=== PATIENT | female | born 1930 | race Caucasian/White ===

== ENCOUNTER → 2016-11-12 | Outpatient (CLI) | payer OTHER, BC ==
[~2016-11-12] MED LIST: ACET-1175 PO; ATOR10TA82 PO; CLOP1TAB15 PO; CYCL5TAB PO; DOCU-94 PO; ERGO1CAP35 PO; ESCI10TA17 PO; FURO-85 PO; INSDGI SC; LEVO100T PO; SKINCRE34 TOP; TRIA0.1C55 TOP
[2016-11-12 12:49] LABS: BASO % 0.7 %; BASO ABS # 0.07 K/uL (0-0.2); COMPLETE YES; EOS % 2.1 %; IG% 0.4 %; LYMPH ABS # 2.45 K/uL (1.2-3.4); MEAN CELL VOLUME 89.2 fL (80-100); MEAN CORPUSCULAR HEMOGLOBIN 28.4 pg (25-34); MEAN CORPUSCULAR HGB CONC 31.8 g/dl (32-36); MEAN PLATELET VOLUME 10.5 fL (7.4-10.4); MONO % 5.7 %; NEUT % 68.1 %; PLATELET COUNT 336 K/uL (130-400); RED BLOOD COUNT 4.37 M/uL (4.2-5.4); WHITE BLOOD COUNT 10.63 K/uL (4.8-10.8)
[2016-11-12 13:36] LABS: BLOOD UREA NITROGEN 23 mg/dl (7-18); BUN/CREATININE RATIO 19.1 (10-20); CARBON DIOXIDE 26 mmol/L (21-32); CHLORIDE 108 mmol/L (98-107); GLUCOSE 117 mg/dl (70-99); POTASSIUM 4.4 mmol/L (3.5-5.1); SODIUM 141 mmol/L (136-145)
== END | disposition home or self-care (01) ==
LOC: C.LABOAKS 14:10
PROVIDERS: ATTEND Internal Medicine Critical Care Medicine
DX: D64.9 Anemia, unspecified (principal); N28.9 Disorder of kidney and ureter, unspecified

== ENCOUNTER → 2017-06-17 | Outpatient (CLI) | payer OTHER, BC ==
[2017-06-17 13:06] LABS: ESTIMATED AVERAGE GLUCOSE 146 mg/dl; HA1C FLAG Normal (Normal)
== END | disposition home or self-care (01) ==
LOC: C.LABOAKS 09:33
PROVIDERS: ATTEND Nurse Practitioner
DX: E11.9 Type 2 diabetes mellitus without complications (principal)

== ENCOUNTER → 2017-06-24 | Outpatient (CLI) | payer OTHER, BC ==
[2017-06-24 12:48] LABS: HEMATOCRIT 36.9 % (37-47); MEAN CELL VOLUME 86.4 fL (80-100); MEAN CORPUSCULAR HEMOGLOBIN 28.1 pg (25-34); MEAN CORPUSCULAR HGB CONC 32.5 g/dl (32-36); MEAN PLATELET VOLUME 10.5 fL (7.4-10.4); PLATELET COUNT 317 K/uL (130-400); RED CELL DISTRIBUTION WIDTH SD 44.2 fL (36.4-46.3); WHITE BLOOD COUNT 9.36 K/uL (4.8-10.8)
[2017-06-24 13:07] LABS: ALBUMIN 3.3 gm/dl (3.4-5.0); BLOOD UREA NITROGEN 26 mg/dl (7-18); CALCIUM 9.3 mg/dl (8.5-10.1); CARBON DIOXIDE 26 mmol/L (21-32); GLUCOSE 114 mg/dl (70-99); POTASSIUM 4.2 mmol/L (3.5-5.1); SODIUM 138 mmol/L (136-145)
[2017-06-24 13:08] LABS: PHOSPHORUS 3.9 mg/dl (2.5-4.9)
== END | disposition home or self-care (01) ==
LOC: C.LABOAKS 09:23
PROVIDERS: ATTEND Internal Medicine Nephrology
DX: N18.3 Chronic kidney disease, stage 3 (moderate) (principal); I10 Essential (primary) hypertension; N25.81 Secondary hyperparathyroidism of renal origin; Z86.73 Personal history of transient ischemic attack (TIA), and cerebral infarction without residual deficits; E55.9 Vitamin D deficiency, unspecified

== ENCOUNTER → 2017-09-09 | Outpatient (CLI) | payer OTHER, BC ==
[2017-09-09 13:23] LABS: HEMOGLOBIN A1C 6.4 % (4.5-5.6)
== END | disposition home or self-care (01) ==
LOC: C.LABOAKS 09:27
PROVIDERS: ATTEND Nurse Practitioner
DX: E11.9 Type 2 diabetes mellitus without complications (principal)

== ENCOUNTER 2017-11-04 11:36 | Emergency (ER) | payer OTHER, BC ==
[~2017-11-04] VITALS: Ht 157.5 cm; Wt 101.9 kg
[2017-11-04 11:45] VITALS: TEMP 36.4; Ht 157.5 cm; Wt 101.9 kg
--- NOTE | 2017-11-04 12:22 | EMERGENCY ROOM VISIT NOTE ---
History First contact with patient: 11:41 Chief Complaint: FALL Stated Complaint: FALL History of Present Illness The patient is a 87 year old female who presents to the Emergency Room via EMS after a fall. The patient lives at an assisted living facility. She stood up from her recliner today to go to the bathroom and tangled her feet in a blanket. She fell and hit her right arm on the bedside table, then fell to the ground. Patient has baseline dementia and history is limited secondary to this. She reports pain in her right arm and right ribs. She rates her discomfort a 5/10. There was a skin tear to the right forearm which has already been dressed. Review of Systems Review of systems limited secondary to patient's baseline dementia. Past Medical/Surgical History Medical Problems: (1) CAD (coronary artery disease) (2) Diabetes (3) Diabetic peripheral neuropathy associated with type 2 diabetes mellitus (4) Foot deformity (5) Hypothyroidism (6) Loss of sensation (7) Obesity (8) Pacemaker (9) Skin cancer Family History No pertinent family history Social History Smoking Status: Never Smoker Drug Use: none Marital Status: Housing Status: lives alone Occupation Status: retired Current/Historical Medications Scheduled Atorvastatin (Lipitor), 10 MG PO DAILY Cholecalciferol (Vitamin D3), 50,000 UNITS PO MONTHLY Clopidogrel (Plavix), 75 MG PO DAILY Escitalopram (Lexapro), 10 MG PO DAILY Furosemide (Lasix), 20 MG PO every other day Hydrocortisone (Topical) (Hydrocortisone), 1 APPLN TOP BID Insulin Glargine (Basaglar Kwikpen), 40 UNITS SQ DAILY Levothyroxine Sodium (Synthroid), 100 MCG PO DAILY Nystatin (Topical) (Nystatin), 1 APPLN TOP TID Scheduled PRN Acetaminophen (Tylenol), 650 MG PO Q4 PRN for Pain Docusate Sodium (Colace), 100 MG PO BID PRN for Constipation Miscellaneous Medications Triamcinolone Acetonide (Topic (Triderm) Physical Exam Vital Signs Date Time Temp Pulse Resp B/P (MAP) Pulse Ox O2 Delivery O2 Flow Rate FiO2 11/04/17 14:16 70 18 137/65 96 Room Air 11/04/17 12:51 68 18 149/72 95 Room Air 11/04/17 11:45 36.4 74 18 181/61 94 Room Air Physical Exam VITALS: Vitals are noted on the nurse's note and reviewed by myself. GENERAL: This is an 87-year-old female, in no acute distress, nondiaphoretic, well-developed well-nourished. SKIN: There is a superficial skin tear to the lateral aspect of the right forearm. No lacerations. No active bleeding. HEAD: Normocephalic atraumatic. EARS: External auditory canals clear, tympanic membranes pearly gutierrez without erythema or effusion bilaterally. No hemotympanum. EYES: Pupils equal round and reactive to light and accommodation. Extraocular movements intact. NECK: Supple without nuchal rigidity. Cervical spine is nontender. HEART: Regular rate and rhythm without murmurs gallops or rubs. LUNGS: Clear to auscultation bilaterally without wheezes, rales or rhonchi. CHEST: There is mild tenderness to palpation to the right anterior lower ribs. ABDOMEN: Positive bowel sounds x 4. Soft, nontender to palpation. MUSCULOSKELETAL: There is a large area of ecchymosis and edema to the right upper arm. This area is tender to palpation. The remainder of the extremities are without deformity or tenderness to palpation. Full range of motion throughout. NEURO: Patient was alert and oriented to person and place only. Medical Decision & Procedures ER Provider Diagnostic Interpretation: HEAD WITHOUT CONTRAST (CT) IMPRESSION: 1. No significant change compared to the prior study. No acute intracranial abnormality. CT SCAN OF THE CERVICAL SPINE IMPRESSION: 1. There is no evidence of fracture or subluxation involving the cervical spine. 2. Osteopenia and spondylotic change as above. CT SCAN OF THE CHEST WITHOUT IV CONTRAST IMPRESSION: 1. There is no acute posttraumatic intrathoracic abnormality. 2. Cardiomegaly and emphysema. 3. No airspace consolidation, pleural effusion, or pneumothorax is identified. 4. Cirrhotic liver morphology. 5. Cholelithiasis. 6. Additional findings as above. RIGHT HUMERUS 2 VIEWS IMPRESSION: Soft tissue edema with no radiographic evidence of right humeral fracture. R FOREARM 2 VIEWS ROUTINE IMPRESSION: No acute osseous injury. Medical Decision Differential diagnosis includes fracture, contusion, intracranial bleeding, subdural hematoma, epidural hematoma, among others. The patient was evaluated as above. Multiple imaging studies were performed and read by radiology as noted above. These were negative for any acute fractures. Patient does have a large hematoma to the right upper arm. She has a skin tear to the right forearm which was dressed. She was discharged back to the assisted living facility and will follow up with her PCP. Medication Reconcilliation Current Medication List: was personally reviewed by me Blood Pressure Screening Patient's blood pressure: Elevated blood pressure Blood pressure disposition: Elevated BP felt to be situational Impression Primary Impression: Fall Additional Impressions: Contusion of multiple sites Hematoma of arm Skin tear of forearm without complication Departure Information Dispostion Home / Self-Care Condition GOOD Referrals Tin Kulkarni (PCP) Patient Instructions [facility] Additional Instructions For pain control, you can use the following [id number] medicines (if >12 yo): - Regular strength (325mg/tab) Tylenol (acetaminophen) 2 tabs every 4-6 hours as needed. Do not exceed 12 tablets in a 24 hour period. Avoid taking more than 4 grams (4000 mg) of Tylenol per day. This includes any other sources of acetaminophen you may take on a regular basis. - Regular strength (200 mg/tab) Advil (ibuprofen) 1-2 tabs every 4-6 hours as needed. Do not exceed a dose of 3200 mg per day. Follow-up with primary care this week for a recheck. Problem Qualifiers Primary Impression: Fall Encounter type: initial encounter Qualified Codes: W19.XXXA - Unspecified fall, initial encounter Additional Impressions: Hematoma of arm Encounter type: initial encounter Laterality: right Qualified Codes: S40.021A - Contusion of right upper arm, initial encounter Skin tear of forearm without complication Encounter type: initial encounter Laterality: right Qualified Codes: S51.811A - Laceration without foreign body of right forearm, initial encounter
--- NOTE | 2017-11-04 12:23 | DIAGNOSTIC IMAGING REPORT ---
HEAD WITHOUT CONTRAST (CT) CLINICAL HISTORY: 87 years-old Female presenting with fall, head injury. TECHNIQUE: Multidetector CT imaging of the head was performed without the use of intravenous contrast. IV contrast: None. A dose lowering technique was used consistent with the principles of ALARA (as low as reasonably achievable). COMPARISON: 06/09/2016. CT DOSE (mGy.cm): The estimated cumulative dose is 1647.72. FINDINGS: Treating Plant Operator topogram: Unremarkable. Proportional ventricular and sulcal prominence, likely age-related parenchymal volume loss. Periventricular and subcortical white matter hypoattenuation, nonspecific but likely indicative of chronic small vessel ischemic change. Cystic encephalomalacia and gliosis in the left frontoparietal region consistent with old infarct. No mass effect or midline shift. No hemorrhage or acute territorial infarct. No extra-axial fluid collection. Paranasal sinuses and mastoid air cells clear. Calvarium intact. Superficial subcutaneous nodules along the right frontal region possibly sebaceous cysts. These are unchanged from prior. IMPRESSION: 1. No significant change compared to the prior study. No acute intracranial abnormality. Electronically signed by: Rajendra Aguilar M.D. 11/04/2017 12:21 PM Dictated Date/Time: 11/04/2017 12:18 PM
--- NOTE | 2017-11-04 12:24 | DIAGNOSTIC IMAGING REPORT ---
CT SCAN OF THE CERVICAL SPINE CLINICAL HISTORY: Trauma. Fall. COMPARISON STUDY: CT angiogram of the neck dated 10/28/2014. TECHNIQUE: CT scan of the cervical spine is performed from the skull base to the upper thoracic spine. Images are reviewed in the axial, sagittal, and coronal planes. IV contrast was not administered for this examination. A dose lowering technique was utilized adhering to the principles of ALARA. FINDINGS: Skeletal structures: The skeletal structures are osteopenic. There is no evidence of fracture or subluxation involving the cervical spine. Vertebral body height and alignment are maintained. Anterior osteophytes are noted in the mid to lower cervical region. There is mild straightening of the cervical lordosis. The odontoid process and lateral masses are intact. The atlantoaxial articulation is preserved noting productive degenerative change. The spinous processes appear intact. There is mild to moderate multilevel cervical spondylosis. Uncovertebral and facet arthropathy contribute to neural from stenosis in the lower cervical region. Intervertebral discs: Ndxt-vz-[id number] disc space narrowing is seen at C4-C5, C5-C6, and C6-C7. Mild disc space narrowing is seen at the remaining cervical levels. Central canal: Posterior disc osteophyte complexes at C4-C5, C5-C6, and C6-C7 likely contribute to mild acquired compromise of the central canal. Soft tissues: The prevertebral and paraspinous soft tissues are within normal limits. Pacemaker leads are noted in the left axillary region. The thyroid gland is atrophic. Calvarium: The visualized calvarium at the skull base appears intact. Brain parenchyma: Partially visualized brain parenchyma the skull base is within normal limits noting age-related involutional change. Sinuses and mastoids: The visualized paranasal sinuses are clear. The mastoid air cells are well pneumatized. Lung apices: Clear as visualized. IMPRESSION: 1. There is no evidence of fracture or subluxation involving the cervical spine. 2. Osteopenia and spondylotic change as above. Electronically signed by: Papo Wing M.D. 11/04/2017 12:23 PM Dictated Date/Time: 11/04/2017 12:20 PM
[2017-11-04] MEDS ORDERED: NYST80OI TOP (12:28)
[2017-11-04] MEDS ORDERED: HYDR2.5L TOP (12:28)
[2017-11-04] MEDS ORDERED: INSU100I23 SQ (12:28)
[2017-11-04] MEDS ORDERED: TRIA0.1C2 (12:28)
[2017-11-04] MEDS ORDERED: CHOL1CAP95 PO (12:28)
--- NOTE | 2017-11-04 12:31 | DIAGNOSTIC IMAGING REPORT ---
CT SCAN OF THE CHEST WITHOUT IV CONTRAST CLINICAL HISTORY: Fall. Right rib injury. COMPARISON STUDY: Chest x-ray dated 06/09/2016. TECHNIQUE: CT scan of the thorax was performed from the thoracic inlet to the upper abdomen. Images are reviewed in the axial, sagittal, and coronal planes. IV contrast was not administered for this examination as per the referring clinician. A dose lowering technique was utilized adhering to the principles of ALARA. CT DOSE: 1647.72 mGy.cm FINDINGS: Thyroid: Atrophic. Thoracic aorta: There is atherosclerotic calcification of the thoracic aorta, which is normal in caliber and demonstrates standard 3-vessel arch anatomy. Heart: A 2-lead cardiac pacemaker is present in the left chest wall. The heart is enlarged and without pericardial effusion. There are coronary artery calcifications. Lungs and pleural spaces: There is mild emphysematous change. No airspace consolidation, pleural effusion, or pneumothorax is identified. There is elevation of right hemidiaphragm and bibasilar atelectasis. The trachea and central airways are clear. A punctate calcified granuloma is seen at the left apex. Mediastinum: There is no mediastinal lymphadenopathy. Elen: Not well assessed without IV contrast. Axillae: There is no axillary lymphadenopathy. Upper abdomen: There is a small hiatal hernia. Numerous calcified gallstones are identified. The liver is cirrhotic in morphology and slightly heterogeneous in attenuation. There is nodularity of the surface contour. A 1.9 cm left adrenal nodule meets CT criteria for a fat-containing adenoma. Skeletal structures: The skeletal structures are osteopenic. The bony thorax appears intact. No lytic or blastic bony lesions are seen. IMPRESSION: 1. There is no acute posttraumatic intrathoracic abnormality. 2. Cardiomegaly and emphysema. 3. No airspace consolidation, pleural effusion, or pneumothorax is identified. 4. Cirrhotic liver morphology. 5. Cholelithiasis. 6. Additional findings as above. Electronically signed by: Papo Wing M.D. 11/04/2017 12:30 PM Dictated Date/Time: 11/04/2017 12:19 PM
--- NOTE | 2017-11-04 12:43 | DIAGNOSTIC IMAGING REPORT ---
RIGHT HUMERUS 2 VIEWS CLINICAL HISTORY: Fall with right arm injury. FINDINGS: AP and lateral views of the right humerus are obtained. No prior studies are available for comparison at the time of dictation. The skeletal structures are osteopenic. No right humeral fracture is identified. The shoulder and elbow joints are grossly maintained. Soft tissue edema is present in the upper extremity. IMPRESSION: Soft tissue edema with no radiographic evidence of right humeral fracture. Electronically signed by: Papo Wing M.D. 11/04/2017 12:42 PM Dictated Date/Time: 11/04/2017 12:41 PM
--- NOTE | 2017-11-04 12:59 | DIAGNOSTIC IMAGING REPORT ---
R FOREARM 2 VIEWS ROUTINE CLINICAL HISTORY: 87 years-old Female presenting with fall, right arm injury. TECHNIQUE: Frontal and lateral views of the right forearm are obtained. COMPARISON: None. FINDINGS: Osteopenia may be present. No acute fracture or malalignment. No advanced degenerative change. No radiographic soft tissue abnormality. IMPRESSION: No acute osseous injury. Electronically signed by: Rajendra Aguilar M.D. 11/04/2017 12:57 PM Dictated Date/Time: 11/04/2017 12:56 PM
[2017-11-04 14:16] VITALS: BP 137/65; PULSE 70; O2SAT 96
== END 2017-11-04 14:38 | disposition home or self-care (01) ==
LOC: EDBD 11:36 → C.EDB 11:37
DX: S51.811A Laceration without foreign body of right forearm, initial encounter (principal); S40.021A Contusion of right upper arm, initial encounter; W01.190A Fall on same level from slipping, tripping and stumbling with subsequent striking against furniture, initial encounter; Y92.098 Other place in other non-institutional residence as the place of occurrence of the external cause; I25.10 Atherosclerotic heart disease of native coronary artery without angina pectoris; E03.9 Hypothyroidism, unspecified; Z95.0 Presence of cardiac pacemaker; Z79.899 Other long term (current) drug therapy; J43.9 Emphysema, unspecified

== ENCOUNTER → 2018-02-10 | Outpatient (CLI) | payer OTHER, BC ==
[~2018-02-10] MED LIST changes: +CHOL1CAP95 PO; -CYCL5TAB PO; -ERGO1CAP35 PO; +HYDR2.5L TOP; -INSDGI SC; +INSU100I23 SQ; +NYST80OI TOP; -SKINCRE34 TOP; +TRIA0.1C2; -TRIA0.1C55 TOP
== END | disposition home or self-care (01) ==
LOC: C.LABOAKS 16:25
PROVIDERS: ATTEND Internal Medicine Cardiovascular Disease
DX: Z00.00 Encounter for general adult medical examination without abnormal findings (principal); I10 Essential (primary) hypertension

== ENCOUNTER 2018-02-24 22:53 | Emergency (ER) | payer OTHER, BC ==
[~2018-02-24] VITALS: Ht 152.4 cm; Wt 101.4 kg
[2018-02-24 23:01] VITALS: TEMP 36.6; Ht 152.4 cm; Wt 101.4 kg
--- NOTE | 2018-02-24 23:21 | EMERGENCY ROOM VISIT NOTE ---
History Report prepared by Lexii: Justin Haas Under the Supervision of: Dr. Delon Irizarry M.D. First contact with patient: 23:11 Chief Complaint: FALL Stated Complaint: FALL/ R ARM & HEAD PAIN History of Present Illness The patient is an 87 year old female who presents to the Emergency Room with complaints of constant right shoulder pain beginning 6 hours ago. The nursing staff states the patient fell at 1700 this evening. They report she is mildly confused at baseline. The nursing staff notes the patient was sent here for evaluation because the staff at the [place] thought she may have hit her head, and she is currently taking Plavix. The patient states she fell trying to go to the bathroom. She reports she falls easily. The patient notes she does not know if she hit her head. She states she fell onto her right arm and moving her arm hurts. The patient notes he has a mild headache, but she denies LOC. She also denies chest pain and shortness of breath. The patient notes a history of a stroke. She denies focal weakness and similar symptoms to when she had a stroke. The patient denies taking Coumadin. Source of History: patient, prison notes, nursing staff Onset: 6 hours ago Position: shoulder (right) Timing: constant Modifying Factors (Worsening): movement Associated Symptoms: + headache, No LOC, No chest pain, No SOB, No weakness Review of Systems See HPI for pertinent positives & negatives. A total of 10 systems reviewed and were otherwise negative. Past Medical & Surgical Medical Problems: (1) CAD (coronary artery disease) (2) Diabetes (3) Diabetic peripheral neuropathy associated with type 2 diabetes mellitus (4) Foot deformity (5) Hypothyroidism (6) Loss of sensation (7) Obesity (8) Pacemaker (9) Skin cancer Old medical records were reviewed. Nurse's notes were reviewed and I agree with. Family History No pertinent family history Social History Smoking Status: Former Smoker Drug Use: none Marital Status: Housing Status: lives alone Occupation Status: retired Current/Historical Medications Scheduled Atorvastatin (Lipitor), 10 MG PO DAILY Cholecalciferol (Vitamin D3), 50,000 UNITS PO MONTHLY Clopidogrel (Plavix), 75 MG PO DAILY Escitalopram (Lexapro), 10 MG PO DAILY Furosemide (Lasix), 20 MG PO every other day Hydrocortisone (Topical) (Hydrocortisone), 1 APPLN TOP BID Insulin Glargine (Basaglar Kwikpen), 40 UNITS SQ DAILY Levothyroxine Sodium (Synthroid), 100 MCG PO DAILY Nystatin (Topical) (Nystatin), 1 APPLN TOP TID Scheduled PRN Acetaminophen (Tylenol), 650 MG PO Q4 PRN for Pain Docusate Sodium (Colace), 100 MG PO BID PRN for Constipation Miscellaneous Medications Triamcinolone Acetonide (Topic (Triderm) Allergies Coded Allergies: Sulfa Drugs (Verified Allergy, Intermediate, BLISTERS, HIVES (TAKES LASIX AT HOME, 11/17/06), 11/04/17) Morphine (Unverified Allergy, Unknown, pt unsure, 11/04/17) Physical Exam Vital Signs Date Time Temp Pulse Resp B/P (MAP) Pulse Ox O2 Delivery O2 Flow Rate FiO2 02/25/18 00:59 71 18 167/60 95 02/25/18 00:18 70 18 178/58 94 Room Air 02/24/18 23:01 36.6 77 20 225/75 94 Room Air Physical Exam General: Non-ill appearing older female in no acute distress. HEENT: Normal cephalic atraumatic. Pupils are equal round and reactive to light. Extraocular movements are intact. Oropharynx is pink with moist mucous membranes. No swelling of the mouth lips or tongue. Neck: Supple with a midline trachea. No meningeal signs or stiffness, no JVD or bruits. No Stridor. Chest: Clear to auscultation bilaterally. No wheezes or rhonchi. No increased work of breathing. Heart: regular rate and rhythm. Abdomen: Soft nontender, nondistended without rebound guarding or rigidity. Extremities: No cyanosis clubbing or edema. No calf tenderness or assymetry. Few small skin tears on the right arm. Tender to the right axilla. Lower extremity vascular disease. Spine/Back. Non tender to palpation. No CVA tenderness Skin: Good turgor without rashes. Neurologic exam: Cranial nerves two through 12 are intact. Motor and sensation are intact and symmetrical throughout. Awake, alert, and oriented x3. Answers questions appropriately. Medical Decision & Procedures ER Provider Diagnostic Interpretation: X-ray results as stated below per interpretation by me: Shoulder X-ray: Two view: No fracture or dislocation. Chest X-ray: Two view: No rib fracture or pneumothorax seen. Poor inspiratory effort. Pacemaker in place. Radiology results as stated below per my review and [employer] radiologist interpretation: CT HEAD: No intracranial hemorrhage or skull fracture. Atrophy with small vessel disease. Encephalomalacia in the left parietal lobe. Scalp nodules. Cataract surgery. Radiologist: Ebony Jules MD Study ready at 2339 and initial results transmitted at 2341. ED Course 2312: Past medical records reviewed. The patient was evaluated in room B04B, and a complete history and physical examination were performed. 0011: Upon reevaluation, the patient is resting comfortably. I discussed the results and treatment plan with her. She verbalized agreement of the treatment plan. The patient was discharged home. Medical Decision Differentials include, but are not limited to; orthopedic injury, syncope, fracture, intracranial hemorrhage, electrolyte or metabolic abnormality. This patient comes in as described above. She was placed in room before. She suffered a mechanical fall. She does not think she hit her head but staff was not sure she has a mild headache and is on Plavix a center here she also has pain along her right axilla/shoulder and skin tears on her right elbow and forearm. The the elbow form do not seem to be tender themselves. She is not exactly sure when her last tetanus shot was but believes is up-to-date. She recalls entire accident and did not have any chest pain or syncope or numbness or weakness. CAT scan of her head was unremarkable and there is no evidence of acute intracranial hemorrhage. Shoulder x-ray as well as chest x-ray were unremarkable for any fracture dislocation or pneumothorax. she looks well and [facility]. I think this is reasonable I will discharge her. She should not be up with assistance only return if increasing pain, worsening symptoms, any new problems or concerns. She is happy the plan and discharged to home. Head Trauma GCS Score: 15 Medication Reconcilliation Current Medication List: was personally reviewed by me Blood Pressure Screening Patient's blood pressure: Elevated blood pressure Blood pressure disposition: Referred to PCP Impression Primary Impression: Closed head injury Additional Impression: Contusion of right shoulder Scribe Attestation The scribe's documentation has been prepared under my direction and personally reviewed by me in its entirety. I confirm that the note above accurately reflects all work, treatment, procedures, and medical decision making performed by me. Departure Information Dispostion Home / Self-Care Referrals [facility] (PCP) Forms HOME CARE DOCUMENTATION FORM, IMPORTANT VISIT INFORMATION Patient Instructions My [facility] Additional Instructions Be careful when getting up and down. Ask for assistance Return if: Worsening of symptoms, fever or chills, not acting like self, increasing pain or problems, any new problems or concerns Follow-up with your doctor within the next couple days for recheck or return to the ER at any point if symptoms worsen Problem Qualifiers Primary Impression: Closed head injury Encounter type: initial encounter Qualified Codes: S09.90XA - Unspecified injury of head, initial encounter Additional Impression: Contusion of right shoulder Encounter type: initial encounter Qualified Codes: S40.011A - Contusion of right shoulder, initial encounter
[2018-02-25 00:59] VITALS: BP 167/60; PULSE 71; O2SAT 95
--- NOTE | 2018-02-25 06:36 | DIAGNOSTIC IMAGING REPORT ---
R SHOULDER MIN 2 VIEWS ROUTINE HISTORY: 87 years-old Female eval for trauma acute right shoulder pain status post fall COMPARISON: Right humerus radiographs 11/04/2017 TECHNIQUE: 3 views of the right shoulder FINDINGS: Bones appear mildly demineralized. Mild glenohumeral and mild to moderate AC joint osteoarthritis. No acute fracture or dislocation. No opaque foreign body. IMPRESSION: No acute fracture or dislocation. The above report was generated using voice recognition software. It may contain grammatical, syntax or spelling errors. Electronically signed by: Franc Valencia M.D. 02/25/2018 6:34 AM Dictated Date/Time: 02/25/2018 6:33 AM
--- NOTE | 2018-02-25 06:38 | DIAGNOSTIC IMAGING REPORT ---
CT HEAD WITHOUT CONTRAST (CT) CLINICAL HISTORY: Increasing confusion status post head trauma COMPARISON STUDY: 11/04/2017 TECHNIQUE: Axial CT of the brain is performed from the vertex to the skull base. IV contrast was not administered for this examination. A dose lowering technique was utilized adhering to the principles of ALARA. CT DOSE: 537.48 mGy.cm FINDINGS: No intra or extra-axial mass lesions are visualized. There is no CT evidence of acute cortical infarction. There is no evidence of midline shift. There is no acute hemorrhage. No calvarial fractures are visualized. There are patchy white matter hypodensities likely on a small vessel basis. 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 There is no evidence of pathologic ventricular dilatation. There is no evidence of acute sinusitis. Frontal scalp nodules likely represent sebaceous cysts. IMPRESSION: No acute intracranial findings Electronically signed by: Holland Navarrete M.D. 02/25/2018 6:37 AM Dictated Date/Time: 02/25/2018 6:35 AM
--- NOTE | 2018-02-25 06:40 | DIAGNOSTIC IMAGING REPORT ---
CHEST 2 VIEWS ROUTINE HISTORY: 87 years-old Female eval for trauma acute chest trauma status post fall COMPARISON: Chest radiograph 06/09/2016, chest CT 11/04/2017, CT abdomen and pelvis 10/14/2014 TECHNIQUE: AP and lateral views of the chest FINDINGS: Left subclavian pacer is noted with leads overlying the right heart. Cardiac silhouette is again enlarged. Calcification of the aorta. Mild right hemidiaphragmatic elevation. Moderate vascular congestion without pneumothorax, large pleural effusion or overt pulmonary edema. Hazy opacities about the left lung base suggest atelectasis. Degenerative changes of the shoulders and spine. Mild anterior endplate compression deformity of what appears to be the L2 vertebral body appears new from comparison. IMPRESSION: 1. No acute process. 2. Cardiomegaly with pulmonary vascular congestion. 3. 25% anterior endplate compression deformity of a lumbar vertebral segment, likely L2 is new from comparison CT 10/14/2014. Correlate clinically to exclude acute injury. The above report was generated using voice recognition software. It may contain grammatical, syntax or spelling errors. Electronically signed by: Franc Valencia M.D. 02/25/2018 6:38 AM Dictated Date/Time: 02/25/2018 6:35 AM
== END 2018-02-25 01:00 | disposition home or self-care (01) ==
LOC: EDBD 22:53 → C.EDB 22:54
DX: S40.011A Contusion of right shoulder, initial encounter (principal); W19.XXXA Unspecified fall, initial encounter; Y92.199 Unspecified place in other specified residential institution as the place of occurrence of the external cause; I25.10 Atherosclerotic heart disease of native coronary artery without angina pectoris; E11.40 Type 2 diabetes mellitus with diabetic neuropathy, unspecified; E03.9 Hypothyroidism, unspecified; E66.9 Obesity, unspecified; Z95.0 Presence of cardiac pacemaker; Z85.828 Personal history of other malignant neoplasm of skin; Z87.891 Personal history of nicotine dependence; Z79.01 Long term (current) use of anticoagulants; Z79.899 Other long term (current) drug therapy; Z88.2 Allergy status to sulfonamides; Z88.5 Allergy status to narcotic agent

== ENCOUNTER 2018-08-01 16:24 | Inpatient (IN) ==
[2018-08-01] MEDS ORDERED: METOCLOPRAMIDE HCL INJ 5 MG/ML 2 ML VIAL IV STA (16:40)
[2018-08-01] MEDS ORDERED: PIPERACILL/TAZOBAC CONSULT ACTIVE PRN ×2 (16:40→21:30)
[2018-08-01] MEDS ORDERED: PIPERACILLIN/TAZOBACTAM 4.5 GM/120 ML BAG IV ONE (16:40)
[2018-08-01 17:03] LABS: Basophils # (auto) 0.02 K/uL (0-0.2); Basophils % (auto) 0.1 %; Eosinophils # (auto) 0.04 K/uL (0-0.5); Eosinophils % (auto) 0.2 %; Hematocrit (blood only) 35.4 % (37-47); Hemoglobin 11.6 g/dL (12.0-16.0); Immature Granulocytes # (auto) 0.06 K/uL (0.00-0.02); Immature Granulocytes % (auto) 0.3 %; Lymphocytes # (auto) 2.39 K/uL (1.2-3.4); Lymphocytes % (auto) 12.9 %; Mean Corpuscular Hgb Conc 32.8 g/dL (32-36); Mean Corpuscular Volume 89.2 fL (80-100); Mean Platelet Volume 9.9 fL (7.4-10.4); Monocytes # (auto) 0.51 K/uL (0.11-0.59); Monocytes % (auto) 2.8 %; Neutrophils # (auto) 15.52 K/uL (1.4-6.5); Neutrophils % (auto) 83.7 %; Platelet Count 247 K/uL (130-400); RDW Coefficient of Variation 14.2 % (11.5-14.5); RDW Standard Deviation 46.4 fL (36.4-46.3); Red Blood Count 3.97 M/uL (4.2-5.4); White Blood Count 18.54 K/uL (4.8-10.8)
[2018-08-01 17:05] LABS: Oxygen Saturation VBG 62.7 %; pH VBG 7.41 (7.36-7.41)
--- NOTE | 2018-08-01 17:13 | XRay Report ---
XR chest 1V portable HISTORY: 88 years-old Female Chest Pain acute atypical chest pain COMPARISON: Chest radiograph 07/04/2018 TECHNIQUE: Portable AP view of the chest FINDINGS: Cardiac silhouette is enlarged, unchanged. Mild pulmonary vascular congestion persists. No pneumothor ax, large pleural effusion or overt pulmonary edema. Unchanged right hemidiaphragmatic elevation. Mil d chronic interstitial coarsening. Degenerative changes of the shoulders and spine. Stable positioning of left subclavian pacer. Calcifi cation the thoracic aortic arch. IMPRESSION: 1. Cardiomegaly with pulmonary vascular congestion. 2. Chronic right hemidiaphragmatic elevation. The above report was generated using voice recognition software. It may contain grammatical, syntax o r spelling errors. Electronically signed by: Franc Valencia M.D. 08/01/2018 5:12 PM
[2018-08-01 17:19] LABS: Alanine Aminotransferase 16 U/L (12-78); Albumin Level 3.1 gm/dl (3.4-5.0); Aspartate Aminotransferase 15 U/L (15-37); BUN Creatinine Ratio 18.1 (10-20); Blood Urea Nitrogen 29 mg/dl (7-18); Carbon Dioxide 26 mmol/L (21-32); Chloride 104 mmol/L (98-107); Creatinine Clr Calc Pharmacy 29.3 ml/min; Est GFR (African American) 33.2; Est GFR (Non-African American) 28.7; Glucose 151 mg/dl (70-99); Magnesium 2.2 mg/dl (1.8-2.4); Potassium 4.3 mmol/L (3.5-5.1); Sodium 138 mmol/L (136-145)
[2018-08-01 17:24] LABS: Albumin Globulin Ratio 0.7 (0.9-2); Alkaline Phosphatase 69 U/L (45-117); Bilirubin,Total 0.6 mg/dl (0.2-1); Globulin 4.5 gm/dl (2.5-4.0); NT Pro B Type Natriuretic Pept 2574 pg/ml (0-1800); Total Protein 7.6 gm/dl (6.4-8.2); Troponin I < 0.015 ng/ml (0-0.045)
[2018-08-01] MEDS ORDERED: FUROSEMIDE 40 MG/4 ML VIAL IV STA (17:35)
--- NOTE | 2018-08-01 17:52 | Emergency Department Note ---
Entered by Chau Thao acting as a scribe for Heriberto Orozco MD History of Present Illness General Chief complaint: Shortness of Breath/Dyspnea Stated complaint: SOB Time Seen by Provider: 08/01/18 16:31 Source: patient and other (nurse) History of Present Illness Onset (ago): hour(s) (found today by staff) Location: chest (lungs) Pain Consistency: + other (persistent) Quality: + other (shortness of breath) Associated symptoms: + other (found with vomit on shirt; denies current nausea) ; no chest pain The patient is an 88 year old white female with a history of CHF who presents to the Emergency Room from [facility] with complaints of persistent shortness of breath. Nursing staff reports that the patient was found by [facility] staff today to be very short of breath with vomit on her shirt. Her temperature was 99 and she was given Duoneb prior to arrival. She states that the patients oxygen saturation is typically around 88% on room air. The patient reports that she does not normally wear supplemental oxygen. She denies current nausea, abdominal pain, or chest pain. She notes that she has never used C-PAP. She reports that she has been short of breath for a long time and is unsure if it has worsened in the past few days. Home Medications Home Medications Medication Instructions Recorded Confirmed Type acetaminophen [Acetaminophen Extra 500 mg PO Q4 PRN MDD 3g/24hr 07/04/18 History Strength] atorvastatin 10 mg PO DAILY 07/04/18 08/01/18 History clopidogrel 75 mg PO DAILY 07/04/18 08/01/18 History ergocalciferol (vitamin D2) 50,000 unit PO WK 07/04/18 08/01/18 History [Vitamin D2] escitalopram oxalate 10 mg PO DAILY 07/04/18 08/01/18 History furosemide 20 mg PO Q OTHER DAY 07/04/18 08/01/18 History levothyroxine 88 mcg PO DAILY 07/04/18 08/01/18 History insulin glargine [Lantus Solostar 35 unit SUBCUT QPM 08/01/18 08/01/18 History U-100 Insulin] loperamide [Imodium A-D] 2 mg PO Q3H PRN MDD 8 TABS 08/01/18 08/01/18 History magnesium hydroxide [Milk of 30 ml PO DAILY PRN 08/01/18 08/01/18 History Magnesia] nystatin 1 applic TOPICAL TID PRN 08/01/18 08/01/18 History Allergies Allergy/AdvReac Type Severity Reaction Status Date / Time Sulfa (Sulfonamide Allergy Intermediate BLISTERS, Verified 08/01/18 17:51 Antibiotics) HIVES morphine Allergy Unknown pt unsure Unverified 08/01/18 17:51 Past Med/Surg History Social History Current Living Situation Comment: [facility] Feels Safe at Home: Yes Smoking Status: Never smoker Review of Systems See HPI for pertinent positives & negatives. and A total of 10 systems reviewed and were otherwise negative Physical Exam Vital Signs Vital Signs - 24 hr 08/01/18 16:35 08/01/18 16:36 08/01/18 16:38 Temperature 37.5 C Temperature Source Oral Sepsis Recent Fever Within 48 Hours Yes Sepsis New/Unexplained Change in Mental Status No Sepsis Action Taken by Nursing Physician Notified Pulse Rate 74 74 73 Pulse Rhythm Regular Pulse Strength Normal Respiratory Rate 39 H 30 H 44 H Respiratory Effort / Characteristics Spontaneous Short of Breath Respiratory Depth Normal Respiratory Pattern Tachypnea Blood Pressure 162/71 H 162/71 H Blood Pressure Mean 101 101 Blood Pressure Position Sitting Pulse Oximetry 94 92 95 Oxygen Delivery Method Nasal Cannula Oxygen Flow Rate 2 Fraction of Inspired Oxygen 08/01/18 16:40 08/01/18 16:41 08/01/18 16:50 Temperature Temperature Source Sepsis Recent Fever Within 48 Hours Sepsis New/Unexplained Change in Mental Status Sepsis Action Taken by Nursing Pulse Rate 73 74 73 Pulse Rhythm Pulse Strength Respiratory Rate 21 40 H 27 H Respiratory Effort / Characteristics Respiratory Depth Respiratory Pattern Blood Pressure Blood Pressure Mean Blood Pressure Position Pulse Oximetry 97 88 L 95 Oxygen Delivery Method Nasal Cannula Oxygen Flow Rate 94 Fraction of Inspired Oxygen 08/01/18 17:00 08/01/18 17:01 08/01/18 17:10 Temperature Temperature Source Sepsis Recent Fever Within 48 Hours Sepsis New/Unexplained Change in Mental Status Sepsis Action Taken by Nursing Pulse Rate 71 71 72 Pulse Rhythm Pulse Strength Respiratory Rate 22 38 H 44 H Respiratory Effort / Characteristics Labored Respiratory Depth Respiratory Pattern Tachypnea Blood Pressure 158/47 H Blood Pressure Mean 84 Blood Pressure Position Pulse Oximetry 96 96 97 Oxygen Delivery Method Oxygen Flow Rate Fraction of Inspired Oxygen 30 08/01/18 17:20 08/01/18 17:30 08/01/18 17:32 Temperature Temperature Source Sepsis Recent Fever Within 48 Hours Sepsis New/Unexplained Change in Mental Status Sepsis Action Taken by Nursing Pulse Rate 71 69 72 Pulse Rhythm Pulse Strength Respiratory Rate 42 H 40 H 46 H Respiratory Effort / Characteristics Respiratory Depth Respiratory Pattern Blood Pressure 158/47 H Blood Pressure Mean 84 Blood Pressure Position Pulse Oximetry 97 97 97 Oxygen Delivery Method Oxygen Flow Rate Fraction of Inspired Oxygen 08/01/18 18:00 08/01/18 19:00 Temperature Temperature Source Sepsis Recent Fever Within 48 Hours Sepsis New/Unexplained Change in Mental Status Sepsis Action Taken by Nursing Pulse Rate 68 68 Pulse Rhythm Pulse Strength Respiratory Rate 35 H 38 H Respiratory Effort / Characteristics Respiratory Depth Respiratory Pattern Blood Pressure 160/50 H 157/46 H Blood Pressure Mean 86 83 Blood Pressure Position Pulse Oximetry 97 97 Oxygen Delivery Method Oxygen Flow Rate Fraction of Inspired Oxygen GENERAL: Mild respiratory distress, NC in place, tachypneic EYE EXAM: Normal conjunctiva. PERRL, no anisocoria and EOM's grossly intact w/o pain. OROPHARYNX: Moist mucous membranes. NECK: Supple, no nuchal rigidity, no adenopathy, non-tender. No signs of meningismus. CHEST: Device in chest noted. LUNGS: Mild respiratory distress, NC in place, tachypneic, mildly decreased breath sounds throughout, crackles on the right side. HEART: NSR, no MRG. ABDOMEN: Abdomen soft, non-tender, normo-active bowel sounds, no masses, no rebound or guarding. BACK: No CVA TTP. SKIN: No rashes and no bruising. UPPER EXTREMITIES: Upper extremities are grossly normal. LOWER EXTREMITIES: 1+ b/l edema with associated redness, no asymmetry. No calf pain. NEURO EXAM: Follows commands, able to answer some questions appropriately, moves all 4 extremities. Course 1638: Past medical records reviewed. The patient was evaluated in room C7, and a complete history and physical examination were performed. 1649: I attempted to contact the patients son but was unable to reach him. 1743: I consulted Dr. Francesco Franz Hospitalist. She will reevaluate the patient for hospitalization. Consultations Consultation #1: I consulted Dr. Francesco Franz Hospitaladan. She will reevaluate the patient for hospitalization. Time: 17:44 Administered Medications Discontinued Medications Furosemide (Lasix) 40 mg IV NOW STA Stop: 08/01/18 17:36 Last Admin: 08/01/18 17:51 Dose: 40 mg Piperacillin Sod/Tazobactam Sod (Zosyn) 4.5 gm in 120 mls @ 240 mls/hr IV NOW ONE Stop: 08/01/18 17:09 Last Infusion: 08/01/18 19:28 Dose: 0 mls/hr Admin: 08/01/18 17:31 Dose: 240 mls/hr Metoclopramide HCl (Reglan) 10 mg IV NOW STA Stop: 08/01/18 16:41 Last Admin: 08/01/18 17:31 Dose: 10 mg Medical Decision Making Medical Records Attestation: I reviewed the patient's medical records. Home Medications Current Medication List: was personally reviewed by me Laboratory Data Attestation: I reviewed the patient's lab results. Result diagrams: 08/01/18 16:46 08/01/18 16:46 Lab Results 08/01/18 08/01/18 08/01/18 Range/Units 16:40 16:46 16:46 WBC (4.8-10.8) K/uL RBC (4.2-5.4) M/uL Hgb (12.0-16.0) g/dL Hct (37-47) % MCV (80-100) fL MCH (25-34) pg MCHC (32-36) g/dL RDW Std Deviation (36.4-46.3) fL RDW Coeff of Ayden (11.5-14.5) % Plt Count (130-400) K/uL MPV (7.4-10.4) fL Immature Gran % (Auto) % Neut % (Auto) % Lymph % (Auto) % Hamlin % (Auto) % Eos % (Auto) % Baso % (Auto) % Immature Gran # (Auto) (0.00-0.02) K/uL Neut # (Auto) (1.4-6.5) K/uL Lymph # (Auto) (1.2-3.4) K/uL Hamlin # (Auto) (0.11-0.59) K/uL Eos # (Auto) (0-0.5) K/uL Baso # (Auto) (0-0.2) K/uL VBG pH 7.41 (7.36-7.41) VBG pCO2 45 (38-50) mmHg VBG pO2 32 mmHg VBG HCO3 28 mmol/L VBG O2 Saturation 62.7 % VBG Base Excess 3.0 mEq/L Barometric Pressure 734.3 mm/Hg Sodium (136-145) mmol/L Potassium (3.5-5.1) mmol/L Chloride (98-107) mmol/L Carbon Dioxide (21-32) mmol/L Anion Gap (3-11) BUN (7-18) mg/dl Creatinine (0.6-1.2) mg/dl Est Cr Clr Drug Dosing ml/min Est GFR ( Amer) Est GFR (Non-Af Amer) BUN/Creatinine Ratio (10-20) Glucose (70-99) mg/dl Lactate 1.3 (0.4-2.0) mmol/L Calcium (8.5-10.1) mg/dl Magnesium Cancelled Total Bilirubin (0.2-1) mg/dl AST (15-37) U/L ALT (12-78) U/L Alkaline Phosphatase (45-117) U/L Troponin I (0-0.045) ng/ml NT-Pro-B Natriuret Pep (0-1800) pg/ml Total Protein (6.4-8.2) gm/dl Albumin (3.4-5.0) gm/dl Globulin (2.5-4.0) gm/dl Albumin/Globulin Ratio (0.9-2) Lipase (73-393) U/L Influenza Type A Ag (Neg) Influenza Type B Ag (Neg) 08/01/18 08/01/18 08/01/18 Range/Units 16:46 16:46 16:46 WBC 18.54 H (4.8-10.8) K/uL RBC 3.97 L (4.2-5.4) M/uL Hgb 11.6 L (12.0-16.0) g/dL Hct 35.4 L (37-47) % MCV 89.2 (80-100) fL MCH 29.2 (25-34) pg MCHC 32.8 (32-36) g/dL RDW Std Deviation 46.4 H (36.4-46.3) fL RDW Coeff of Ayden 14.2 (11.5-14.5) % Plt Count 247 (130-400) K/uL MPV 9.9 (7.4-10.4) fL Immature Gran % (Auto) 0.3 % Neut % (Auto) 83.7 % Lymph % (Auto) 12.9 % Hamlin % (Auto) 2.8 % Eos % (Auto) 0.2 % Baso % (Auto) 0.1 % Immature Gran # (Auto) 0.06 H (0.00-0.02) K/uL Neut # (Auto) 15.52 H (1.4-6.5) K/uL Lymph # (Auto) 2.39 (1.2-3.4) K/uL Hamlin # (Auto) 0.51 (0.11-0.59) K/uL Eos # (Auto) 0.04 (0-0.5) K/uL Baso # (Auto) 0.02 (0-0.2) K/uL VBG pH (7.36-7.41) VBG pCO2 (38-50) mmHg VBG pO2 mmHg VBG HCO3 mmol/L VBG O2 Saturation % VBG Base Excess mEq/L Barometric Pressure mm/Hg Sodium 138 (136-145) mmol/L Potassium 4.3 (3.5-5.1) mmol/L Chloride 104 (98-107) mmol/L Carbon Dioxide 26 (21-32) mmol/L Anion Gap 8.0 (3-11) BUN 29 H (7-18) mg/dl Creatinine 1.60 H (0.6-1.2) mg/dl Est Cr Clr Drug Dosing 29.3 ml/min Est GFR ( Amer) 33.2 Est GFR (Non-Af Amer) 28.7 BUN/Creatinine Ratio 18.1 (10-20) Glucose 151 H (70-99) mg/dl Lactate (0.4-2.0) mmol/L Calcium 9.0 (8.5-10.1) mg/dl Magnesium 2.2 Total Bilirubin 0.6 (0.2-1) mg/dl AST 15 (15-37) U/L ALT 16 (12-78) U/L Alkaline Phosphatase 69 (45-117) U/L Troponin I < 0.015 (0-0.045) ng/ml NT-Pro-B Natriuret Pep 2574 H Cancelled (0-1800) pg/ml Total Protein 7.6 (6.4-8.2) gm/dl Albumin 3.1 L (3.4-5.0) gm/dl Globulin 4.5 H (2.5-4.0) gm/dl Albumin/Globulin Ratio 0.7 L (0.9-2) Lipase 95 (73-393) U/L Influenza Type A Ag (Neg) Influenza Type B Ag (Neg) 08/01/18 Range/Units 16:51 WBC (4.8-10.8) K/uL RBC (4.2-5.4) M/uL Hgb (12.0-16.0) g/dL Hct (37-47) % MCV (80-100) fL MCH (25-34) pg MCHC (32-36) g/dL RDW Std Deviation (36.4-46.3) fL RDW Coeff of Ayden (11.5-14.5) % Plt Count (130-400) K/uL MPV (7.4-10.4) fL Immature Gran % (Auto) % Neut % (Auto) % Lymph % (Auto) % Hamlin % (Auto) % Eos % (Auto) % Baso % (Auto) % Immature Gran # (Auto) (0.00-0.02) K/uL Neut # (Auto) (1.4-6.5) K/uL Lymph # (Auto) (1.2-3.4) K/uL Hamlin # (Auto) (0.11-0.59) K/uL Eos # (Auto) (0-0.5) K/uL Baso # (Auto) (0-0.2) K/uL VBG pH (7.36-7.41) VBG pCO2 (38-50) mmHg VBG pO2 mmHg VBG HCO3 mmol/L VBG O2 Saturation % VBG Base Excess mEq/L Barometric Pressure mm/Hg Sodium (136-145) mmol/L Potassium (3.5-5.1) mmol/L Chloride (98-107) mmol/L Carbon Dioxide (21-32) mmol/L Anion Gap (3-11) BUN (7-18) mg/dl Creatinine (0.6-1.2) mg/dl Est Cr Clr Drug Dosing ml/min Est GFR ( Amer) Est GFR (Non-Af Amer) BUN/Creatinine Ratio (10-20) Glucose (70-99) mg/dl Lactate (0.4-2.0) mmol/L Calcium (8.5-10.1) mg/dl Magnesium Total Bilirubin (0.2-1) mg/dl AST (15-37) U/L ALT (12-78) U/L Alkaline Phosphatase (45-117) U/L Troponin I (0-0.045) ng/ml NT-Pro-B Natriuret Pep (0-1800) pg/ml Total Protein (6.4-8.2) gm/dl Albumin (3.4-5.0) gm/dl Globulin (2.5-4.0) gm/dl Albumin/Globulin Ratio (0.9-2) Lipase (73-393) U/L Influenza Type A Ag Neg for Influ A (Neg) Influenza Type B Ag Neg for Influ B (Neg) Imaging Data Radiologist's Impression: Radiology results as stated below per my review and the radiologist's interpretation: XR chest 1V portable HISTORY: 88 years-old Female Chest Pain acute atypical chest pain COMPARISON: Chest radiograph 07/04/2018 TECHNIQUE: Portable AP view of the chest FINDINGS: Cardiac silhouette is enlarged, unchanged. Mild pulmonary vascular congestion persists. No pneumothorax, large pleural effusion or overt pulmonary edema. Unchanged right hemidiaphragmatic elevation. Mild chronic interstitial coarsening. Degenerative changes of the shoulders and spine. Stable positioning of left subclavian pacer. Calcification the thoracic aortic arch. IMPRESSION: 1. Cardiomegaly with pulmonary vascular congestion. 2. Chronic right hemidiaphragmatic elevation. The above report was generated using voice recognition software. It may contain grammatical, syntax or spelling errors. Electronically signed by: Franc Valencia M.D. 08/01/2018 5:12 PM ECG Data Attestation: I personally reviewed and interpreted this ECG as follows: Indication: SOB/dyspnea Rate (beats per minute): 75 Rhythm: other (atrial-sensed, ventricular-paced) Findings: + other (wide QRS), + LBBB, + Q waves (throughout) and + T-wave inversion (high lateral leads) Comparison ECG Date: from (07/04/18) Change: no significant change (rhythm and morphology unchanged) Blood Pressure Blood Pressure Findings: Elevated blood pressure Blood Pressure Disposition: further management by hospitalist YOLANDA Narrative Prior records/ancillary studies reviewed. Triage nursing notes reviewed. The patient is an 88 year old white female with a history of CHF who presents to the Emergency Room from [facility] with complaints of persistent shortness of breath. Differential diagnosis: Etiologies such as infections, reactive airway disease, pneumonia, pneumothorax , COPD, CHF, cardiac ischemia, pulmonary embolism, musculoskeletal, gastrointestinal, as well as others were entertained. Patient was seen and evaluated the bedside per report the patient was reportedly found being tachypneic and the patient had some vomitus over her chest. On exam the patient is tachypneic in mild respiratory distress. The patient does have a little bit of lower extremity edema. Patient was placed on BiPAP along with blood work EKG troponin chest x-ray and VBG were obtained. The patient does not use any oxygen at baseline. The patient initially required supplemental O2 as room air O2 sat was 88%. Patient was also covered with Zosyn for empiric coverage given the concern for aspiration pneumonia or pneumonitis. The patient does have a white count of 18. Patient is tracely anemic with a hemoglobin of 11.6. Patient's VBG shows a normal PCO2 as well as pH. The patient is not suffering from hypercarbic respiratory failure. The patient has a normal bicarb so I do not believe the patient is acidotic especially given her normal pH on her VBG. Patient does have some very mild AK I with a creatinine 1.6. BNP is slightly elevated. Patient was given a dose of Lasix. Flu was negative. Chest x-ray shows some mild vascular congestion was given. I did speak with the on-call hospitalist who agreed to further evaluate treat the patient. Patient was admitted to the medicine service. Impression & Plan Aspiration pneumonia, Respiratory failure with hypoxia Critical Care Time I have personally spent greater than 80 minutes of critical care time in direct management of this patient. This includes bedside care, interpretation of diagnostic studies, and testing, discussion with consultants, patient, and family members, and other require inpatient management activities. This 50 minutes is in excess of all separately billable procedures. Critical Care Time: Yes Total Critical Care Time: 80 Discharge Plan Visit Data Chief Complaint: Shortness of Breath/Dyspnea Stated Complaint: SOB ED Provider: Heriberto Orozco Discharge Problem: Aspiration pneumonia, Respiratory failure with hypoxia Patient Disposition: Being Evaluated by Hospitalist The scribe's documentation has been prepared under my direction and personally reviewed by me in its entirety. I confirm that the note above accurately reflects all work, treatment, procedures, and medical decision making performed by me.
--- NOTE | 2018-08-01 18:58 | History & Physical Report ---
Date of Service August 01, 2018 Assessment & Plan (1) Respiratory failure with hypoxia: Etiologies include acute decompensated heart failure and/or aspiration pneumonia. She is clearly volume overloaded on exam with vascular congestion on chest x-ray. Lung auscultation is limited as the patient was not following commands to take deep breaths on several occasions. However, coarse rhonchi were heard at bases. She is improved somewhat with 600 cc output in response to Lasix 40 mg's IV while in the ER. An additional 20 mg of Lasix was ordered for this evening. She is now off the BiPAP and breathing more easily. She has a Vega in place and will require daily weights and a low-sodium diet. She is currently n.p.o. pending improvement in respiratory status. She was noted to have prehospital vomit on her shirt and was thought to have aspirated, resulting in pneumonia. However, chest x-ray does not reveal any acute infiltrate. She will be covered empirically on Zosyn pending blood cultures and clinical improvement. (2) Acute decompensated heart failure: (3) Aspiration pneumonia: (4) Diabetes: Continue glargine and NovoLog for insulin sliding scale with carb coverage while inpatient. A1c ordered. (5) Hypothyroidism: Continue Synthroid per home dose. (6) CAD (coronary artery disease): EKG reveals a v-paced rhythm. Denies chest pain. Initial troponin is negative. Cont to trend troponin overnight. Suspect CHF has developed over the past week 2/2 sodium rich foods and no chest pain reported this week. Lasix ordered 20mg PO q2dys. May need to be increased upon discharge. Cont medical management with Lipitor 10mg and Plavix. (7) Depression: Cont home dose of Lexapro (8) Obesity: (9) Pacemaker: (10) DVT prophylaxis: Heparin Full Code as discussed above. Dispo-PCU/telemetry Seble Maya DO [facility] Hospitalist ADDENDUM 2300: Still tachypneic around 30 breaths/min. Adding nitro paste to chest wall as unable to run nitro drip on this floor per nursing. [employer] to follow result. Cont BIPAP. Cards consult placed. History of Present Illness Chief Complaint: tachypnea Primary Care Provider: [facility] 88-year-old female who lives at [facility] was found by staff to be tachypneic with vomit on her shirt. Along with her short of breath her temp was 99 F and she was given a DuoNeb prior to arrival. The patient reports she does not normally wear home oxygen. She states that she has been short of breath for the last week. She denies any coughing, fevers, chills. After appearing volume overloaded on exam, she was asked if she felt swollen or if she had gained weight, and she said yes. She reported possible intake of sodium rich foods. She does not appear to track her weight daily. She otherwise denied any coughing, chest pain, abdominal pain, or recent difficulties tolerating p.o. She states she did not vomit today. She states she did not aspirate. On arrival to the ER respiratory rate was 39 breaths/min and she was oxygenating 94% on room air. Despite tachypnea that persisted she maintained good oxygen saturation on minimal supplemental oxygen. She was placed on BiPAP to assist with work of breathing and was given Lasix 40 mg IV, which improved her symptoms by the time she arrived on the floor. At this point her respiratory rate was still in the mid 20s and coarse rhonchi could be heard on lung exam, so she was given an additional 20 mill grams of Lasix IV. Initial output in the Vega of the first dose of Lasix was approximately 600 cc. Allergies Allergy/AdvReac Type Severity Reaction Status Date / Time Sulfa (Sulfonamide Allergy Intermediate BLISTERS, Verified 08/01/18 17:51 Antibiotics) HIVES morphine Allergy Unknown pt unsure Unverified 08/01/18 17:51 Home Medications Home Medications Medication Instructions Recorded Confirmed Type acetaminophen [Acetaminophen Extra 500 mg PO Q4 PRN MDD 3g/24hr 07/04/18 History Strength] atorvastatin 10 mg PO DAILY 07/04/18 08/01/18 History clopidogrel 75 mg PO DAILY 07/04/18 08/01/18 History ergocalciferol (vitamin D2) 50,000 unit PO WK 07/04/18 08/01/18 History [Vitamin D2] escitalopram oxalate 10 mg PO DAILY 07/04/18 08/01/18 History furosemide 20 mg PO Q OTHER DAY 07/04/18 08/01/18 History levothyroxine 88 mcg PO DAILY 07/04/18 08/01/18 History insulin glargine [Lantus Solostar 35 unit SUBCUT QPM 08/01/18 08/01/18 History U-100 Insulin] loperamide [Imodium A-D] 2 mg PO Q3H PRN MDD 8 TABS 08/01/18 08/01/18 History magnesium hydroxide [Milk of 30 ml PO DAILY PRN 08/01/18 08/01/18 History Magnesia] nystatin 1 applic TOPICAL TID PRN 08/01/18 08/01/18 History Past Med/Surg History Medical History CAD (coronary artery disease) (Chronic) Diabetes (Chronic) Hypothyroidism (Chronic) Obesity (Chronic) Skin cancer (Resolved) Pacemaker (Chronic) Altered mental status (Acute) Bilateral knee pain (Acute) Contusion of multiple sites (Acute) Diabetic peripheral neuropathy associated with type 2 diabetes mellitus Facial contusion (Acute) Fall (Acute) Foot deformity Head trauma (Acute) Hematoma of arm (Acute) Loss of sensation Rhabdomyolysis (Acute) Right hip pain (Acute) Right sided weakness (Acute) Sinusitis (Acute) Skin tear of forearm without complication (Acute) Surgical History Hx of appendectomy (Acute) Family History Other Family history non-contributory Social History Current Living Situation: Senior Care Current Living Situation Comment: [facility] Other Information That Helps Us Care for You: No Feels Safe at Home: Yes Safety Concerns: Feels Safe At This Time Smoking Status: Never smoker Do You Dip or Chew Tobacco: No Second Hand Exposure: No Tobacco Cessation Education Requested by Patient: No Hx Alcohol Use: No Hx Substance Use: No Beliefs That Will Affect Care: None Preferred Language: Dominican Communication Ability: Effective Captain Airline Pilot Required: No Review of Systems At least ten systems were reviewed and negative except as indicated in HPI above. Physical Exam 2 Vital Signs (Past 24 Hours): Last Vital Signs Temp 37.5 C 08/01/18 16:36 Pulse 69 08/01/18 17:30 Resp 40 H 08/01/18 17:30 BP 158/47 H 08/01/18 17:00 Pulse Ox 97 08/01/18 17:30 CONSTITUTIONAL: obese, tachypneic on BIPAP, vitals as above, generally ill- appearing EYES: PERRL, external purulent eye drainage on left eye ENT: MMM NECK: trachea midline RESPIRATORY: clear to auscultation bilaterally, no crackles, rales or wheezes, tachypneic and very poor effort. CARDIOVASCULAR: regular rate and rhythm, S1 and 2 heard without murmurs, gallops or rubs, no JVD, 2+ pitting edema in bilateral lower extremities with evidence of erythroderma. GASTROINTESTINAL: normal bowel sounds, soft, nontender, nondistended, no guarding MUSCULOSKELETAL: head is normocephalic and atraumatic, generalized weakness. SKIN: warm and dry NEUROLOGIC: PERRL, no facial palsy, no dysarthria. Oriented to person and place, however, this is even hard to get from her. She is somnolent on the BIPAP. Results & Data Laboratory Results Short CBC 08/01/18 Range/Units 16:46 WBC 18.54 H (4.8-10.8) K/uL Hgb 11.6 L (12.0-16.0) g/dL Hct 35.4 L (37-47) % Plt Count 247 (130-400) K/uL BMP 08/01/18 16:46 Sodium 138 Potassium 4.3 Chloride 104 Carbon Dioxide 26 BUN 29 H Creatinine 1.60 H Glucose 151 H Calcium 9.0 Cardiac Enzymes 08/01/18 Range/Units 16:46 Troponin I < 0.015 (0-0.045) ng/ml Liver Function 08/01/18 Range/Units 16:46 Total Bilirubin 0.6 (0.2-1) mg/dl AST 15 (15-37) U/L ALT 16 (12-78) U/L Alkaline Phosphatase 69 (45-117) U/L Albumin 3.1 L (3.4-5.0) gm/dl Diagnostic Findings XR chest 1V portable HISTORY: 88 years-old Female Chest Pain acute atypical chest pain COMPARISON: Chest radiograph 07/04/2018 TECHNIQUE: Portable AP view of the chest FINDINGS: Cardiac silhouette is enlarged, unchanged. Mild pulmonary vascular congestion persists. No pneumothorax, large pleural effusion or overt pulmonary edema. Unchanged right hemidiaphragmatic elevation. Mild chronic interstitial coarsening. Degenerative changes of the shoulders and spine. Stable positioning of left subclavian pacer. Calcification the thoracic aortic arch. IMPRESSION: 1. Cardiomegaly with pulmonary vascular congestion. 2. Chronic right hemidiaphragmatic elevation. Code Status & VTE Plan Code Status Full code based on conversation with ER physician. Upon my interview, she was too somnolent to discuss. Paperwork from [employer] doesn't include code status. Called son but no answer. Full code until can be confirmed further with patient or documentation from facility. VTE Prophylaxis Plan VTE Prophylaxis will be ordered: Yes Critical Care Time Critical Care Time: No _ (1) Respiratory failure with hypoxia Chronicity: acute Qualified Code(s): J96.01 - Acute respiratory failure with hypoxia (2) Aspiration pneumonia Aspiration pneumonia type: unspecified Laterality: right Lung location: lower lobe of lung Qualified Code(s): J69.0 - Pneumonitis due to inhalation of food and vomit
[2018-08-01] MEDS ORDERED: GLUCAGON FOR INJ 1 MG VIAL SQ PRN (20:50)
[2018-08-01] MEDS ORDERED: DEXTROSE 50% 50 ML SYRINGE IV PRN (20:50)
[2018-08-01] MEDS ORDERED: POLYETHYLENE (MIRALAX) 17 GM PACK PO PRN (20:50)
[2018-08-01] MEDS ORDERED: GLUCOSE 40% GEL 15 GM TUBE PO PRN (20:50)
[2018-08-01] MEDS ORDERED: ACETAMINOPHEN 325 MG TAB PO PRN (20:50)
[2018-08-01] MEDS ORDERED: NITROGLYCERIN SL 0.4 MG/TAB TAB SL PRN (20:50)
[2018-08-01] MEDS ORDERED: CARBOHYDRATES FOR HYPOGLYCEMIA PO PRN (20:50)
[2018-08-01] MEDS ORDERED: GLUCOSE 10 TABS/TUBE PO PRN (20:50)
[2018-08-01] MEDS ORDERED: ONDANSETRON INJ 2 MG/ML 2 ML VIAL IV PRN (20:50)
[2018-08-01] MEDS ORDERED: FUROSEMIDE 20 MG in SYRINGE 0 ML IV ONE (21:30)
[2018-08-01 21:41] LABS: INR 1.1 (0.9-1.1); Partial Thromboplastin Ratio 1.2; Partial Thromboplastin Time 32.2 Seconds (21.0-31.0); Prothrombin Time 10.8 Seconds (9.0-12.0)
[2018-08-01] MEDS ORDERED: HEPARIN SOD 5,000 UNIT/0.5 ML VIAL SQ SCH ×2 (22:00→23:30)
[2018-08-01] MEDS: INSULIN GLARGINE SOLOSTAR 100 UNITS/ML 3 ML PEN SC SCH (22:16)
[2018-08-01] MEDS: INSULIN ASPART 100 UNITS/ML 3 ML PEN SC SCH (22:17)
[2018-08-01] MEDS ORDERED: NITROGLYCERIN 2% OINTMENT 30GM TUBE EXT ONE (23:19)
[2018-08-02] MEDS: PIPERACILLIN/TAZOBACTAM 4.5 GM in DEXTROSE 5% 100 ML IV SCH ×3 (00:11→16:06)
[2018-08-02] MEDS: HEPARIN SOD 5,000 UNIT/0.5 ML VIAL SQ SCH ×3 (05:13→20:50)
[2018-08-02] MEDS: LEVOTHYROXINE SODIUM 88 MCG TABLET PO SCH (05:14)
[2018-08-02 05:55] LABS: Basophils # (auto) 0.03 K/uL (0-0.2); Basophils % (auto) 0.2 %; Eosinophils # (auto) 0.06 K/uL (0-0.5); Eosinophils % (auto) 0.3 %; Hematocrit (blood only) 33.5 % (37-47); Hemoglobin 10.7 g/dL (12.0-16.0); Immature Granulocytes # (auto) 0.05 K/uL (0.00-0.02); Immature Granulocytes % (auto) 0.3 %; Lymphocytes # (auto) 1.36 K/uL (1.2-3.4); Lymphocytes % (auto) 7.8 %; Mean Corpuscular Hgb Conc 31.9 g/dL (32-36); Mean Corpuscular Volume 88.9 fL (80-100); Monocytes % (auto) 5.8 %; Neutrophils # (auto) 14.86 K/uL (1.4-6.5); Neutrophils % (auto) 85.6 %; Platelet Count 247 K/uL (130-400); RDW Coefficient of Variation 14.1 % (11.5-14.5); RDW Standard Deviation 45.7 fL (36.4-46.3); Red Blood Count 3.77 M/uL (4.2-5.4); White Blood Count 17.36 K/uL (4.8-10.8)
[2018-08-02 06:07] LABS: Appearance Urine Clear (Clear); Bacteria Urine Automated Negative (Negative); Bilirubin Urine Negative (Negative); Color Urine Yellow; Glucose Urine UA Negative (Negative); Ketones Urine Negative (Negative); Leukocyte Esterase Urine Trace (Negative); Nitrite Urine Negative (Negative); Protein Urine Trace (Negative); Specific Gravity Urine 1.011 (1.000-1.030); Urobilinogen Urine Negative (Negative)
[2018-08-02 06:28] LABS: BUN Creatinine Ratio 18.5 (10-20); Calcium 8.9 mg/dl (8.5-10.1); Creatinine Clr Calc Pharmacy 26.4 ml/min; Est GFR (African American) 30.7; Est GFR (Non-African American) 26.5; Magnesium 2.2 mg/dl (1.8-2.4); Potassium 3.9 mmol/L (3.5-5.1)
[2018-08-02] MEDS: INSULIN ASPART 100 UNITS/ML 3 ML PEN SC SCH ×4 (08:30→20:48)
[2018-08-02] MEDS ORDERED: ALBUT/IPRATROP 3MG/0.5MG NEB 3 ML VIAL NEB STA (09:01)
[2018-08-02] MEDS: ALBUT/IPRATROP 3MG/0.5MG NEB 3 ML VIAL NEB PRN ×2 (09:14→17:27)
[2018-08-02] MEDS: ESCITALOPRAM OXALATE 10 MG TAB PO SCH (10:01)
[2018-08-02] MEDS: CLOPIDOGREL BISULFATE 75 MG TAB PO SCH (10:01)
[2018-08-02] MEDS: ATORVASTATIN 10 MG TAB PO SCH (10:01)
[2018-08-02] MEDS: INSULIN GLARGINE SOLOSTAR 100 UNITS/ML 3 ML PEN SC SCH ×2 (10:02→20:51)
[2018-08-02] MEDS: ERYTHROMYCIN OP OINT 1 GM PKT OPL SCH ×4 (10:02→21:02)
--- NOTE | 2018-08-02 13:57 | XRay Report ---
XR chest 1V portable CLINICAL HISTORY: 88 years-old Female presenting with follow up lung infiltrates. TECHNIQUE: Portable upright AP view of the chest was obtained. COMPARISON: 08/01/2018. FINDINGS: Left subclavian pacer with leads to the right atrium and right ventricular apex. Atherosclerosis of a ortic arch. Cardiac silhouette mildly enlarged. Pulmonary vessel prominence with bronchial wall thick ening. Perihilar added density. Mildly low lung volumes. No focal opacity. No large effusion or pneum othorax. Osseous structures normal. External leads project over the epigastrium degrading evaluation of the upper abdomen. IMPRESSION: 1. Cardiac megaly with volume overload/congestive change. Vague perihilar density raises concern for developing pulmonary edema. Findings are worsened from prior exam. Electronically signed by: Rajendra Aguilar M.D. 08/02/2018 1:56 PM
--- NOTE | 2018-08-02 17:31 | Hospitalist Progress Note ---
Date of Service August 02, 2018 Assessment & Plan (1) Respiratory failure with hypoxia: Etiologies include acute decompensated heart failure and/or aspiration pneumonia. She is clearly volume overloaded on exam with vascular congestion on chest x-ray. Lung auscultation is limited as the patient was not following commands to take deep breaths on several occasions. However, coarse rhonchi were heard at bases. -received 40 mg Lasix IV in the the ER on 08/02/18 and additional 20 mg Iv lasix on medical chavarria on 08/02/18 -CXR on 06/12/19 in COMPARISON: 08/01/2018. FINDINGS: Left subclavian pacer with leads to the right atrium and right ventricular apex. Atherosclerosis of aortic arch. Cardiac silhouette mildly enlarged. Pulmonary vessel prominence with bronchial wall thickening. Perihilar added density. Mildly low lung volumes. No focal opacity. No large effusion or pneumothorax. Osseous structures normal. External leads project over the epigastrium degrading evaluation of the upper abdomen. IMPRESSION: 1. Cardiac megaly with volume overload/congestive change. Vague perihilar density raises concern for developing pulmonary edema. Findings are worsened from prior exam. - give additional 40 mg IV Lasix on 08/02/18, consider 40 mg IV BID Lasix starting on 08/03/18 -BIPAP as needed, nebulizer treatments -continue Zosyn pending blood cultures and clinical improvement for possible aspiration pneumonia (2) Acute decompensated heart failure: management as above (3) Aspiration pneumonia: management as above (4) Diabetes: Continue glargine and NovoLog for insulin sliding scale with carb coverage while inpatient. HbA1c pending (5) Hypothyroidism: Continue Synthroid per home dose. (6) CAD (coronary artery disease): EKG reveals a v-paced rhythm has pacemaker troponin negative x 2 Denies chest pain Cont medical management with Lipitor 10mg and Plavix. (7) Depression: Cont home dose of Lexapro (8) Obesity: Obesity with BMI 37 PT/OT as tolerated (9) Pacemaker: (10) DVT prophylaxis: Heparin Full Code as discussed above. Dispo-PCU/telemetry Subjective Patient on nasal cannula. dinner at bedside she has requested breathing nebuilizer treatment mild wheezing on lung exam patient denies chets pain or abdominal pain or palpitations. no vomiting Physical Exam 2 Vital Signs (Past 24 Hours): Last Vital Signs Temp 36.6 C 08/02/18 15:15 Pulse 75 08/02/18 15:15 Resp 20 08/02/18 15:15 BP 164/70 H 08/02/18 15:15 Pulse Ox 96 08/02/18 15:15 Constitutional: WD/WN, vitals as above + obese Eyes: PERRL, conjunctivae normal, anicteric sclerae EOM intact bilaterally ENMT: external ear and nose normal, oropharynx normal Neck: normal visual inspection Respiratory: Auscultation: + wheezes (patient does not take very deep breaths. respiratory rate normal) Cardiovascular: RRR, no murmur, no edema Gastrointestinal (Abdomen): normal bowel sounds, soft, nontender, no hepatosplenomegaly Neurologic: PERRL, EOMI, accommodation nl, no face palsy, no dysarthria Psychiatric: A+Ox3, euthymic affect _ (1) Respiratory failure with hypoxia Chronicity: acute Qualified Code(s): J96.01 - Acute respiratory failure with hypoxia (2) Aspiration pneumonia Aspiration pneumonia type: unspecified Laterality: right Lung location: lower lobe of lung Qualified Code(s): J69.0 - Pneumonitis due to inhalation of food and vomit
[2018-08-02] MEDS ORDERED: FUROSEMIDE 40 MG in SYRINGE 0 ML IV ONE (17:32)
[2018-08-03] MEDS: PIPERACILLIN/TAZOBACTAM 4.5 GM in DEXTROSE 5% 100 ML IV SCH ×2 (00:21→09:17)
[2018-08-03] MEDS: LEVOTHYROXINE SODIUM 88 MCG TABLET PO SCH (05:11)
[2018-08-03] MEDS: HEPARIN SOD 5,000 UNIT/0.5 ML VIAL SQ SCH ×3 (05:11→21:11)
[2018-08-03 05:41] LABS: Basophils # (auto) 0.03 K/uL (0-0.2); Basophils % (auto) 0.2 %; Eosinophils # (auto) 0.17 K/uL (0-0.5); Eosinophils % (auto) 1.2 %; Hematocrit (blood only) 34.2 % (37-47); Hemoglobin 11.1 g/dL (12.0-16.0); Immature Granulocytes # (auto) 0.03 K/uL (0.00-0.02); Immature Granulocytes % (auto) 0.2 %; Lymphocytes # (auto) 1.33 K/uL (1.2-3.4); Lymphocytes % (auto) 9.6 %; Mean Corpuscular Hgb Conc 32.5 g/dL (32-36); Monocytes # (auto) 0.71 K/uL (0.11-0.59); Monocytes % (auto) 5.1 %; Neutrophils # (auto) 11.63 K/uL (1.4-6.5); Neutrophils % (auto) 83.7 %; Platelet Count 259 K/uL (130-400); RDW Coefficient of Variation 13.8 % (11.5-14.5); RDW Standard Deviation 44.1 fL (36.4-46.3); Red Blood Count 3.93 M/uL (4.2-5.4)
[2018-08-03 06:00] LABS: Estimated Average Glucose 140 mg/dl
[2018-08-03 06:11] LABS: Albumin Level 2.7 gm/dl (3.4-5.0); BUN Creatinine Ratio 16.5 (10-20); Calcium 8.7 mg/dl (8.5-10.1); Creatinine Clr Calc Pharmacy 21.7 ml/min; Est GFR (African American) 24.3; Potassium 3.8 mmol/L (3.5-5.1)
[2018-08-03 06:15] LABS: Albumin Globulin Ratio 0.6 (0.9-2); Bilirubin,Total 0.8 mg/dl (0.2-1); Globulin 4.5 gm/dl (2.5-4.0); Total Protein 7.2 gm/dl (6.4-8.2)
[2018-08-03] MEDS ORDERED: FUROSEMIDE 40 MG in SYRINGE 0 ML IV SCH (09:00)
[2018-08-03] MEDS: INSULIN GLARGINE SOLOSTAR 100 UNITS/ML 3 ML PEN SC SCH ×2 (09:11→21:10)
[2018-08-03] MEDS: INSULIN ASPART 100 UNITS/ML 3 ML PEN SC SCH ×4 (09:14→21:07)
[2018-08-03] MEDS: FUROSEMIDE 40 MG TAB PO SCH (09:15)
[2018-08-03] MEDS: ERYTHROMYCIN OP OINT 1 GM PKT OPL SCH ×4 (09:15→21:09)
[2018-08-03] MEDS: CLOPIDOGREL BISULFATE 75 MG TAB PO SCH (09:16)
[2018-08-03] MEDS: ATORVASTATIN 10 MG TAB PO SCH (09:16)
[2018-08-03] MEDS: ESCITALOPRAM OXALATE 10 MG TAB PO SCH (09:16)
--- NOTE | 2018-08-03 11:09 | Hospitalist Progress Note ---
Date of Service August 03, 2018 Assessment & Plan (1) Respiratory failure with hypoxia: Etiologies include acute decompensated heart failure and/or aspiration pneumonia. She is clearly volume overloaded on exam with vascular congestion on chest x-ray. Lung auscultation is limited as the patient was not following commands to take deep breaths on several occasions. However, coarse rhonchi were heard at bases. -received 40 mg Lasix IV in the the ER on 08/02/18 and additional 20 mg Iv lasix on medical chavarria on 08/02/18 -CXR on 06/12/19 in COMPARISON: 08/01/2018. FINDINGS: Left subclavian pacer with leads to the right atrium and right ventricular apex. Atherosclerosis of aortic arch. Cardiac silhouette mildly enlarged. Pulmonary vessel prominence with bronchial wall thickening. Perihilar added density. Mildly low lung volumes. No focal opacity. No large effusion or pneumothorax. Osseous structures normal. External leads project over the epigastrium degrading evaluation of the upper abdomen. IMPRESSION: 1. Cardiac megaly with volume overload/congestive change. Vague perihilar density raises concern for developing pulmonary edema. Findings are worsened from prior exam. - give additional 40 mg IV Lasix on 08/02/18 -Review of AM labs show acute kidney injury secondary to diuresis, BNP downtrending. will switch to oral Lasix 40 mg daily in the AM and try to transition off the BIPAP -continue nebulizer treatments -since admission, patient has been on Zosyn but blood cultures returned preliminarily as no growth to date on 08/03/18 and will transition to Levaquin (2) Acute decompensated heart failure: management as above (3) Aspiration pneumonia: management as above (4) Diabetes: Continue glargine and NovoLog for insulin sliding scale with carb coverage while inpatient. HbA1c 6.5 (5) Hypothyroidism: Continue Synthroid per home dose. (6) CAD (coronary artery disease): EKG reveals a v-paced rhythm has pacemaker troponin negative x 2 Denies chest pain Cont medical management with Lipitor 10mg and Plavix. (7) Depression: Cont home dose of Lexapro (8) Obesity: Obesity with BMI 37 PT/OT as tolerated (9) Pacemaker: (10) DVT prophylaxis: Heparin sub Full Code son is Jadiel [phone] who is in [place] Subjective Patient seen and examined on BIPAP Patient denies acute pain. She has tears in her eyes but she does not recall crying. Hospitalist asked her if she is uncomfortable with the BIPAP but she denies. no wheezing on exam patient denies chest pain or abdominal pain or palpitations Physical Exam 2 Vital Signs (Past 24 Hours): Last Vital Signs Temp 36.8 C 08/03/18 07:35 Pulse 64 08/03/18 07:35 Resp 16 08/03/18 07:35 BP 167/80 H 08/03/18 07:35 Pulse Ox 94 08/03/18 07:35 Constitutional: WD/WN, vitals as above + obese Eyes: PERRL, conjunctivae normal, anicteric sclerae EOM intact bilaterally ENMT: external ear and nose normal, oropharynx normal Neck: normal visual inspection Respiratory: normal respiratory effort (on BIPAP) Cardiovascular: RRR, no murmur, no edema Gastrointestinal (Abdomen): normal bowel sounds, soft, nontender, no hepatosplenomegaly Neurologic: PERRL, EOMI, accommodation nl, no face palsy, no dysarthria Psychiatric: A+Ox3, euthymic affect _ (1) Respiratory failure with hypoxia Chronicity: acute Qualified Code(s): J96.01 - Acute respiratory failure with hypoxia (2) Aspiration pneumonia Aspiration pneumonia type: unspecified Laterality: right Lung location: lower lobe of lung Qualified Code(s): J69.0 - Pneumonitis due to inhalation of food and vomit
[2018-08-03] MEDS ORDERED: levoFLOXacin 750 MG TAB PO ONE (11:12)
[2018-08-03] MEDS: DOXYCYCLINE HYCLATE 100 MG CAP PO SCH ×2 (12:49→21:13)
--- NOTE | 2018-08-03 14:55 | Cardiology Consultation ---
Date of Consultation August 03, 2018 Assessment & Plan (1) Respiratory failure with hypoxia: The patient was admitted with acute respiratory failure likely secondary to aspiration pneumonia and decompensated CHF. She has responded well to the use of intravenous diuretics and antibiotics. She has been change to oral Lasix and continues to do well. Would suggest that this be part of her usual outpatient regimen. (2) Acute decompensated heart failure: No prior history of decompensated CHF in her medical record. She has diuresed well and has improved clinically. As above, would use Lasix 40 mg daily as part of her outpatient medical regimen. 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 She had a generator change performed in September 2014. History of Present Illness Attending Physician: Skip Ji MD History of Present Illness Mrs. Burgos is an 88 year old female admitted on the with respiratory failure felt secondary to aspiration pneumonia and decompensated CHF. This consultation was ordered to assist in her cardiac management. Of note, the patient is well known to me from the outpatient setting. The patient was in her usual state of health until the day of presentation. She was found by her caretakers minimally responsive with vomitus across her chest. She was tachypneic with a low-grade fever. She is brought to the emergency room and placed on BiPAP. She was given intravenous diuretics and antibiotics and has improved over the last 48 hours. The patient has never experienced congestive heart failure previously. She does have a history of intermittent complete heart block and received a dual- chamber pacemaker in November of 2006. She had a generator change in September of 2014. She does follow in our outpatient pacemaker clinic. Currently, patient is resting comfortably in bed without complaints. She is anxious for hospital discharge. Her medications reviewed in detail. Past medical and surgical history 1. Diastolic CHF 2. Hypertension 3. Hypercholesterolemia 4. Intermittent complete heart block 5. DDD pacemaker-November 2006, September 2014 6. CVA-September 2014 7. Chronic renal failure 8. Diabetes mellitus 9. Hypothyroidism 10. Obesity 11. Depression 12. Crohn's disease 13. Secondary hyperparathyroidism 14. Chronic venous stasis 15. Facial trauma-June 2018 Social history Resides at the [facility] since September 2014 No tobacco or alcohol. Family history Noncontributory Review of systems A 10 point review of systems was undertaken and negative except for that described above. Allergies Allergy/AdvReac Type Severity Reaction Status Date / Time Sulfa (Sulfonamide Allergy Intermediate BLISTERS, Verified 08/01/18 17:51 Antibiotics) HIVES morphine Allergy Unknown pt unsure Unverified 08/01/18 17:51 Home Medications Home Medications Medication Instructions Recorded Confirmed Type acetaminophen [Acetaminophen Extra 500 mg PO Q4 PRN MDD 3g/24hr 07/04/18 History Strength] atorvastatin 10 mg PO DAILY 07/04/18 08/01/18 History clopidogrel 75 mg PO DAILY 07/04/18 08/01/18 History ergocalciferol (vitamin D2) 50,000 unit PO WK 07/04/18 08/01/18 History [Vitamin D2] escitalopram oxalate 10 mg PO DAILY 07/04/18 08/01/18 History furosemide 20 mg PO Q OTHER DAY 07/04/18 08/01/18 History levothyroxine 88 mcg PO DAILY 07/04/18 08/01/18 History insulin glargine [Lantus Solostar 35 unit SUBCUT QPM 08/01/18 08/01/18 History U-100 Insulin] loperamide [Imodium A-D] 2 mg PO Q3H PRN MDD 8 TABS 08/01/18 08/01/18 History magnesium hydroxide [Milk of 30 ml PO DAILY PRN 08/01/18 08/01/18 History Magnesia] nystatin 1 applic TOPICAL TID PRN 08/01/18 08/01/18 History Patient History Medical History CAD (coronary artery disease) (Chronic) Diabetes (Chronic) Hypothyroidism (Chronic) Obesity (Chronic) Skin cancer (Resolved) Pacemaker (Chronic) Altered mental status (Acute) Bilateral knee pain (Acute) Contusion of multiple sites (Acute) Diabetic peripheral neuropathy associated with type 2 diabetes mellitus Facial contusion (Acute) Fall (Acute) Foot deformity Head trauma (Acute) Hematoma of arm (Acute) Loss of sensation Rhabdomyolysis (Acute) Right hip pain (Acute) Right sided weakness (Acute) Sinusitis (Acute) Skin tear of forearm without complication (Acute) Surgical History Hx of appendectomy (Acute) Family History Other Family history non-contributory Social History marital status: / Current Living Situation: Care Home Current Living Situation Comment: [facility] Other Information That Helps Us Care for You: No Feels Safe at Home: Yes Safety Concerns: Feels Safe At This Time Smoking Status: Never smoker Do You Dip or Chew Tobacco: No Second Hand Exposure: No Tobacco Cessation Education Requested by Patient: No Hx Alcohol Use: No Hx Substance Use: No Beliefs That Will Affect Care: None Communication Ability: Effective Physical Exam 2 Vital Signs (Past 24 Hours): Last Vital Signs Temp 36.6 C 08/03/18 12:37 Pulse 60 08/03/18 12:37 Resp 18 08/03/18 12:37 BP 150/68 H 08/03/18 12:37 Pulse Ox 94 08/03/18 12:37 Physical Exam: In general is obese white female lying supine in bed without complaints. HEENT exam is negative. Neck is supple with full carotid upstrokes. No carotid bruits. Jugular venous pressure is difficult to assess. Cardiovascular exam reveals a regular rhythm with a normal S1 and S2. A 1/6 basal systolic ejection regimen noted. Lungs notes scattered rhonchi but no rales. Abdomen is obese without bruits. Extremities reveal intact radial artery pulses bilaterally. There is no peripheral edema. Results & Data Laboratory Results CBC notes hemoglobin 11.1, crit 34.2, white count 13.9, platelet count 202177. Electrolytes note a sodium of 136, potassium 3.8, chloride 101, bicarb 20, BUN 34, creatinine 2.07, glucose 103. Two troponin I levels were undetectable less than 0.015. BNP on presentation was 2574 with a follow-up value of 1360. INR is 1.1. Diagnostic Findings EKG notes dual-chamber pacing. Chest x-ray notes cardiomegaly and mild congestive changes. _ (1) Respiratory failure with hypoxia Chronicity: acute Qualified Code(s): J96.01 - Acute respiratory failure with hypoxia
[2018-08-04 05:52] LABS: Hematocrit (blood only) 33.4 % (37-47); Hemoglobin 10.9 g/dL (12.0-16.0); Mean Corpuscular Hgb Conc 32.6 g/dL (32-36); Mean Corpuscular Volume 86.5 fL (80-100); Mean Platelet Volume 9.9 fL (7.4-10.4); Platelet Count 288 K/uL (130-400); RDW Coefficient of Variation 13.8 % (11.5-14.5); RDW Standard Deviation 43.7 fL (36.4-46.3); Red Blood Count 3.86 M/uL (4.2-5.4); White Blood Count 12.96 K/uL (4.8-10.8)
[2018-08-04] MEDS: LEVOTHYROXINE SODIUM 88 MCG TABLET PO SCH (06:05)
[2018-08-04] MEDS: HEPARIN SOD 5,000 UNIT/0.5 ML VIAL SQ SCH ×3 (06:05→21:50)
[2018-08-04 06:27] LABS: Creatinine Clr Calc Pharmacy 20.6 ml/min; Est GFR (African American) 23.1; Est GFR (Non-African American) 19.9
[2018-08-04] MEDS: CLOPIDOGREL BISULFATE 75 MG TAB PO SCH (08:29)
[2018-08-04] MEDS: ATORVASTATIN 10 MG TAB PO SCH (08:29)
[2018-08-04] MEDS: ERYTHROMYCIN OP OINT 1 GM PKT OPL SCH ×4 (08:29→21:48)
[2018-08-04] MEDS: ESCITALOPRAM OXALATE 10 MG TAB PO SCH (08:29)
[2018-08-04] MEDS: DOXYCYCLINE HYCLATE 100 MG CAP PO SCH ×2 (08:29→21:49)
[2018-08-04] MEDS: INSULIN GLARGINE SOLOSTAR 100 UNITS/ML 3 ML PEN SC SCH ×2 (08:29→21:48)
[2018-08-04] MEDS: FUROSEMIDE 40 MG TAB PO SCH (08:29)
[2018-08-04] MEDS: INSULIN ASPART 100 UNITS/ML 3 ML PEN SC SCH ×4 (08:30→21:47)
[2018-08-04] MEDS ORDERED: ALBUT/IPRATROP 3MG/0.5MG NEB 3 ML VIAL NEB STA (10:10)
[2018-08-04] MEDS ORDERED: levoFLOXacin 750 MG TAB PO SCH (11:00)
--- NOTE | 2018-08-04 13:02 | Cardiology Progress Note ---
Date of Service August 04, 2018 Assessment & Plan (1) Respiratory failure with hypoxia: Likely secondary to a combination of aspiration pneumonia and decompensated CHF. She has improved dramatically over her status at time of presentation. (2) Acute decompensated heart failure: She is diuresing well on oral for erosive might at this time. Hopefully, we can remove her supplemental oxygen prior to hospital discharge. 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 She had a generator change performed in September 2014. Her device continues to function properly. Subjective The patient is resting comfortably in bed without complaints of chest pain or dyspnea. Still notes a productive cough. Physical Exam 2 Vital Signs (Past 24 Hours): Last Vital Signs Temp 37.2 C 08/04/18 12:11 Pulse 77 08/04/18 12:11 Resp 16 08/04/18 12:11 BP 134/56 L 08/04/18 12:11 Pulse Ox 90 08/04/18 12:11 Physical Exam: In general is obese white female lying supine in bed without complaints. HEENT exam is negative. Neck is supple with full carotid upstrokes. No carotid bruits. Jugular venous pressure is difficult to assess. Cardiovascular exam reveals a regular rhythm with a normal S1 and S2. A 1/6 basal systolic ejection regimen noted. Lungs notes scattered rhonchi but no rales. Chest reveals a palpable pacemaker in the left subclavicular region. Abdomen is obese without bruits. Extremities reveal intact radial artery pulses bilaterally. There is no peripheral edema. Results & Data Laboratory Results Laboratory Results - last 24 hr 08/03/18 08/03/18 08/04/18 16:19 20:28 05:37 WBC 12.96 H RBC 3.86 L Hgb 10.9 L Hct 33.4 L MCV 86.5 MCH 28.2 MCHC 32.6 RDW Std Deviation 43.7 RDW Coeff of Ayden 13.8 Plt Count 288 MPV 9.9 Creatinine Est Cr Clr Drug Dosing Est GFR ( Amer) Est GFR (Non-Af Amer) POC Glucose 87 130 H 08/04/18 08/04/18 05:37 07:40 WBC RBC Hgb Hct MCV MCH MCHC RDW Std Deviation RDW Coeff of Ayden Plt Count MPV Creatinine 2.16 H Est Cr Clr Drug Dosing 20.6 Est GFR ( Amer) 23.1 Est GFR (Non-Af Amer) 19.9 POC Glucose 116 H Diagnostic Findings residential monitor notes appropriate pacing. _ (1) Respiratory failure with hypoxia Chronicity: acute Qualified Code(s): J96.01 - Acute respiratory failure with hypoxia
--- NOTE | 2018-08-04 19:22 | Hospitalist Progress Note ---
Date of Service August 04, 2018 Assessment & Plan (1) Respiratory failure with hypoxia: Etiologies include acute decompensated heart failure and/or aspiration pneumonia. She is clearly volume overloaded on exam with vascular congestion on chest x-ray. Lung auscultation is limited as the patient was not following commands to take deep breaths on several occasions. However, coarse rhonchi were heard at bases. -received 40 mg Lasix IV in the the ER on 08/02/18 and additional 20 mg Iv lasix on medical chavarria on 08/02/18 -CXR on 06/12/19 in COMPARISON: 08/01/2018. FINDINGS: Left subclavian pacer with leads to the right atrium and right ventricular apex. Atherosclerosis of aortic arch. Cardiac silhouette mildly enlarged. Pulmonary vessel prominence with bronchial wall thickening. Perihilar added density. Mildly low lung volumes. No focal opacity. No large effusion or pneumothorax. Osseous structures normal. External leads project over the epigastrium degrading evaluation of the upper abdomen. IMPRESSION: 1. Cardiac megaly with volume overload/congestive change. Vague perihilar density raises concern for developing pulmonary edema. Findings are worsened from prior exam. - give additional 40 mg IV Lasix on 08/02/18 -ESEQUIEL from diuresis with creatinine stabilizing -continue Lasix as home dose oral 40 mg daily -continue nebulizer treatments as needed -since admission from 08/01/18, patient had been on Zosyn but blood cultures returned preliminarily as no growth to date on 08/03/18 and transitioned to oral Levaquin, continue oral Levaquin (2) Acute decompensated heart failure: management as above (3) Aspiration pneumonia: management as above (4) Diabetes: Continue glargine and NovoLog for insulin sliding scale with carb coverage while inpatient. HbA1c 6.5 (5) Hypothyroidism: Continue Synthroid per home dose. (6) CAD (coronary artery disease): EKG reveals a v-paced rhythm has pacemaker troponin negative x 2 Denies chest pain Cont medical management with Lipitor 10mg and Plavix. (7) Depression: Cont home dose of Lexapro (8) Obesity: Obesity with BMI 37 PT/OT as tolerated renal case manager to make referral to [facility] for physical rehabilitation (9) Pacemaker: (10) DVT prophylaxis: Heparin sub Full Code son is Jadiel [phone] who is in [place] renal case manager to make referral to [facility] for physical rehabilitation Subjective Patient had expiratory wheeze this AM and given nebulizer treatment while on nasal cannula. as the day continued, were able to titrate down the nasal cannula to room air Patient denies chest pain. denies vomiting. denies abdominal pain renal case manager to make referral to [facility] for physical rehabilitation Physical Exam 2 Vital Signs (Past 24 Hours): Last Vital Signs Temp 37.2 C 08/04/18 15:00 Pulse 72 08/04/18 16:00 Resp 18 08/04/18 15:00 BP 148/73 H 08/04/18 15:00 Pulse Ox 90 08/04/18 15:00 Constitutional: WD/WN, vitals as above + obese Eyes: PERRL, conjunctivae normal, anicteric sclerae EOM intact bilaterally ENMT: external ear and nose normal, oropharynx normal Neck: normal visual inspection Respiratory: normal respiratory effort, lungs clear to auscultation Cardiovascular: RRR, no murmur, no edema Gastrointestinal (Abdomen): normal bowel sounds, soft, nontender, no hepatosplenomegaly Neurologic: PERRL, EOMI, accommodation nl, no face palsy, no dysarthria Psychiatric: A+Ox3, euthymic affect _ (1) Respiratory failure with hypoxia Chronicity: acute Qualified Code(s): J96.01 - Acute respiratory failure with hypoxia (2) Aspiration pneumonia Aspiration pneumonia type: unspecified Laterality: right Lung location: lower lobe of lung Qualified Code(s): J69.0 - Pneumonitis due to inhalation of food and vomit
[2018-08-05] MEDS: HEPARIN SOD 5,000 UNIT/0.5 ML VIAL SQ SCH ×2 (06:16→12:29)
[2018-08-05] MEDS: LEVOTHYROXINE SODIUM 88 MCG TABLET PO SCH (06:16)
[2018-08-05] MEDS: ESCITALOPRAM OXALATE 10 MG TAB PO SCH (09:14)
[2018-08-05] MEDS: ATORVASTATIN 10 MG TAB PO SCH (09:14)
[2018-08-05] MEDS: FUROSEMIDE 40 MG TAB PO SCH (09:14)
[2018-08-05] MEDS: DOXYCYCLINE HYCLATE 100 MG CAP PO SCH (09:14)
[2018-08-05] MEDS: CLOPIDOGREL BISULFATE 75 MG TAB PO SCH (09:14)
[2018-08-05] MEDS: INSULIN ASPART 100 UNITS/ML 3 ML PEN SC SCH ×2 (09:15→12:28)
[2018-08-05] MEDS: ERYTHROMYCIN OP OINT 1 GM PKT OPL SCH ×2 (09:15→13:58)
[2018-08-05] MEDS: INSULIN GLARGINE SOLOSTAR 100 UNITS/ML 3 ML PEN SC SCH (09:15)
--- NOTE | 2018-08-05 12:30 | Hospitalist Progress Note ---
Date of Service August 05, 2018 Assessment & Plan (1) Respiratory failure with hypoxia: Etiologies include acute decompensated heart failure and/or aspiration pneumonia. She is clearly volume overloaded on exam with vascular congestion on chest x-ray. Lung auscultation is limited as the patient was not following commands to take deep breaths on several occasions. However, coarse rhonchi were heard at bases. -received 40 mg Lasix IV in the the ER on 08/02/18 and additional 20 mg Iv lasix on medical chavarria on 08/02/18 -CXR on 06/12/19 in COMPARISON: 08/01/2018. FINDINGS: Left subclavian pacer with leads to the right atrium and right ventricular apex. Atherosclerosis of aortic arch. Cardiac silhouette mildly enlarged. Pulmonary vessel prominence with bronchial wall thickening. Perihilar added density. Mildly low lung volumes. No focal opacity. No large effusion or pneumothorax. Osseous structures normal. External leads project over the epigastrium degrading evaluation of the upper abdomen. IMPRESSION: 1. Cardiac megaly with volume overload/congestive change. Vague perihilar density raises concern for developing pulmonary edema. Findings are worsened from prior exam. - give additional 40 mg IV Lasix on 08/02/18 -ESEQUIEL from diuresis with creatinine stabilizing -continue Lasix as home dose oral 40 mg daily -continue nebulizer treatments as needed -since admission from 08/01/18, patient had been on Zosyn but blood cultures returned preliminarily as no growth to date on 08/03/18 and transitioned to oral doxycycline hypoxia has resolved Continue Lasix as 40 mg daily. Continue doxycycline 100 mg BID for 3 more days Patient should be seen by a primary care doctor in 1 week and have follow up metabolic panel labs and consider follow up Chest X ray in 1 to 2 weeks (2) Acute decompensated heart failure: Possible acute diastolic CHF Possible acute systolic CHF CHF discharge instructions Call 911 and go to the Emergency Room if: * You have tightness or pain in your chest that does not go away with rest or Nitroglycerin * You are very short of breath even with rest Call your doctor if any of the following symptoms or problems start or get worse: * Shortness of breath or difficulty breathing * Wake up at night short of breath * Chest pain * Cough * Swelling of your hands, fee, or legs * More fatigued or tired with your normal activity * Palpitations - sudden fast heart beats WEIGHT * Weigh yourself every morning after using the bathroom. * Use the same scale. * Wear the same amount of clothing. * Write your weight down on your chart. * Call your doctor if you gain more than 2-3 pounds in 1-2 days. MEDICATIONS * Use this discharge instruction sheet for instructions. * Take your medications at the time your doctor ordered. * Do not skip a dose of your medicines. * If you miss a dose of medicine, take as soon as possible, but DO NOT DOUBLE A DOSE. * Read your medicine information when you get home. * Know all of the side effects of your medicine. * Call your doctor's office if you have any side effects. * Be sure all of your doctors know what medicine and herbs you take (including cold, flu, and herbal medicine). * Pain Medicine: If you do not get relief from your pain, please call your doctor for help. Take the following with you to your follow-up doctor appointments: * Weight Chart * Medication List * List of questions Do not drink excessive alcohol, beer or wine. (3) Aspiration pneumonia: management as above (4) Diabetes: HbA1c 6.5 continue home dose Lantus (5) Hypothyroidism: Continue Synthroid per home dose. (6) CAD (coronary artery disease): EKG reveals a v-paced rhythm has pacemaker troponin negative x 2 Denies chest pain Cont medical management with Lipitor 10mg and Plavix. (7) Depression: Cont home dose of Lexapro (8) Obesity: Obesity with BMI 37 PT/OT as tolerated Discharge To [facility] rehabilitation at [facility]) (9) Pacemaker: (10) DVT prophylaxis: Heparin sub while inpatient Full Code son is Jadiel [phone] who is in [place] Discharge Diagnosis Acute respiratory failure with hypoxia, Acute decompensated heart failure( Possible acute diastolic CHF; Possible acute systolic CHF), Obesity (BMI 30 to 39.9), Pneumonia, Type 2 diabetes mellitus with complications, halfway current use of insulin Discharge Instructions To physical rehabilitation at [facility] ([facility]) Continue Lasix as 40 mg daily. Continue doxycycline 100 mg BID for 3 more days Patient should be seen by a primary care doctor in 1 week and have follow up metabolic panel labs and consider follow up Chest X ray in 1 to 2 weeks CHF discharge instructions as listed Subjective Patient seen and examined on room air denies shortness of breath Patient denies chest pain. denies vomiting. denies abdominal pain Patient understands the discharge plans to [facility] for physical rehabilitation Physical Exam 2 Vital Signs (Past 24 Hours): Last Vital Signs Temp 36.5 C 08/05/18 11:30 Pulse 63 08/05/18 11:30 Resp 20 08/05/18 11:30 BP 157/75 H 08/05/18 11:30 Pulse Ox 97 08/05/18 11:30 Constitutional: WD/WN, vitals as above + obese Eyes: PERRL, conjunctivae normal, anicteric sclerae EOM intact bilaterally ENMT: external ear and nose normal, oropharynx normal Neck: normal visual inspection Respiratory: normal respiratory effort, lungs clear to auscultation Cardiovascular: RRR, no murmur, no edema Gastrointestinal (Abdomen): normal bowel sounds, soft, nontender, no hepatosplenomegaly Neurologic: PERRL, EOMI, accommodation nl, no face palsy, no dysarthria Psychiatric: A+Ox3, euthymic affect _ (1) Respiratory failure with hypoxia Chronicity: acute Qualified Code(s): J96.01 - Acute respiratory failure with hypoxia (2) Aspiration pneumonia Aspiration pneumonia type: unspecified Laterality: right Lung location: lower lobe of lung Qualified Code(s): J69.0 - Pneumonitis due to inhalation of food and vomit
--- NOTE | 2018-08-05 12:37 | Discharge Summary ---
Date of Service August 05, 2018 Admission HPI Per Admitting Provider 88-year-old female who lives at [facility] was found by staff to be tachypneic with vomit on her shirt. Along with her short of breath her temp was 99 F and she was given a DuoNeb prior to arrival. The patient reports she does not normally wear home oxygen. She states that she has been short of breath for the last week. She denies any coughing, fevers, chills. After appearing volume overloaded on exam, she was asked if she felt swollen or if she had gained weight, and she said yes. She reported possible intake of sodium rich foods. She does not appear to track her weight daily. She otherwise denied any coughing, chest pain, abdominal pain, or recent difficulties tolerating p.o. She states she did not vomit today. She states she did not aspirate. On arrival to the ER respiratory rate was 39 breaths/min and she was oxygenating 94% on room air. Despite tachypnea that persisted she maintained good oxygen saturation on minimal supplemental oxygen. She was placed on BiPAP to assist with work of breathing and was given Lasix 40 mg IV, which improved her symptoms by the time she arrived on the floor. At this point her respiratory rate was still in the mid 20s and coarse rhonchi could be heard on lung exam, so she was given an additional 20 mill grams of Lasix IV. Initial output in the [place] of the first dose of Lasix was approximately 600 cc. Admission Exam Per Admitting Provider Temp 37.5 C 08/01/18 16:36 Pulse 69 08/01/18 17:30 Resp 40 H 08/01/18 17:30 BP 158/47 H 08/01/18 17:00 Pulse Ox 97 08/01/18 17:30 CONSTITUTIONAL: obese, tachypneic on BIPAP, vitals as above, generally ill- appearing EYES: PERRL, external purulent eye drainage on left eye ENT: MMM NECK: trachea midline RESPIRATORY: clear to auscultation bilaterally, no crackles, rales or wheezes, tachypneic and very poor effort. CARDIOVASCULAR: regular rate and rhythm, S1 and 2 heard without murmurs, gallops or rubs, no JVD, 2+ pitting edema in bilateral lower extremities with evidence of erythroderma. GASTROINTESTINAL: normal bowel sounds, soft, nontender, nondistended, no guarding MUSCULOSKELETAL: head is normocephalic and atraumatic, generalized weakness. SKIN: warm and dry NEUROLOGIC: PERRL, no facial palsy, no dysarthria. Oriented to person and place, however, this is even hard to get from her. She is somnolent on the BIPAP. Principal Diagnosis Acute respiratory failure with hypoxia, Acute decompensated heart failure( Possible acute diastolic CHF; Possible acute systolic CHF), Obesity (BMI 30 to 39.9), Pneumonia, Type 2 diabetes mellitus with complications, skilled nursing current use of insulin Discharge Exam Constitutional WD/WN, vitals as above + obese Eyes PERRL, conjunctivae normal, anicteric sclerae EOM intact bilaterally ENMT external ear and nose normal, oropharynx normal Neck normal visual inspection Respiratory normal respiratory effort, lungs clear to auscultation Cardiovascular RRR, no murmur, no edema Gastrointestinal (Abdomen) normal bowel sounds, soft, nontender, no hepatosplenomegaly Neurologic PERRL, EOMI, accommodation nl, no face palsy, no dysarthria Psychiatric A+Ox3, euthymic affect Discharge Data Allergies Allergy/AdvReac Type Severity Reaction Status Date / Time Sulfa (Sulfonamide Allergy Intermediate BLISTERS, Verified 08/01/18 17:51 Antibiotics) HIVES morphine Allergy Unknown pt unsure Unverified 08/01/18 17:51 Consultations 08/01/18 20:50 Consult Case Management - Discharge Planning Routine 08/01/18 23:17 Consult Cardiology Routine 08/05/18 06:12 Consult Nutrition Routine Hospital Course (1) Respiratory failure with hypoxia: Etiologies include acute decompensated heart failure and/or aspiration pneumonia. She is clearly volume overloaded on exam with vascular congestion on chest x-ray. Lung auscultation is limited as the patient was not following commands to take deep breaths on several occasions. However, coarse rhonchi were heard at bases. -received 40 mg Lasix IV in the the ER on 08/02/18 and additional 20 mg Iv lasix on medical chavarria on 08/02/18 -CXR on 06/12/19 in COMPARISON: 08/01/2018. FINDINGS: Left subclavian pacer with leads to the right atrium and right ventricular apex. Atherosclerosis of aortic arch. Cardiac silhouette mildly enlarged. Pulmonary vessel prominence with bronchial wall thickening. Perihilar added density. Mildly low lung volumes. No focal opacity. No large effusion or pneumothorax. Osseous structures normal. External leads project over the epigastrium degrading evaluation of the upper abdomen. IMPRESSION: 1. Cardiac megaly with volume overload/congestive change. Vague perihilar density raises concern for developing pulmonary edema. Findings are worsened from prior exam. - give additional 40 mg IV Lasix on 08/02/18 -ESEQUIEL from diuresis with creatinine stabilizing -continue Lasix as home dose oral 40 mg daily -continue nebulizer treatments as needed -since admission from 08/01/18, patient had been on Zosyn but blood cultures returned preliminarily as no growth to date on 08/03/18 and transitioned to oral doxycycline hypoxia has resolved Continue Lasix as 40 mg daily. Continue doxycycline 100 mg BID for 3 more days Patient should be seen by a primary care doctor in 1 week and have follow up metabolic panel labs and consider follow up Chest X ray in 1 to 2 weeks (2) Acute decompensated heart failure: Possible acute diastolic CHF Possible acute systolic CHF CHF discharge instructions Call 911 and go to the Emergency Room if: * You have tightness or pain in your chest that does not go away with rest or Nitroglycerin * You are very short of breath even with rest Call your doctor if any of the following symptoms or problems start or get worse: * Shortness of breath or difficulty breathing * Wake up at night short of breath * Chest pain * Cough * Swelling of your hands, fee, or legs * More fatigued or tired with your normal activity * Palpitations - sudden fast heart beats WEIGHT * Weigh yourself every morning after using the bathroom. * Use the same scale. * Wear the same amount of clothing. * Write your weight down on your chart. * Call your doctor if you gain more than 2-3 pounds in 1-2 days. MEDICATIONS * Use this discharge instruction sheet for instructions. * Take your medications at the time your doctor ordered. * Do not skip a dose of your medicines. * If you miss a dose of medicine, take as soon as possible, but DO NOT DOUBLE A DOSE. * Read your medicine information when you get home. * Know all of the side effects of your medicine. * Call your doctor's office if you have any side effects. * Be sure all of your doctors know what medicine and herbs you take (including cold, flu, and herbal medicine). * Pain Medicine: If you do not get relief from your pain, please call your doctor for help. Take the following with you to your follow-up doctor appointments: * Weight Chart * Medication List * List of questions Do not drink excessive alcohol, beer or wine. (3) Aspiration pneumonia: management as above (4) Diabetes: HbA1c 6.5 continue home dose Lantus (5) Hypothyroidism: Continue Synthroid per home dose. (6) CAD (coronary artery disease): EKG reveals a v-paced rhythm has pacemaker troponin negative x 2 Denies chest pain Cont medical management with Lipitor 10mg and Plavix. (7) Depression: Cont home dose of Lexapro (8) Obesity: Obesity with BMI 37 PT/OT as tolerated Discharge To physical rehabilitation at [facility] ([facility]) (9) Pacemaker: (10) DVT prophylaxis: Heparin sub while inpatient Full Code son is Jadiel [phone] who is in [place] Discharge Diagnosis Acute respiratory failure with hypoxia, Acute decompensated heart failure( Possible acute diastolic CHF; Possible acute systolic CHF), Obesity (BMI 30 to 39.9), Pneumonia, Type 2 diabetes mellitus with complications, moth exterminator current use of insulin Discharge Instructions To physical rehabilitation at [facility]) Continue Lasix as 40 mg daily. Continue doxycycline 100 mg BID for 3 more days Patient should be seen by a primary care doctor in 1 week and have follow up metabolic panel labs and consider follow up Chest X ray in 1 to 2 weeks CHF discharge instructions as listed Total Time Total Time Spent Total Time Spent (In Minutes): 40 minutes Total Time Includes: Examination of the Patient, Discharge Planning and Medication Reconciliation Discharge Plan Discharge Items Patient Disposition: Transfer Inpatient Rehab Fac Reason For Visit: ACUTE RESPIRATORY FAILURE Discharge Diagnosis: Acute respiratory failure with hypoxia, Acute decompensated heart failure(Possible acute diastolic CHF; Possible acute systolic CHF), Obesity (BMI 30 to 39.9), Pneumonia, Type 2 diabetes mellitus with complications, moth exterminator current use of insulin Condition: Good Discharge Goals: Improve disease control Activity: Resume your previous activity Non-emergency contact: Primary Care Provider Call non-emergency contact if: you have any medication questions Diet: Regular Addtl Provider Instructions: Discharge Instructions To physical rehabilitation at [facility] ([facility]) Continue Lasix as 40 mg daily. Continue doxycycline 100 mg BID for 3 more days Patient should be seen by a primary care doctor in 1 week and have follow up metabolic panel labs and consider follow up Chest X ray in 1 to 2 weeks CHF discharge instructions Call 911 and go to the Emergency Room if: * You have tightness or pain in your chest that does not go away with rest or Nitroglycerin * You are very short of breath even with rest Call your doctor if any of the following symptoms or problems start or get worse: * Shortness of breath or difficulty breathing * Wake up at night short of breath * Chest pain * Cough * Swelling of your hands, fee, or legs * More fatigued or tired with your normal activity * Palpitations - sudden fast heart beats WEIGHT * Weigh yourself every morning after using the bathroom. * Use the same scale. * Wear the same amount of clothing. * Write your weight down on your chart. * Call your doctor if you gain more than 2-3 pounds in 1-2 days. MEDICATIONS * Use this discharge instruction sheet for instructions. * Take your medications at the time your doctor ordered. * Do not skip a dose of your medicines. * If you miss a dose of medicine, take as soon as possible, but DO NOT DOUBLE A DOSE. * Read your medicine information when you get home. * Know all of the side effects of your medicine. * Call your doctor's office if you have any side effects. * Be sure all of your doctors know what medicine and herbs you take (including cold, flu, and herbal medicine). * Pain Medicine: If you do not get relief from your pain, please call your doctor for help. Take the following with you to your follow-up doctor appointments: * Weight Chart * Medication List * List of questions Do not drink excessive alcohol, beer or wine. Prescriptions: New furosemide 40 mg Tablet 40 mg PO QAM 30 Days Qty: 30 RF: 0 atorvastatin 10 mg Tablet 10 mg PO DAILY 30 Days Qty: 30 RF: 0 clopidogrel 75 mg Tablet 75 mg PO DAILY 30 Days Qty: 30 RF: 0 levothyroxine [Synthroid] 88 mcg Tablet 88 mcg PO DAILYBB 30 Days Qty: 30 RF: 0 escitalopram oxalate 10 mg Tablet 10 mg PO DAILY 30 Days Qty: 30 RF: 0 doxycycline hyclate 100 mg Capsule 100 mg PO BID 3 Days Qty: 6 RF: 0 Continue ergocalciferol (vitamin D2) [Vitamin D2] 50,000 unit Capsule 50,000 unit PO WK RF: 0 insulin glargine [Lantus Solostar U-100 Insulin] 100 unit/mL (3 mL) Insulin Pen 35 unit SUBCUT QPM RF: 0 loperamide [Imodium A-D] 2 mg Tablet 2 mg PO Q3H MDD 8 TABS PRN (Reason: Diarrhea) RF: 0 magnesium hydroxide [Milk of Magnesia] 400 mg/5 mL Suspension 30 ml PO DAILY PRN (Reason: Constipation) RF: 0 Discontinued atorvastatin 10 mg Tablet 10 mg PO DAILY RF: 0 clopidogrel 75 mg Tablet 75 mg PO DAILY RF: 0 furosemide 20 mg Tablet 20 mg PO Q OTHER DAY RF: 0 escitalopram oxalate 10 mg Tablet 10 mg PO DAILY RF: 0 levothyroxine 88 mcg Capsule 88 mcg PO DAILY RF: 0 acetaminophen [Acetaminophen Extra Strength] 500 mg Tablet 500 mg PO Q4 MDD 3g/24hr PRN (Reason: Fever Or Pain) RF: 0 nystatin 100,000 unit/gram Powder 1 applic TOPICAL TID PRN (Reason: Rash) RF: 0 Stand-Alone Forms: [facility] Skilled Items Patient informed of condition?: Yes DNR: No Discharge Level of Care: Acute rehab Communicable Disease: No Discharge Prognosis: Stable Admission Data Admit Date/Time: 08/01/18 19:28 Attending Provider: Skip Ji Admit Provider: Seble Maya Primary Care Provider: STATE NIKOLAI CULLEN Other Providers: Nagi Sanchez ; Skip Ji Service: Telemetry
--- NOTE | 2018-08-05 14:57 | Cardiology Progress Note ---
Date of Service August 05, 2018 Assessment & Plan (1) Respiratory failure with hypoxia: Likely had a component of aspiration pneumonia and decompensated CHF at time of presentation. Would discharge on a daily dose of furosemide. (2) Acute decompensated heart failure: She has diuresed well. As above, would discharge on a daily dose of furosemide. 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 She had a generator change performed in September 2014. Her device continues to function properly. Subjective The patient is resting comfortably in bed without complaints of chest pain or dyspnea. She is anxious for hospital discharge. Physical Exam 2 Vital Signs (Past 24 Hours): Last Vital Signs Temp 36.5 C 08/05/18 14:22 Pulse 65 08/05/18 14:22 Resp 20 08/05/18 14:22 BP 157/75 H 08/05/18 14:22 Pulse Ox 97 08/05/18 14:22 Physical Exam: In general is obese white female lying supine in bed without complaints. HEENT exam is negative. Neck is supple with full carotid upstrokes. No carotid bruits. Jugular venous pressure is difficult to assess. Cardiovascular exam reveals a regular rhythm with a normal S1 and S2. A 1/6 basal systolic ejection regimen noted. Lungs are clear without rales, rhonchi or wheezes. Chest reveals a palpable pacemaker in the left subclavicular region. Abdomen is obese without bruits. Extremities reveal intact radial artery pulses bilaterally. There is no peripheral edema. Results & Data Laboratory Results Laboratory Results - last 24 hr 08/04/18 08/04/18 08/05/18 16:20 20:41 07:28 POC Glucose 162 H 128 H 100 H 08/05/18 11:14 POC Glucose 140 H Diagnostic Findings phototypesetting equipment monitor notes appropriate pacing. _ (1) Respiratory failure with hypoxia Chronicity: acute Qualified Code(s): J96.01 - Acute respiratory failure with hypoxia
[2018-08-07] MEDS ORDERED: ERGOCALCIFEROL 50,000 UNITS CAP PO SCH (09:00)
== END 2018-08-05 16:17 | DRG 291 ==
LOC: ED 16:24 → SUATTDRO 19:28 → 2S 19:28

== ENCOUNTER 2019-11-10 11:22 | Inpatient (IN) ==
--- NOTE | 2019-11-10 12:03 | Emergency Department Note ---
History of Present Illness General Chief complaint: Shortness of Breath/Dyspnea Time Seen by Provider: 11/10/19 11:24 Source: patient, EMS and other ([place] records) Mode of arrival: EMS Limitations: altered mental status and clinical acuity History of Present Illness Provider complaint: Shortness of breath Onset (ago): day(s) 1 Associated symptoms: + cough, + fever/chills and + shortness of breath This is an 89-year-old female presenting from a local residential, [facility], with shortness of breath and hypoxia. Of note there have been several positive coronavirus cases at [facility] both of staff and of residents. Patient was initially 70% on room air on EMS arrival. Patient was placed on oxygen in route. On arrival here patient was tachypneic with increased work of breathing and was 80% on room air, placed on additional nasal cannula. Patient denies chest pain, abdominal pain. Admits to cough and shortness of breath. Denies vomiting or diarrhea. Patient minimally able to answer questions. HPI limited by patient's altered mental status and work of breathing. No additional history provided by the patient. Pt seen during a time of high acuity and national emergency pandemic while wearing PPE. [place] paperwork reviewed and does not include a POLST form. Of note, there are known positive cases of COVID 19 at [facility]. Home Medications Home Medications Medication Instructions Recorded Confirmed Type ergocalciferol (vitamin D2) 50,000 unit PO WK 07/04/18 11/10/19 History [Vitamin D2] Lantus Solostar U-100 Insulin 38 unit SUBCUT HS 08/01/18 11/10/19 History acetaminophen 650 mg PO Q4H PRN 11/10/19 11/10/19 History atorvastatin 10 mg PO QPM 11/10/19 11/10/19 History clopidogrel 75 mg PO QAM 11/10/19 11/10/19 History docusate sodium [Colace] 100 mg PO BID 11/10/19 11/10/19 History escitalopram oxalate [Lexapro] 10 mg PO QAM 11/10/19 11/10/19 History furosemide [Lasix] 20 mg PO 3XWK 11/10/19 11/10/19 History levothyroxine 88 mcg PO QAM 11/10/19 11/10/19 History naproxen sodium 220 mg PO Q6H PRN 11/10/19 11/10/19 History sennosides [senna] 8.6 mg PO UD PRN 11/10/19 11/10/19 History Allergies Allergy/AdvReac Type Severity Reaction Status Date / Time Sulfa (Sulfonamide Allergy Intermediate BLISTERS, Verified 11/10/19 12:14 Antibiotics) HIVES morphine Allergy Unknown pt unsure Unverified 11/10/19 12:14 Past Med/Surg History Medical History Altered mental status (Acute) Bilateral knee pain (Acute) CAD (coronary artery disease) (Chronic) Contusion of multiple sites (Acute) Diabetes (Chronic) Diabetic peripheral neuropathy associated with type 2 diabetes mellitus Facial contusion (Acute) Fall (Acute) Foot deformity Head trauma (Acute) Hematoma of arm (Acute) Hypothyroidism (Chronic) Loss of sensation Obesity (Chronic) Pacemaker (Chronic) Rhabdomyolysis (Acute) Right hip pain (Acute) Right sided weakness (Acute) Sinusitis (Acute) Skin cancer (Resolved) Skin tear of forearm without complication (Acute) Surgical History Hx of appendectomy (Acute) Family History Other Family history non-contributory Social History Preferred Language: Kazakh Communication Ability: Unable Pump Tester Required: No Beliefs That Will Affect Care: None marital status: / Current Living Situation[facility] Current Living Situation Comment: [facility] Feels Safe at Home: Yes Smoking Status: Former smoker Second Hand Exposure: No ; Hx Alcohol Use: No Hx Substance Use: No Review of Systems See HPI for pertinent positives & negatives. Unobtainable due to cognitive status Physical Exam Vital Signs Vital Signs - 24 hr 11/10/19 11:22 11/10/19 11:28 11/10/19 11:30 Temperature 36.6 C Temperature Source Oral Pulse Rate 76 80 78 Pulse Rate [Apical] 79 Pulse Rate from SpO2 Sensor 80 Respiratory Rate 30 H 40 H 40 H Respiratory Effort / Characteristics Short of Breath Respiratory Depth Respiratory Pattern Tachypnea Blood Pressure 155/63 H 155/63 H Blood Pressure [Right Arm] 155/63 H Blood Pressure Mean 93 109 Blood Pressure Mean [Right Arm] 93 Blood Pressure Position Sitting Blood Pressure Position [Right Arm] Sitting Pulse Oximetry 95 93 95 Oxygen Delivery Method Room Air Nasal Cannula Nasal Cannula Oxygen Flow Rate 6 4 4 Fraction of Inspired Oxygen Sepsis Recent Fever Within 48 Hours No Sepsis New/Unexplained Change in Mental Status Yes Sepsis Action Taken by Nursing No Action Required 11/10/19 11:31 11/10/19 11:45 11/10/19 12:00 Temperature Temperature Source Pulse Rate 78 76 75 Pulse Rate [Apical] Pulse Rate from SpO2 Sensor 76 75 Respiratory Rate 46 H 47 H 24 Respiratory Effort / Characteristics Respiratory Depth Respiratory Pattern Blood Pressure 158/52 H Blood Pressure [Right Arm] Blood Pressure Mean 110 Blood Pressure Mean [Right Arm] Blood Pressure Position Blood Pressure Position [Right Arm] Pulse Oximetry 95 96 96 Oxygen Delivery Method Nasal Cannula Nasal Cannula Nasal Cannula Oxygen Flow Rate 4 4 4 Fraction of Inspired Oxygen Sepsis Recent Fever Within 48 Hours Sepsis New/Unexplained Change in Mental Status Sepsis Action Taken by Nursing 11/10/19 12:15 11/10/19 12:30 11/10/19 12:45 Temperature Temperature Source Pulse Rate 73 72 69 Pulse Rate [Apical] Pulse Rate from SpO2 Sensor 73 72 69 Respiratory Rate 42 H 29 H 37 H Respiratory Effort / Characteristics Respiratory Depth Respiratory Pattern Blood Pressure 148/69 H Blood Pressure [Right Arm] Blood Pressure Mean 93 Blood Pressure Mean [Right Arm] Blood Pressure Position Blood Pressure Position [Right Arm] Pulse Oximetry 95 95 95 Oxygen Delivery Method Nasal Cannula Nasal Cannula Nasal Cannula Oxygen Flow Rate 4 4 4 Fraction of Inspired Oxygen Sepsis Recent Fever Within 48 Hours Sepsis New/Unexplained Change in Mental Status Sepsis Action Taken by Nursing 11/10/19 13:00 11/10/19 13:15 11/10/19 13:18 Temperature Temperature Source Pulse Rate 72 71 70 Pulse Rate [Apical] Pulse Rate from SpO2 Sensor 73 71 Respiratory Rate 32 H 45 H 36 H Respiratory Effort / Characteristics Spontaneous Labored Short of Breath Respiratory Depth Shallow Respiratory Pattern Tachypnea Blood Pressure 158/72 H Blood Pressure [Right Arm] Blood Pressure Mean 90 Blood Pressure Mean [Right Arm] Blood Pressure Position Blood Pressure Position [Right Arm] Pulse Oximetry 95 96 94 Oxygen Delivery Method Nasal Cannula BiPAP Oxygen Flow Rate 4 Fraction of Inspired Oxygen 40 Sepsis Recent Fever Within 48 Hours Sepsis New/Unexplained Change in Mental Status Sepsis Action Taken by Nursing 11/10/19 13:30 11/10/19 13:45 11/10/19 14:00 Temperature Temperature Source Pulse Rate 70 72 72 Pulse Rate [Apical] Pulse Rate from SpO2 Sensor 70 72 72 Respiratory Rate 39 H 30 H 41 H Respiratory Effort / Characteristics Respiratory Depth Respiratory Pattern Blood Pressure 152/70 H 159/61 H Blood Pressure [Right Arm] Blood Pressure Mean 91 91 Blood Pressure Mean [Right Arm] Blood Pressure Position Blood Pressure Position [Right Arm] Pulse Oximetry 92 96 93 Oxygen Delivery Method BiPAP BiPAP BiPAP Oxygen Flow Rate Fraction of Inspired Oxygen Sepsis Recent Fever Within 48 Hours Sepsis New/Unexplained Change in Mental Status Sepsis Action Taken by Nursing 11/10/19 14:01 11/10/19 14:15 11/10/19 14:30 Temperature Temperature Source Pulse Rate 71 70 69 Pulse Rate [Apical] Pulse Rate from SpO2 Sensor 71 70 69 Respiratory Rate 42 H 36 H 36 H Respiratory Effort / Characteristics Respiratory Depth Respiratory Pattern Blood Pressure 157/63 H Blood Pressure [Right Arm] Blood Pressure Mean 97 Blood Pressure Mean [Right Arm] Blood Pressure Position Blood Pressure Position [Right Arm] Pulse Oximetry 94 92 92 Oxygen Delivery Method BiPAP BiPAP BiPAP Oxygen Flow Rate Fraction of Inspired Oxygen Sepsis Recent Fever Within 48 Hours Sepsis New/Unexplained Change in Mental Status Sepsis Action Taken by Nursing 11/10/19 15:00 11/10/19 15:15 Temperature Temperature Source Pulse Rate 67 64 Pulse Rate [Apical] Pulse Rate from SpO2 Sensor 67 64 Respiratory Rate 35 H 36 H Respiratory Effort / Characteristics Respiratory Depth Respiratory Pattern Blood Pressure 146/69 H Blood Pressure [Right Arm] Blood Pressure Mean 91 Blood Pressure Mean [Right Arm] Blood Pressure Position Blood Pressure Position [Right Arm] Pulse Oximetry 93 93 Oxygen Delivery Method Oxygen Flow Rate Fraction of Inspired Oxygen Sepsis Recent Fever Within 48 Hours Sepsis New/Unexplained Change in Mental Status Sepsis Action Taken by Nursing GENERAL: alert, ill appearing, well nourished, moderate distress, non-toxic EYE EXAM: normal conjunctiva, PERRL and EOM's grossly intact OROPHARYNX: no exudate, no erythema, lips, buccal mucosa, and tongue normal and mucous membranes are moist NECK: supple, no nuchal rigidity, no adenopathy, non-tender LUNGS: Increased work of breathing, tachypnea, bilateral rales HEART: no murmurs, S1 normal and S2 normal, patient paced at 76 on telemetry ABDOMEN: abdomen soft, non-tender, normo-active bowel sounds, no masses, no rebound or guarding. BACK: Back is symmetrical on inspection and there is no deformity, no midline tenderness, no CVA tenderness. SKIN: no rashes and no bruising UPPER EXTREMITIES: upper extremities are grossly normal. FROM, nml pulses b/l. LOWER EXTREMITIES: Trace pitting edema. FROM, nml pulses b/l. Chronic appearing skin changes bilateral pretibial regions. NEURO EXAM: Normal sensorium, cranial nerves II-XII grossly intact, normal speech, global generalized weakness. Gross sensation intact. Course Course 1300: Patient still tachypneic, sats in the mid 90s, blood pressure and heart rate stable. 1320: Discussed with son, Jude Burgos, at number [phone]. Extensive discussion regarding her past medical history, current condition, concern for her overall poor prognosis and current critical state. He states at this time she is full code and he will discuss this with his brother. He states his brother is scheduled to show up to his house within the next 10 minutes and they are getting in the car and driving from [place] to [place] to see her. He states they do have some paperwork they believe regarding a living will, however up until this point she has made all of her decisions herself. 1345: Repeat evaluation patient's tachypnea and work of breathing are slightly improved, patient verbalizes that she feels improved with the BiPAP in place. I did update her that I spoke with her son and that he is in route. 1426: Patient still tachypneic, oxygen saturations in the mid 90s. Still awaiting callback from hospitalist team. 1530: Called son again, they state living will states pt is to be a DNI/DNR. Discussed with them measures for comfort, poor prognosis at this time. Extensive discussion regarding possible evolution of worsening condition and unlikely return to her prior state. They are in agreement with additional noninvasive measures being used such as NIPPV, IVF, antibiotics. Administered Medications Acetaminophen (Ofirmev) 1,000 mg in 100 mls @ 400 mls/hr IV Q8H PRN PRN Reason: Pain or Fever Stop: 11/13/19 18:02 Last Infusion: 11/10/19 20:44 Dose: 0 mls/hr Documented by: [id number] Admin: 11/10/19 20:29 Dose: 400 mls/hr Documented by: [id number] Miscellaneous (Check Scopolamine Patch Placement) 1 ea N/A QS NESSA Stop: 12/12/19 15:59 Last Admin: 11/12/19 15:40 Dose: 1 ea Documented by: [id number] Morphine Sulfate (Morphine Sulfate) 1 mg IV Q1H PRN PRN Reason: If RR>20 Stop: 11/25/19 09:34 Last Admin: 11/12/19 18:27 Dose: 1 mg Documented by: [id number] Admin: 11/12/19 15:40 Dose: 1 mg Documented by: [id number] Admin: 11/12/19 11:57 Dose: 1 mg Documented by: [id number] Admin: 11/12/19 08:52 Dose: 1 mg Documented by: [id number] Admin: 11/12/19 02:05 Dose: 1 mg Documented by: [id number] Admin: 11/11/19 21:00 Dose: 1 mg Documented by: [id number] Scopolamine (Transderm-Scop) 1.5 mg TD Q72H [facility] Stop: 12/12/19 10:59 Last Admin: 11/12/19 11:57 Dose: 1.5 mg Documented by: [id number] Discontinued Medications Furosemide (Lasix) 40 mg IV NOW STA Stop: 11/10/19 12:59 Last Admin: 11/10/19 13:51 Dose: 40 mg Documented by: [id number] Heparin Sodium (Porcine) (Heparin Sodium (Porcine)) 5,000 units SQ Q8 NESSA Stop: 12/10/19 21:59 Last Admin: 11/11/19 05:08 Dose: 5,000 units Documented by: [id number] Cosigned by: [id number] Admin: 11/10/19 22:11 Dose: 5,000 units Documented by: [id number] Cosigned by: [id number] Ceftriaxone Sodium (Rocephin) 2,000 mg in 70 mls @ 140 mls/hr IV NOW STA Stop: 11/10/19 15:10 Last Infusion: 11/10/19 16:48 Dose: 0 mls/hr Documented by: [id number] Admin: 11/10/19 15:45 Dose: 140 mls/hr Documented by: [id number] Vancomycin HCl 2,000 mg/ (Sodium Chloride) 540 mls @ 200 mls/hr IV TODAY@1800 ONE Stop: 11/10/19 20:41 Last Infusion: 11/10/19 21:58 Dose: 0 mls/hr Documented by: [id number] Admin: 11/10/19 18:49 Dose: 200 mls/hr Documented by: [id number] Cefepime HCl 2,000 mg/ Syringe 20 mls @ 5 mls/min IV NOW ONE Stop: 11/10/19 18:03 Last Admin: 11/10/19 18:49 Dose: 5 mls/min Documented by: [id number] Levothyroxine Sodium 44 mcg/ (Syringe) 2.2 mls @ 1.1 mls/min IV DAILY@0900 [facility] Stop: 12/11/19 08:59 Last Admin: 11/11/19 10:51 Dose: Not Given Documented by: [id number] Albumin Human (Albumin 25%) 50 mls @ 50 mls/hr IV ONE ONE Stop: 11/11/19 05:09 Last Infusion: 11/11/19 05:41 Dose: 0 mls/hr Documented by: [id number] Admin: 11/11/19 04:41 Dose: 50 mls/hr Documented by: [id number] Insulin Aspart (Novolog Flexpen) 0 units SC Q6 [facility] Stop: 12/10/19 17:59 Last Admin: 11/11/19 05:11 Dose: Not Given Documented by: [id number] Cosigned by: [id number] Admin: 11/10/19 23:53 Dose: Not Given Documented by: [id number] Cosigned by: [id number] Admin: 11/10/19 18:24 Dose: 1 units Documented by: [id number] Cosigned by: [id number] Insulin Glargine (Lantus Solostar Pen) 10 units SC 0800,2000 [facility] Stop: 12/10/19 19:59 Last Admin: 11/11/19 08:34 Dose: 10 units Documented by: [id number] Cosigned by: [id number] Admin: 11/10/19 20:19 Dose: 10 units Documented by: [id number] Cosigned by: [id number] Morphine Sulfate (Morphine Sulfate) 1 mg IV Q30M PRN PRN Reason: pain, tachypnea, sev dyspnea Stop: 11/25/19 09:34 Last Admin: 11/11/19 10:10 Dose: 1 mg Documented by: [id number] Morphine Sulfate (Morphine Sulfate) 2 mg IV NOW STA Stop: 11/11/19 18:17 Last Admin: 11/11/19 18:18 Dose: 2 mg Documented by: [id number] Morphine Sulfate (Morphine Sulfate) 2 mg IV NOW STA Stop: 11/12/19 10:31 Last Admin: 11/12/19 10:38 Dose: 2 mg Documented by: [id number] Nitroglycerin (Nitro-Bid 2%) 1 inch EXT ONE STA Stop: 11/10/19 18:04 Last Admin: 11/10/19 18:37 Dose: 1 inch Documented by: [id number] Polymyxin/Trimethoprim Sulfate (Polytrim) 1 drops OPB QID NESSA Stop: 11/17/19 20:59 Last Admin: 11/11/19 17:42 Dose: Not Given Documented by: [id number] Admin: 11/11/19 13:42 Dose: Not Given Documented by: [id number] Admin: 11/11/19 08:34 Dose: 1 drops Documented by: [id number] Admin: 11/10/19 20:20 Dose: 1 drops Documented by: [id number] Critical Care Time Critical Care Time: Yes Total Critical Care Time: 65 Critical care of [time] min performed to assess and manage high likelihood of life-threatening respiratory failure, involving labs and imaging performed with assessment to evaluate respiratory failure diagnosis with frequent reassessment. This time includes bedside time, treatment discussions with patient/family/consultants, documentation time and excludes procedure time. Medical Decision Making Differential Diagnosis Differential diagnoses includes but is not limited to pneumonia, bronchitis, COPD/Asthma exacerbation, pneumothorax, pulmonary embolism, congestive heart failure, acute coronary syndrome Medical Records Attestation: I reviewed the patient's medical records. Home Medications Current Medication List: was personally reviewed by me Laboratory Data Attestation: I reviewed the patient's lab results. Result diagrams: 11/11/19 05:13 11/11/19 05:13 Lab Results 11/10/19 11/10/19 11/10/19 Range/Units 11:30 11:30 11:30 WBC (4.8-10.8) K/uL RBC (4.2-5.4) M/uL Hgb (12.0-16.0) g/dL Hct (37-47) % MCV (80-100) fL MCH (25-34) pg MCHC (32-36) g/dL RDW Std Deviation (36.4-46.3) fL RDW Coeff of Ayden (11.5-14.5) % Plt Count (130-400) K/uL MPV (7.4-10.4) fL Immature Gran % (Auto) % Neut % (Auto) % Lymph % (Auto) % [place] % (Auto) % Eos % (Auto) % Baso % (Auto) % Immature Gran # (Auto) (0.00-0.02) K/uL Neut # (Auto) (1.4-6.5) K/uL Lymph # (Auto) (1.2-3.4) K/uL [place] # (Auto) (0.11-0.59) K/uL Eos # (Auto) (0-0.5) K/uL Baso # (Auto) (0-0.2) K/uL PT (9.0-12.0) Seconds INR (0.9-1.1) APTT (21.0-31.0) Seconds PTT Ratio Sodium (136-145) mmol/L Potassium (3.5-5.1) mmol/L Chloride (98-107) mmol/L Carbon Dioxide (21-32) mmol/L Anion Gap (3-11) BUN (7-18) mg/dl Creatinine (0.6-1.2) mg/dl Est Cr Clr Drug Dosing ml/min Est GFR ( Amer) Est GFR (Non-Af Amer) BUN/Creatinine Ratio (10-20) Glucose (70-99) mg/dl Lactate (0.4-2.0) mmol/L Calcium (8.5-10.1) mg/dl Magnesium (1.8-2.4) mg/dl Total Bilirubin (0.2-1) mg/dl AST (15-37) U/L ALT (12-78) U/L Alkaline Phosphatase (45-117) U/L Troponin I (0-0.045) ng/ml NT-Pro-B Natriuret Pep (0-1800) pg/ml Total Protein (6.4-8.2) gm/dl Albumin (3.4-5.0) gm/dl Globulin (2.5-4.0) gm/dl Albumin/Globulin Ratio (0.9-2) Procalcitonin (0-0.5) ng/ml Adenovirus (PCR) Not Detected (NotDetected) B. pertussis DNA (PCR) Not Detected (NotDetected) B.parapertussis DNA PCR Not Detected (NotDetected) C. pneumoniae DNA (PCR) Not Detected (NotDetected) Coronavirus OC43 (PCR) Not Detected (NotDetected) Coronavirus HKU1 (PCR) Not Detected (NotDetected) Coronavirus 229E (PCR) Not Detected (NotDetected) COVID-19 PCR (Negative) Coronavirus NL63 (PCR) Not Detected (NotDetected) Human Metapneumovir PCR Not Detected (NotDetected) Influenza Type A (PCR) Neg for Influ A Not Detected (Neg) Influenza Type B (PCR) Neg for Influ B Not Detected (Neg) M. pneumoniae (PCR) Not Detected (NotDetected) Parainfluenza 1 (PCR) Not Detected (NotDetected) Parainfluenza 2 (PCR) Not Detected (NotDetected) Parainfluenza 3 (PCR) Not Detected (NotDetected) Parainfluenza 4 (PCR) Not Detected (NotDetected) RSV (PCR) Not Detected (NotDetected) Entero/Rhino (PCR) Not Detected (NotDetected) SARS-CoV-2 RNA (RT-PCR) Cancelled 11/10/19 11/10/19 11/10/19 Range/Units 11:30 11:43 11:43 WBC 6.52 (4.8-10.8) K/uL RBC 4.49 (4.2-5.4) M/uL Hgb 12.8 (12.0-16.0) g/dL Hct 39.4 (37-47) % MCV 87.8 (80-100) fL MCH 28.5 (25-34) pg MCHC 32.5 (32-36) g/dL RDW Std Deviation 45.6 (36.4-46.3) fL RDW Coeff of Ayden 14.1 (11.5-14.5) % Plt Count 268 (130-400) K/uL MPV 10.0 (7.4-10.4) fL Immature Gran % (Auto) 0.3 % Neut % (Auto) 81.0 % Lymph % (Auto) 11.0 % [place] % (Auto) 7.4 % Eos % (Auto) 0.0 % Baso % (Auto) 0.3 % Immature Gran # (Auto) 0.02 (0.00-0.02) K/uL Neut # (Auto) 5.28 (1.4-6.5) K/uL Lymph # (Auto) 0.72 L (1.2-3.4) K/uL [place] # (Auto) 0.48 (0.11-0.59) K/uL Eos # (Auto) 0.00 (0-0.5) K/uL Baso # (Auto) 0.02 (0-0.2) K/uL PT 11.0 (9.0-12.0) Seconds INR 1.0 (0.9-1.1) APTT 27.9 (21.0-31.0) Seconds PTT Ratio 1.0 Sodium (136-145) mmol/L Potassium (3.5-5.1) mmol/L Chloride (98-107) mmol/L Carbon Dioxide (21-32) mmol/L Anion Gap (3-11) BUN (7-18) mg/dl Creatinine (0.6-1.2) mg/dl Est Cr Clr Drug Dosing ml/min Est GFR ( Amer) Est GFR (Non-Af Amer) BUN/Creatinine Ratio (10-20) Glucose (70-99) mg/dl Lactate (0.4-2.0) mmol/L Calcium (8.5-10.1) mg/dl Magnesium (1.8-2.4) mg/dl Total Bilirubin (0.2-1) mg/dl AST (15-37) U/L ALT (12-78) U/L Alkaline Phosphatase (45-117) U/L Troponin I (0-0.045) ng/ml NT-Pro-B Natriuret Pep (0-1800) pg/ml Total Protein (6.4-8.2) gm/dl Albumin (3.4-5.0) gm/dl Globulin (2.5-4.0) gm/dl Albumin/Globulin Ratio (0.9-2) Procalcitonin (0-0.5) ng/ml Adenovirus (PCR) (NotDetected) B. pertussis DNA (PCR) (NotDetected) B.parapertussis DNA PCR (NotDetected) C. pneumoniae DNA (PCR) (NotDetected) Coronavirus OC43 (PCR) (NotDetected) Coronavirus HKU1 (PCR) (NotDetected) Coronavirus 229E (PCR) (NotDetected) COVID-19 PCR POSITIVE A* (Negative) Coronavirus NL63 (PCR) (NotDetected) Human Metapneumovir PCR (NotDetected) Influenza Type A (PCR) (Neg) Influenza Type B (PCR) (Neg) M. pneumoniae (PCR) (NotDetected) Parainfluenza 1 (PCR) (NotDetected) Parainfluenza 2 (PCR) (NotDetected) Parainfluenza 3 (PCR) (NotDetected) Parainfluenza 4 (PCR) (NotDetected) RSV (PCR) (NotDetected) Entero/Rhino (PCR) (NotDetected) SARS-CoV-2 RNA (RT-PCR) 11/10/19 11/10/19 11/10/19 Range/Units 11:43 11:43 11:43 WBC (4.8-10.8) K/uL RBC (4.2-5.4) M/uL Hgb (12.0-16.0) g/dL Hct (37-47) % MCV (80-100) fL MCH (25-34) pg MCHC (32-36) g/dL RDW Std Deviation (36.4-46.3) fL RDW Coeff of Ayden (11.5-14.5) % Plt Count (130-400) K/uL MPV (7.4-10.4) fL Immature Gran % (Auto) % Neut % (Auto) % Lymph % (Auto) % [place] % (Auto) % Eos % (Auto) % Baso % (Auto) % Immature Gran # (Auto) (0.00-0.02) K/uL Neut # (Auto) (1.4-6.5) K/uL Lymph # (Auto) (1.2-3.4) K/uL [place] # (Auto) (0.11-0.59) K/uL Eos # (Auto) (0-0.5) K/uL Baso # (Auto) (0-0.2) K/uL PT (9.0-12.0) Seconds INR (0.9-1.1) APTT (21.0-31.0) Seconds PTT Ratio Sodium 141 (136-145) mmol/L Potassium 4.7 (3.5-5.1) mmol/L Chloride 111 H (98-107) mmol/L Carbon Dioxide 24 (21-32) mmol/L Anion Gap 6.0 (3-11) BUN 53 H (7-18) mg/dl Creatinine 2.29 H (0.6-1.2) mg/dl Est Cr Clr Drug Dosing 19.0 ml/min Est GFR ( Amer) 21.4 Est GFR (Non-Af Amer) 18.5 BUN/Creatinine Ratio 23.2 H (10-20) Glucose 229 H (70-99) mg/dl Lactate 1.9 (0.4-2.0) mmol/L Calcium 8.5 (8.5-10.1) mg/dl Magnesium 2.7 H (1.8-2.4) mg/dl Total Bilirubin 0.6 (0.2-1) mg/dl AST 51 H (15-37) U/L ALT 34 (12-78) U/L Alkaline Phosphatase 63 (45-117) U/L Troponin I 0.046 H* (0-0.045) ng/ml NT-Pro-B Natriuret Pep (0-1800) pg/ml Total Protein 7.8 (6.4-8.2) gm/dl Albumin 3.0 L (3.4-5.0) gm/dl Globulin 4.8 H (2.5-4.0) gm/dl Albumin/Globulin Ratio 0.6 L (0.9-2) Procalcitonin 0.14 (0-0.5) ng/ml Adenovirus (PCR) (NotDetected) B. pertussis DNA (PCR) (NotDetected) B.parapertussis DNA PCR (NotDetected) C. pneumoniae DNA (PCR) (NotDetected) Coronavirus OC43 (PCR) (NotDetected) Coronavirus HKU1 (PCR) (NotDetected) Coronavirus 229E (PCR) (NotDetected) COVID-19 PCR (Negative) Coronavirus NL63 (PCR) (NotDetected) Human Metapneumovir PCR (NotDetected) Influenza Type A (PCR) (Neg) Influenza Type B (PCR) (Neg) M. pneumoniae (PCR) (NotDetected) Parainfluenza 1 (PCR) (NotDetected) Parainfluenza 2 (PCR) (NotDetected) Parainfluenza 3 (PCR) (NotDetected) Parainfluenza 4 (PCR) (NotDetected) RSV (PCR) (NotDetected) Entero/Rhino (PCR) (NotDetected) SARS-CoV-2 RNA (RT-PCR) 11/10/19 Range/Units 11:43 WBC (4.8-10.8) K/uL RBC (4.2-5.4) M/uL Hgb (12.0-16.0) g/dL Hct (37-47) % MCV (80-100) fL MCH (25-34) pg MCHC (32-36) g/dL RDW Std Deviation (36.4-46.3) fL RDW Coeff of Ayden (11.5-14.5) % Plt Count (130-400) K/uL MPV (7.4-10.4) fL Immature Gran % (Auto) % Neut % (Auto) % Lymph % (Auto) % [place] % (Auto) % Eos % (Auto) % Baso % (Auto) % Immature Gran # (Auto) (0.00-0.02) K/uL Neut # (Auto) (1.4-6.5) K/uL Lymph # (Auto) (1.2-3.4) K/uL [place] # (Auto) (0.11-0.59) K/uL Eos # (Auto) (0-0.5) K/uL Baso # (Auto) (0-0.2) K/uL PT (9.0-12.0) Seconds INR (0.9-1.1) APTT (21.0-31.0) Seconds PTT Ratio Sodium (136-145) mmol/L Potassium (3.5-5.1) mmol/L Chloride (98-107) mmol/L Carbon Dioxide (21-32) mmol/L Anion Gap (3-11) BUN (7-18) mg/dl Creatinine (0.6-1.2) mg/dl Est Cr Clr Drug Dosing ml/min Est GFR ( Amer) Est GFR (Non-Af Amer) BUN/Creatinine Ratio (10-20) Glucose (70-99) mg/dl Lactate (0.4-2.0) mmol/L Calcium (8.5-10.1) mg/dl Magnesium (1.8-2.4) mg/dl Total Bilirubin (0.2-1) mg/dl AST (15-37) U/L ALT (12-78) U/L Alkaline Phosphatase (45-117) U/L Troponin I (0-0.045) ng/ml NT-Pro-B Natriuret Pep 944 (0-1800) pg/ml Total Protein (6.4-8.2) gm/dl Albumin (3.4-5.0) gm/dl Globulin (2.5-4.0) gm/dl Albumin/Globulin Ratio (0.9-2) Procalcitonin (0-0.5) ng/ml Adenovirus (PCR) (NotDetected) B. pertussis DNA (PCR) (NotDetected) B.parapertussis DNA PCR (NotDetected) C. pneumoniae DNA (PCR) (NotDetected) Coronavirus OC43 (PCR) (NotDetected) Coronavirus HKU1 (PCR) (NotDetected) Coronavirus 229E (PCR) (NotDetected) COVID-19 PCR (Negative) Coronavirus NL63 (PCR) (NotDetected) Human Metapneumovir PCR (NotDetected) Influenza Type A (PCR) (Neg) Influenza Type B (PCR) (Neg) M. pneumoniae (PCR) (NotDetected) Parainfluenza 1 (PCR) (NotDetected) Parainfluenza 2 (PCR) (NotDetected) Parainfluenza 3 (PCR) (NotDetected) Parainfluenza 4 (PCR) (NotDetected) RSV (PCR) (NotDetected) Entero/Rhino (PCR) (NotDetected) SARS-CoV-2 RNA (RT-PCR) Imaging Data Radiologist's Impression: XR chest 1V portable CLINICAL HISTORY: 89 years-old Female presenting with SEPSIS. TECHNIQUE: Portable upright AP view of the chest was obtained. COMPARISON: 08/02/2018. FINDINGS: Left subclavian pacer with leads to the right atrium and right ventricular apex. Atherosclerosis of the aortic arch. Cardiac silhouette mildly enlarged. Interval increase and perihilar predominant opacities. Underlying bilateral hilar prominence. Interstitial prominence is also evident. Patchy opacities in the right upper, right lower, and left central lungs. No large effusion or pneumothorax. Suspected osteopenia. Upper abdomen normal. IMPRESSION: 1. Interval worsening of multifocal central predominant infiltrates. Findings could represent pulmonary edema versus multifocal pneumonia. Follow-up advised. 2. Cardiomegaly with some degree of volume overload and congestive change suspected. 3. Bilateral hilar prominence could be vascular or suggest underlying lymphaden opathy. ACT 112: Negative or not required by law. Electronically signed by: Rajendra Aguilar M.D. 11/10/2019 1:04 PM ECG Data Attestation: I personally reviewed and interpreted this ECG as follows: Indication: + SOB/dyspnea Rate (beats per minute): 79 ECG Intervals/blocks: + IVCD and + Prolonged QT ECG [place]: + Left axis deviation Change: no significant change Blood Pressure Blood Pressure Findings: Elevated blood pressure Blood Pressure Disposition: further management by hospitalist YOLANDA Narrative Elderly female presenting with SOB and hypoxia. Pt tachypneic despite improved oxygenation with NC and then oxymask. Given tachypnea and increased wob, labs drawn and cxr performed. Pt afebrile on arrival. Given ddx did include other etiology, no initial high suspicion for COVID. CXR suggestive of pulmonary edema, and pt had no leukocytosis as labs began to result. Additional labs revealed elevated creatinine, elevated troponin and BNP. Pt placed on BiPAP and reported feeling improved. Improvement in WOB and slight improvement in rate of breathing. Additional testing for influenza, viral resp panel and COVID pending. Pt given lasix additionally to help with diuresis and BP. Pt's family updated twice, salvador in light of condition, comorbidities, and age. I discussed with them likely poor prognosis after also noting COVID positive result. Two sons were updated enroute as they are driving in from [place] after being told of their mothers condition. Upon their additional investigation and our conversation, pt was DNR/DNI. We attempted to keep pt comfortable on BiPAP. Pt remained hemodynamically stable while in the ER. An order was placed for continuous cardiac monitoring. The monitor shows a rate of 70 with paced rhythm. Impression & Plan Respiratory failure with hypoxia, CHF (congestive heart failure), Pulmonary edema, Elevated troponin, ESEQUIEL (acute kidney injury), Elevated brain natriuretic peptide (BNP) level, Acute UTI (urinary tract infection), Hypertension, 2019 novel coronavirus disease (COVID-19) Discharge Plan Visit Data *Final* Discharge Date/Time: 11/10/19 15:47 Chief Complaint: Shortness of Breath/Dyspnea ED Provider: Abigail Williamson Discharge Problem: Respiratory failure with hypoxia, CHF (congestive heart failure), Pulmonary edema, Elevated troponin, ESEQUIEL (acute kidney injury), Elevated brain natriuretic peptide (BNP) level, Acute UTI (urinary tract infection), Hypertension, 2019 novel coronavirus disease (COVID-19) Patient Disposition: Admitted As Inpatient Condition: Critical Discharge Instructions Interventions: ED Discharge Assessment Last Done: 11/10/19 15:47
[2019-11-10 12:08] LABS: Hematocrit (blood only) 39.4 % (37-47); Hemoglobin 12.8 g/dL (12.0-16.0); Mean Corpuscular Hemoglobin 28.5 pg (25-34); Mean Corpuscular Hgb Conc 32.5 g/dL (32-36); Mean Corpuscular Volume 87.8 fL (80-100); Platelet Count 268 K/uL (130-400); RDW Coefficient of Variation 14.1 % (11.5-14.5); RDW Standard Deviation 45.6 fL (36.4-46.3); Red Blood Count 4.49 M/uL (4.2-5.4); White Blood Count 6.52 K/uL (4.8-10.8)
[2019-11-10 12:26] LABS: BUN Creatinine Ratio 23.2 (10-20); Calcium 8.5 mg/dl (8.5-10.1); Est GFR (African American) 21.4; Est GFR (Non-African American) 18.5; Magnesium 2.7 mg/dl (1.8-2.4); Partial Thromboplastin Time 27.9 Seconds (21.0-31.0); Potassium 4.7 mmol/L (3.5-5.1)
[2019-11-10 12:30] LABS: Basophils # (auto) 0.02 K/uL (0-0.2); Basophils % (auto) 0.3 %; Immature Granulocytes # (auto) 0.02 K/uL (0.00-0.02); Immature Granulocytes % (auto) 0.3 %; Lymphocytes # (auto) 0.72 K/uL (1.2-3.4); Monocytes # (auto) 0.48 K/uL (0.11-0.59); Monocytes % (auto) 7.4 %; Neutrophils # (auto) 5.28 K/uL (1.4-6.5)
[2019-11-10 12:44] LABS: Influenza A virus by PCR Neg for Influ A (Neg); Influenza B virus by PCR Neg for Influ B (Neg)
[2019-11-10 12:51] LABS: Albumin Globulin Ratio 0.6 (0.9-2); Bilirubin,Total 0.6 mg/dl (0.2-1); Globulin 4.8 gm/dl (2.5-4.0); Total Protein 7.8 gm/dl (6.4-8.2); Troponin I 0.046 ng/ml (0-0.045)
[2019-11-10] MEDS ORDERED: FUROSEMIDE 40 MG/4 ML VIAL IV STA (12:58)
--- NOTE | 2019-11-10 13:06 | XRay Report ---
XR chest 1V portable CLINICAL HISTORY: 89 years-old Female presenting with SEPSIS. TECHNIQUE: Portable upright AP view of the chest was obtained. COMPARISON: 08/02/2018. FINDINGS: Left subclavian pacer with leads to the right atrium and right ventricular apex. Atherosclerosis of t he aortic arch. Cardiac silhouette mildly enlarged. Interval increase and perihilar predominant opaci ties. Underlying bilateral hilar prominence. Interstitial prominence is also evident. Patchy opacitie s in the right upper, right lower, and left central lungs. No large effusion or pneumothorax. Suspect ed osteopenia. Upper abdomen normal. IMPRESSION: 1. Interval worsening of multifocal central predominant infiltrates. Findings could represent pulmon ernesto edema versus multifocal pneumonia. Follow-up advised. 2. Cardiomegaly with some degree of volume overload and congestive change suspected. 3. Bilateral hilar prominence could be vascular or suggest underlying lymphadenopathy. ACT 112: Negative or not required by law. Electronically signed by: Rajendra Aguilar M.D. 11/10/2019 1:04 PM
[2019-11-10 14:15] LABS: Appearance Urine Turbid (Clear); Bacteria Urine Automated 4+ (Negative); Bilirubin Urine Negative (Negative); Blood Urine 1+ (Negative); Color Urine Dark Yellow; Epithelial Cell Urine Auto >30 /lpf (0-5); Glucose Urine UA Negative (Negative); Ketones Urine Negative (Negative); Leukocyte Esterase Urine 3+ (Negative); Nitrite Urine Negative (Negative); Specific Gravity Urine 1.018 (1.000-1.030); Urobilinogen Urine Negative (Negative); WBC Urine Automated >30 /hpf (0-5)
[2019-11-10 14:21] LABS: Adenovirus PCR Not Detected (NotDetected); Bordetella parapertussis PCR Not Detected (NotDetected); Bordetella pertussis PCR Not Detected (NotDetected); Coronavirus 229E PCR Not Detected (NotDetected); Coronavirus HKU1 PCR Not Detected (NotDetected); Coronavirus NL63 PCR Not Detected (NotDetected); Coronavirus OC43PCR Not Detected (NotDetected); Human Metapneumovirus PCR Not Detected (NotDetected); Influenza A PCR Not Detected (NotDetected); Influenza B PCR Not Detected (NotDetected); Parainfluenza Virus 1 PCR Not Detected (NotDetected); Parainfluenza Virus 2 PCR Not Detected (NotDetected); Parainfluenza Virus 3 PCR Not Detected (NotDetected); Parainfluenza Virus 4 PCR Not Detected (NotDetected); Respiratory Syncytial VirusPCR Not Detected (NotDetected); Rhinovirus/Enterovirus PCR Not Detected (NotDetected)
[2019-11-10 14:22] LABS: Chlamydia pneumoniae PCR Not Detected (NotDetected); Mycoplasma pneumoniae PCR Not Detected (NotDetected)
--- NOTE | 2019-11-10 14:26 | Electrocardiogram Report ---
Test Reason : Blood Pressure : / mmHG Vent. Rate : 079 BPM Atrial Rate : 075 BPM P-R Int : 000 ms QRS Dur : 172 ms QT Int : 468 ms P-R-T Axes : 000 -74 095 degrees QTc Int : 536 ms Poor data quality, interpretation may be adversely affected Ventricular-paced rhythm with intermittent atrial sensing and atrial pacing Abnormal ECG When compared with ECG of 03-AUG-2018 06:42, Vent. rate has increased BY 16 BPM Confirmed by Justin Grewal ([id number]) on 11/10/2019 2:26:03 PM Referred By: REFERRED SELF Confirmed By:Justin Grewal
[2019-11-10 14:30] LABS: Protein Urine 2+ (Negative)
[2019-11-10 14:31] LABS: Sulfosalicylic Acid Urine Positive (Negative)
[2019-11-10 14:32] LABS: Mucus Urine Present (None Prsent)
[2019-11-10] MEDS ORDERED: cefTRIAXone SODIUM 2,000 MG/70 ML BAG IV STA (14:41)
--- NOTE | 2019-11-10 15:03 | History & Physical Report ---
Date of Service November 10, 2019 Assessment & Plan (1) Severe sepsis: Likely 2/2 multifocal pneumonia infection in setting of COVID-19 virus after possible exposure. Currently on BIPAP for acute respiratory failure with a poor prognosis. Initial ceftriaxone given in the ER. Blood cultures pending. Cont treatment with broad spectrum abx for now and closely monitor clincial response. As patient has not improved much so far, prognosis is poor and will strongly consider transitioning to palliative care. (2) COVID-19: supportive care. Pulm and ID consulted for additional thoughts. (3) Respiratory failure with hypoxia: Cont BIPAP for respiratory support. Cont treatment of underlying multifocal pneumonia and heart failure. Poor prognosis. (4) Acute heart failure: Lasix 40mg IV given in ER with approx 600ml out so far. Breathing not much improved and she is hypertensive. Giving a dose of nitro now and monitor clinical response and BP. NPO but when eats, low salt diet. Daily weights. Echo not able to order at this time because of positive virus status. (5) Pneumonia: Vanc and cefepime ordered to cover for MRSA and pseudomonas empirically. Will monitor clinical response and de-escalate pending clinical improvement or culture results. (6) Demand ischemia: elevated troponin was trended and not elevating. This is consistent with demand ischemia in the setting of sepsis. (7) Metabolic encephalopathy: Cont treatment of underlying acute issues including infection. It is noted that cefepime may contribute to confusion. Will watch for that. (8) DMII (diabetes mellitus, type 2): Basal bolus insulin for now. Hold all home medications. (9) Conjunctivitis: Trimethoprim drops QID (10) Acute worsening of stage 3 chronic kidney disease: In setting of sepsis with acute infection and heart failure. Cont to optimize her per plan above. Monitor BMP in am. (11) Pacemaker: Paced rhythm noted on EKG (12) Hypothyroidism: Will replace IV while NPO (13) DVT prophylaxis: Heparin DNR/DNI as confirmed with the patient and her son on admission. Dispo-uncertain, prognosis is very poor. Would have a low threshold to transition to palliative care measures. However, currently would like to try to treat her sepsis and see if we can improve her hemodynamics with lasix and nitroglycerin. I did speak with her family regarding her guarded prognosis but we did not discuss the topic of comfort care measures. [facility] History of Present Illness Primary Care Provider: [facility] 89 yo F presents with acute respiratory failure from [facility]. The patient has a h/o stroke with some questionable issues with communication at baseline, and she is currently answering some questions but not others. Intermittent confusion appears to be present, limiting the history. She reports not being in any pain, and is currently on BIPAP and appears comfortable. She cannot give more history beyond this. We did have a conversation about code status and she communicated to me that she does not want to be intubated. The question of CPR was a little more difficult to get an answer for, however, so I called and spoke with her son, Jude. He confirmed that she is a DNR/DNI and this was updated in the chart. History was gathered from reports from staff at [facility] and written records. Per staff at , she was exhibiting confusion, shortness of breath and increased fatigue over the past two days. Temp max was 99F at the facility. She began to desaturate into the high 80s on room air yesterday, with a worsening of this this morning prompting transfer to the ER. It is known that there are positive cases at her nursing facility, however, it is unknown if she was directly exposed to someone who was positive for COVID-19. Allergies Allergy/AdvReac Type Severity Reaction Status Date / Time Sulfa (Sulfonamide Allergy Intermediate BLISTERS, Verified 11/10/19 12:14 Antibiotics) HIVES morphine Allergy Unknown pt unsure Unverified 11/10/19 12:14 Home Medications Home Medications Medication Instructions Recorded Confirmed Type ergocalciferol (vitamin D2) 50,000 unit PO WK 07/04/18 11/10/19 History [Vitamin D2] Lantus Solostar U-100 Insulin 38 unit SUBCUT HS 08/01/18 11/10/19 History acetaminophen 650 mg PO Q4H PRN 11/10/19 11/10/19 History atorvastatin 10 mg PO QPM 11/10/19 11/10/19 History clopidogrel 75 mg PO QAM 11/10/19 11/10/19 History docusate sodium [Colace] 100 mg PO BID 11/10/19 11/10/19 History escitalopram oxalate [Lexapro] 10 mg PO QAM 11/10/19 11/10/19 History furosemide [Lasix] 20 mg PO 3XWK 11/10/19 11/10/19 History levothyroxine 88 mcg PO QAM 11/10/19 11/10/19 History naproxen sodium 220 mg PO Q6H PRN 11/10/19 11/10/19 History sennosides [senna] 8.6 mg PO UD PRN 11/10/19 11/10/19 History Past Med/Surg History Medical History Altered mental status (Acute) Bilateral knee pain (Acute) CAD (coronary artery disease) (Chronic) Contusion of multiple sites (Acute) Diabetes (Chronic) Diabetic peripheral neuropathy associated with type 2 diabetes mellitus Facial contusion (Acute) Fall (Acute) Foot deformity Head trauma (Acute) Hematoma of arm (Acute) Hypothyroidism (Chronic) Loss of sensation Obesity (Chronic) Pacemaker (Chronic) Rhabdomyolysis (Acute) Right hip pain (Acute) Right sided weakness (Acute) Sinusitis (Acute) Skin cancer (Resolved) Skin tear of forearm without complication (Acute) Surgical History Hx of appendectomy (Acute) Family History Other Family history non-contributory Social History Preferred Language: Maori Communication Ability: Unable Glass Finisher Required: No Beliefs That Will Affect Care: None marital status: / Current Living Situation: [facility] Current Living Situation Comment: [facility] Feels Safe at Home: Yes Smoking Status: Former smoker Second Hand Exposure: No ; Hx Alcohol Use: No Hx Substance Use: No Review of Systems Review of Systems: Other (intermittent confusion in setting of acute critical illness.) Physical Exam Physical Exam: CONSTITUTIONAL: WNWD, vitals as above, generally ill-appearing EYES: pupils are equal and round bilaterally, crusting on eyelashes, no scleral icterus ENT: external ear and nose normal, BIPAP mask in place NECK: trachea midline, no lymphadenopathy, normal thyroid RESPIRATORY: clear to auscultation bilaterally, no crackles, rales or wheezes, normal respiratory effort CARDIOVASCULAR: regular rate and rhythm, S1 and 2 heard without murmurs, gallops or rubs, no JVD, no peripheral edema CHEST: +pacemaker GASTROINTESTINAL: soft, nontender, nondistended MUSCULOSKELETAL: strength 5/5 throughout, head is normocephalic and atraumatic SKIN: warm and dry NEUROLOGIC: intermittent confusion, no claritza lethargy but periodically stares without answering question asked of her. PSYCHIATRIC: alert cooperative and oriented to person and place. Results & Data Results & Data ([facility]) Vital Signs (Past 12 Hours) Vital Signs Temp Pulse Pulse Resp BP BP Pulse Ox 11/10/19 14:30 69 36 H 157/63 H 92 11/10/19 14:15 70 36 H 92 11/10/19 14:01 71 42 H 94 11/10/19 14:00 72 41 H 159/61 H 93 11/10/19 13:45 72 30 H 96 11/10/19 13:30 70 39 H 152/70 H 92 11/10/19 13:18 70 36 H 94 11/10/19 13:15 71 45 H 96 11/10/19 13:00 72 32 H 158/72 H 11/10/19 12:45 69 37 H 95 11/10/19 12:30 72 29 H 148/69 H 95 11/10/19 12:15 73 42 H 95 11/10/19 12:00 75 24 158/52 H 96 11/10/19 11:45 76 47 H 96 11/10/19 11:31 78 46 H 95 11/10/19 11:30 78 40 H 155/63 H 95 11/10/19 11:28 80 40 H 93 11/10/19 11:22 36.6 C 76 79 30 H 155/63 H 155/63 H 95 Laboratory Results Short CBC 11/10/19 Range/Units 11:43 WBC 6.52 (4.8-10.8) K/uL Hgb 12.8 (12.0-16.0) g/dL Hct 39.4 (37-47) % Plt Count 268 (130-400) K/uL BMP 11/10/19 11:43 Sodium 141 Potassium 4.7 Chloride 111 H Carbon Dioxide 24 BUN 53 H Creatinine 2.29 H Glucose 229 H Calcium 8.5 Cardiac Enzymes 11/10/19 Range/Units 11:43 Troponin I 0.046 H* (0-0.045) ng/ml Liver Function 11/10/19 Range/Units 11:43 Total Bilirubin 0.6 (0.2-1) mg/dl AST 51 H (15-37) U/L ALT 34 (12-78) U/L Alkaline Phosphatase 63 (45-117) U/L Albumin 3.0 L (3.4-5.0) gm/dl Urine 11/10/19 Range/Units Unknown Urine Color Dark Yellow Urine Appearance Turbid A (Clear) Urine pH 8.0 H (4.5-7.5) Ur Specific [place] 1.018 (1.000-1.030) Urine Protein 2+ H (Negative) Urine Glucose (UA) Negative (Negative) Diagnostic Findings XR chest 1V portable CLINICAL HISTORY: 89 years-old Female presenting with SEPSIS. FINDINGS: Left subclavian pacer with leads to the right atrium and right ventricular apex. Atherosclerosis of the aortic arch. Cardiac silhouette mildly enlarged. Interval increase and perihilar predominant opacities. Underlying bilateral hilar prominence. Interstitial prominence is also evident. Patchy opacities in the right upper, right lower, and left central lungs. No large effusion or pneumothorax. Suspected osteopenia. Upper abdomen normal. IMPRESSION: 1. Interval worsening of multifocal central predominant infiltrates. Findings could represent pulmonary edema versus multifocal pneumonia. Follow-up advised. 2. Cardiomegaly with some degree of volume overload and congestive change suspected. 3. Bilateral hilar prominence could be vascular or suggest underlying lymphadenopathy. Code Status & VTE Plan Code Status DNR/DNI as confirmed with the patient and her sons on admission VTE Prophylaxis Plan VTE Prophylaxis will be ordered: Yes (1) Respiratory failure with hypoxia Chronicity: acute Qualified Code(s): J96.01 - Acute respiratory failure with hypoxia
[2019-11-10] MEDS ORDERED: GLUCOSE 10 TABS/TUBE PO PRN (15:05)
[2019-11-10] MEDS ORDERED: CARBOHYDRATES FOR HYPOGLYCEMIA PO PRN (15:05)
[2019-11-10] MEDS ORDERED: GLUCAGON FOR INJ 1 MG VIAL SQ PRN (15:05)
[2019-11-10] MEDS ORDERED: DEXTROSE 50% 50 ML SYRINGE IV PRN (15:05)
[2019-11-10] MEDS ORDERED: GLUCOSE 40% GEL 15 GM TUBE PO PRN (15:05)
[2019-11-10] MEDS ORDERED: ACETAMINOPHEN 325 MG TAB PO PRN (16:33)
[2019-11-10] MEDS ORDERED: CONSULT PHARMACY STA (17:27)
--- NOTE | 2019-11-10 17:35 | Pulmonary Consultation ---
Date of Consultation November 10, 2019 Assessment & Plan (1) Pneumonia: Impression: 89-year-old female with comorbidities including diabetes, heart failure, coronary disease, obesity, and pacemaker presenting now with coronavirus infection, pulmonary infiltrates, and hypoxemic respiratory failure. The patient's condition is quite grave currently. She has marked tachypnea despite noninvasive positive pressure ventilation. Family has appropriately elected DO NOT INTUBATE DO NOT RESUSCITATE. Recommendations: 1. I reviewed the case extensively with the admitting hospitalist. Options for treatment at this point time are limited given her advanced age and medical comorbidities. Plaquenil has been studied but results are equivocal at best. In addition the patient has a prolonged QT interval at this point time and I think the risks outweigh the benefits. Remdesivir has been studied and shown to decrease hospitalization rates but did not have a statistically significant impact on mortality all there was a trend. Given the patient's acute decompensation, I doubt any medications at this point time would have a significant enough impact to change her overall mortality. Without intubation and mechanical ventilation, I suspect the patient will do quite poorly. We also discussed potential convalescent plasma however again I think the patient's acuity would not allow for the time needed to obtain convalescent plasma. At this point time I would favor treating her with broad-spectrum antibiotics and supportive care with rapid transition to palliative care should the patient's c linical condition fail to show significant improvement over the next several hours. Given the rapid decline of the patient since presentation to the emergency room, I am not sure that this is a salvageable situation. (2) Respiratory failure with hypoxia: Chronicity: acute Qualified Code(s): J96.01 - Acute respiratory failure with hypoxia (3) Coronavirus infection: History of Present Illness Attending Physician: Seble Maya DO History of Present Illness Asked by hospitalist to assist in management of this elderly patient with hypoxemic respiratory failure due to novel coronavirus infection. History is obtained from review of the electronic medical record and discussion with the admitting hospitalist. Due to novel coronavirus restrictions in an effort to conserve PPE, the patient was not independently interviewed or examined. Patient is an 89-year-old female [facility] She was brought in with respiratory difficulties and hypoxemia. She was placed on oxygen and evaluated in the emergency room. Chest x-ray demonstrated multifocal infiltrates. She did have cough. She had altered mental status and increased work of breathing. She was transition to noninvasive positive pressure ventilation in the emergency room. A rapid coronavirus test was ordered and came back positive. The patient has been admitted to the hospital service. I discussed with Dr. Maya who is just been in discussions with patient's family. She is apparently DO NOT INTUBATE DO NOT RESUSCITATE. There are questions regarding additional interventions for coronavirus infection. Allergies Allergy/AdvReac Type Severity Reaction Status Date / Time Sulfa (Sulfonamide Allergy Intermediate BLISTERS, Verified 11/10/19 12:14 Antibiotics) HIVES morphine Allergy Unknown pt unsure Unverified 11/10/19 12:14 Home Medications Home Medications Medication Instructions Recorded Confirmed Type ergocalciferol (vitamin D2) 50,000 unit PO WK 07/04/18 11/10/19 History [Vitamin D2] Lantus Solostar U-100 Insulin 38 unit SUBCUT HS 08/01/18 11/10/19 History acetaminophen 650 mg PO Q4H PRN 11/10/19 11/10/19 History atorvastatin 10 mg PO QPM 11/10/19 11/10/19 History clopidogrel 75 mg PO QAM 11/10/19 11/10/19 History docusate sodium [Colace] 100 mg PO BID 11/10/19 11/10/19 History escitalopram oxalate [Lexapro] 10 mg PO QAM 11/10/19 11/10/19 History furosemide [Lasix] 20 mg PO 3XWK 11/10/19 11/10/19 History levothyroxine 88 mcg PO QAM 11/10/19 11/10/19 History naproxen sodium 220 mg PO Q6H PRN 11/10/19 11/10/19 History sennosides [senna] 8.6 mg PO UD PRN 11/10/19 11/10/19 History Patient History Medical History Altered mental status (Acute) Bilateral knee pain (Acute) CAD (coronary artery disease) (Chronic) Contusion of multiple sites (Acute) Diabetes (Chronic) Diabetic peripheral neuropathy associated with type 2 diabetes mellitus Facial contusion (Acute) Fall (Acute) Foot deformity Head trauma (Acute) Hematoma of arm (Acute) Hypothyroidism (Chronic) Loss of sensation Obesity (Chronic) Pacemaker (Chronic) Rhabdomyolysis (Acute) Right hip pain (Acute) Right sided weakness (Acute) Sinusitis (Acute) Skin cancer (Resolved) Skin tear of forearm without complication (Acute) Surgical History Hx of appendectomy (Acute) Family History Other Family history non-contributory Social History Preferred Language: Martiniquais Communication Ability: Unable Communication Ability Comment: altered mental status Senior Environmental Consultant Required: No Beliefs That Will Affect Care: None marital status: / Current Living Situation: Long Term [facility] Other Information That Helps Us Care for You: No Feels Safe at Home: Yes Safety Concerns: Feels Safe At This Time Smoking Status: Former smoker Do You Dip or Chew Tobacco: No ; Smoking End Date: 1974 ; Second Hand Exposure: No ; Tobacco Cessation Education Requested by Patient: No Hx Alcohol Use: No Hx Substance Use: No Review of Systems Review of Systems: Please refer to admission H&P Physical Exam Physical Exam: Deferred due to coronavirus restrictions. Please refer to the admission providers physical exam Results & Data Results & Data ([facility]) Vital Signs (Past 12 Hours) Vital Signs Temp Pulse Pulse Resp BP BP BP 11/10/19 17:02 76 37 H 184/67 H 11/10/19 16:55 76 45 H 11/10/19 16:34 37.7 C H 78 48 H 193/55 H 11/10/19 16:33 37.7 C H 73 48 H 193/55 H 11/10/19 15:47 36.6 C 67 35 H 155/56 H 11/10/19 15:45 67 35 H 11/10/19 15:30 67 38 H 155/56 H 11/10/19 15:15 64 36 H 11/10/19 15:00 67 35 H 146/69 H 11/10/19 14:30 69 36 H 157/63 H 11/10/19 14:15 70 36 H 11/10/19 14:01 71 42 H 11/10/19 14:00 72 41 H 159/61 H 11/10/19 13:45 72 30 H 11/10/19 13:30 70 39 H 152/70 H 11/10/19 13:18 70 36 H 11/10/19 13:15 71 45 H 11/10/19 13:00 72 32 H 158/72 H 11/10/19 12:45 69 37 H 11/10/19 12:30 72 29 H 148/69 H 11/10/19 12:15 73 42 H 11/10/19 12:00 75 24 158/52 H 11/10/19 11:45 76 47 H 11/10/19 11:31 78 46 H 11/10/19 11:30 78 40 H 155/63 H 11/10/19 11:28 80 40 H 11/10/19 11:22 36.6 C 76 79 30 H 155/63 H 155/63 H Pulse Ox Pulse Ox 11/10/19 17:02 95 11/10/19 16:55 94 11/10/19 16:34 94 11/10/19 16:33 94 94 11/10/19 15:47 94 11/10/19 15:45 94 11/10/19 15:30 96 11/10/19 15:15 93 11/10/19 15:00 93 11/10/19 14:30 92 11/10/19 14:15 92 11/10/19 14:01 94 11/10/19 14:00 93 11/10/19 13:45 96 11/10/19 13:30 92 11/10/19 13:18 94 11/10/19 13:15 96 11/10/19 13:00 95 11/10/19 12:45 95 11/10/19 12:30 95 11/10/19 12:15 95 11/10/19 12:00 96 11/10/19 11:45 96 11/10/19 11:31 95 11/10/19 11:30 95 11/10/19 11:28 93 11/10/19 11:22 95 Laboratory Results 11/10/19 11:43 11/10/19 11:43 Rapid coronavirus positive BNP 944 Procalcitonin 0.14 Diagnostic Findings Chest x-ray was independently reviewed from today. Lung volumes are slightly low. There are perihilar infiltrates. Pacemaker is in place. PG Care Time/CCT Total # of Minutes Spent Total Time Spent with Patient: Total time spent is greater than 50% in coordination of care (as documented) at patient's floor/unit and/or counseling patient: Coding Level of Care Code 33319 Initial Inpt Care Lvl 3 Diagnoses Pneumonia J18.9 Respiratory failure with hypoxia J96.01 Chronicity: acute Coronavirus infection B34.2 Time Spent (min) 45
[2019-11-10] MEDS ORDERED: CEFEPIME 2,000 MG in SYRINGE 7.5 ML IV ONE (18:00)
[2019-11-10] MEDS ORDERED: VANCOMYCIN HCL 2,000 MG in SODIUM CHLORIDE 0.9% 500 ML IV ONE (18:00)
[2019-11-10] MEDS ORDERED: CEFEPIME CONSULT ACTIVE PRN (18:01)
[2019-11-10] MEDS ORDERED: VANCOMYCIN CONSULT ACTIVE PRN (18:02)
[2019-11-10] MEDS ORDERED: NITROGLYCERIN 2% OINTMENT 30GM TUBE EXT STA (18:03)
[2019-11-10] MEDS ORDERED: ACETAMINOPHEN 1,000 MG/100 ML VIAL IV PRN (18:03)
[2019-11-10] MEDS: INSULIN ASPART 100 UNITS/ML 3 ML PEN SC SCH ×2 (18:24→23:53)
[2019-11-10] MEDS ORDERED: INSULIN GLARGINE SOLOSTAR 100 UNITS/ML 3 ML PEN SC SCH (20:00)
[2019-11-10] MEDS: INSULIN GLARGINE SOLOSTAR 100 UNITS/ML 3 ML PEN SC SCH (20:19)
[2019-11-10] MEDS: TRIMETHOPRIM/POLYMYXIN B OPB SCH (20:20)
--- NOTE | 2019-11-10 20:26 | Pharmacy Report ---
Pharmacy Abx Initial Consult - Date of Service November 10, 2019 - Pharmacy Dosing Scope Date of Consult: 11/09 Consultation requested by: Dr. Maya Pharmacy is consulted to initiate vancomycin/cefepime IV/PO dosing therapy, order appropriate labs and adjust drug dose/frequency. - Subjective The patient is a 89 year old F admitted on 11/10/19 15:04. - Objective Height: 5 ft 5 in Weight: 91.6 kg Vital Signs (Past 12hrs): Vital Signs Temp Pulse Pulse Resp BP BP BP 11/10/19 19:58 38.2 C H 11/10/19 19:57 67 36 H 155/72 H 11/10/19 17:02 76 37 H 184/67 H 11/10/19 16:55 76 45 H 11/10/19 16:35 77 11/10/19 16:34 37.7 C H 78 48 H 193/55 H 11/10/19 16:33 37.7 C H 73 48 H 193/55 H 11/10/19 15:47 36.6 C 67 35 H 155/56 H 11/10/19 15:45 67 35 H 11/10/19 15:30 67 38 H 155/56 H 11/10/19 15:15 64 36 H 11/10/19 15:00 67 35 H 146/69 H 11/10/19 14:30 69 36 H 157/63 H 11/10/19 14:15 70 36 H 11/10/19 14:01 71 42 H 11/10/19 14:00 72 41 H 159/61 H 11/10/19 13:45 72 30 H 11/10/19 13:30 70 39 H 152/70 H 11/10/19 13:18 70 36 H 11/10/19 13:15 71 45 H 11/10/19 13:00 72 32 H 158/72 H 11/10/19 12:45 69 37 H 11/10/19 12:30 72 29 H 148/69 H 11/10/19 12:15 73 42 H 11/10/19 12:00 75 24 158/52 H 11/10/19 11:45 76 47 H 11/10/19 11:31 78 46 H 11/10/19 11:30 78 40 H 155/63 H 11/10/19 11:28 80 40 H 11/10/19 11:22 36.6 C 76 79 30 H 155/63 H 155/63 H Pulse Ox Pulse Ox 11/10/19 19:58 11/10/19 19:57 95 11/10/19 17:02 95 11/10/19 16:55 94 11/10/19 16:35 11/10/19 16:34 94 11/10/19 16:33 94 94 11/10/19 15:47 94 11/10/19 15:45 94 11/10/19 15:30 96 11/10/19 15:15 93 11/10/19 15:00 93 11/10/19 14:30 92 11/10/19 14:15 92 11/10/19 14:01 94 11/10/19 14:00 93 11/10/19 13:45 96 11/10/19 13:30 92 11/10/19 13:18 94 11/10/19 13:15 96 11/10/19 13:00 95 11/10/19 12:45 95 11/10/19 12:30 95 11/10/19 12:15 95 11/10/19 12:00 96 11/10/19 11:45 96 11/10/19 11:31 95 11/10/19 11:30 95 11/10/19 11:28 93 11/10/19 11:22 95 Lab Results (24hrs): Laboratory Tests (24 Hours) 11/10/19 11/10/19 11/10/19 11:43 11:43 11:43 WBC 6.52 Neut # (Auto) 5.28 Creatinine 2.29 H Est Cr Clr Drug Dosing 19.0 Procalcitonin 0.14 Micro Results: 11/10/19 Unknown Urine Culture - Pending Urine,Clean Catch 11/10/19 11:54 Aerobic Blood Culture - Pending Blood Anaerobic Blood Culture - Pending 11/10/19 11:42 Aerobic Blood Culture - Pending Blood Anaerobic Blood Culture - Pending - Risk Factors for Resistance * Resident in a intermediate or extended-care facility - Assessment & Plan Assessment 89 year old F with pneumonia infection/positive COVID. Started on broad spectrum abx with vancomycin and cefepime. Plan Vancomycin IV * 2000 mg iv x 1 ordered (~22 mg/kg) * Patient with ESEQUIEL on admission with Scr 2.29 mg/dL, baseline Scr closer to ~1.4 mg/dL - estimated half life >24 hrs will hold further doses * Will plan to obtain a random level tomorrow AM to assist with further dosing Cefepime * 2 gm iv q 24 hrs (appropriate for CrCl 11-29 / actual CrCl ~19 ml/min) Pharmacy will continue to follow and will adjust dose/frequency as necessary. Thank you.
[2019-11-10] MEDS: HEPARIN SOD 5,000 UNIT/0.5 ML VIAL SQ SCH (22:11)
[2019-11-11] MEDS ORDERED: ALBUMIN 25% 50 ML IV ONE (04:10)
[2019-11-11] MEDS: HEPARIN SOD 5,000 UNIT/0.5 ML VIAL SQ SCH (05:08)
[2019-11-11] MEDS: INSULIN ASPART 100 UNITS/ML 3 ML PEN SC SCH (05:11)
[2019-11-11 06:17] LABS: Hematocrit (blood only) 35.3 % (37-47); Hemoglobin 11.5 g/dL (12.0-16.0); Mean Corpuscular Hemoglobin 28.8 pg (25-34); Mean Corpuscular Hgb Conc 32.6 g/dL (32-36); Mean Corpuscular Volume 88.5 fL (80-100); Mean Platelet Volume 10.2 fL (7.4-10.4); Platelet Count 263 K/uL (130-400); RDW Coefficient of Variation 14.2 % (11.5-14.5); RDW Standard Deviation 46.5 fL (36.4-46.3); Red Blood Count 3.99 M/uL (4.2-5.4); White Blood Count 6.35 K/uL (4.8-10.8)
[2019-11-11 07:00] LABS: Calcium 8.4 mg/dl (8.5-10.1); Creatinine Clr Calc Pharmacy 18.7 ml/min; Est GFR (African American) 21.1; Est GFR (Non-African American) 18.2; Potassium 3.9 mmol/L (3.5-5.1)
[2019-11-11 07:05] LABS: Estimated Average Glucose 143 mg/dl; Hemoglobin A1C 6.6 % (4.5-5.6)
[2019-11-11] MEDS: INSULIN GLARGINE SOLOSTAR 100 UNITS/ML 3 ML PEN SC SCH (08:34)
[2019-11-11] MEDS: TRIMETHOPRIM/POLYMYXIN B OPB SCH ×3 (08:34→17:42)
--- NOTE | 2019-11-11 08:51 | Pulmonology Progress Note ---
Date of Service November 11, 2019 Assessment & Plan (1) COVID-19: Impression: 89-year-old female resident of a skilled nursing admitted with progressive hypoxemic respiratory failure and respiratory distress likely related to novel coronavirus infection. She has been placed on noninvasive positive pressure ventilation but continues to remain uncomfortable and tachypneic. Recommendations: 1. Acute hypoxemic respiratory failure: Cannot rule out components of fluid overload. Recommend continued diuresis. This is complicated by her current kidney disease. This could all be underlying COVID infection. As stated yesterday, I do not think the patient is a good candidate for aggressive interve ntions and given her advanced age and medical comorbidities as well as failure to respond and the fact that the patient is requesting to come off of noninvasive positive pressure ventilation and has an established DNR order, I would favor transition to full palliative care measures especially in light of worsening kidney function. Discussed with the hospitalist at bedside. I would be happy to see this patient back if needed. Feel free to reconsult. Pulmonary critical care will sign off at this time (2) Acute worsening of stage 3 chronic kidney disease: (3) Acute heart failure: (4) Respiratory failure with hypoxia: Chronicity: acute Qualified Code(s): J96.01 - Acute respiratory failure with hypoxia Admission and Anticipated Discharge Date Admission Date: November 10, 2019 Subjective Patient seen and examined using full PPE. She has remained on high noninvasive positive pressure ventilation settings overnight. Tidal volumes remain low. Discussed with respiratory therapy this morning and increased P high. This is resulted in some mild leak. This is not been successful in improving the patient's tachypnea to any significant degree. On my evaluation the patient is awake but cannot really respond to commands. When I asked her if she wants the BiPAP off she repeatedly says off. When I tried to have a discussion with her regarding potential clinical deterioration and , I am not sure that she is able to comprehend what were talking about. Review of Systems Review of Systems: Unobtainable due to cognitive status Physical Exam Constitutional: + acute distress and + ill appearing On full face BiPAP Neck: trachea midline, no thyromegaly Respiratory: Breath sounds are coarse bilaterally Cardiovascular: RRR, no murmur, no edema Gastrointestinal (Abdomen): normal bowel sounds, soft, nontender, no hepatosplenomegaly Results & Data Results & Data ([facility]) Vital Signs (Past 12 Hours) Vital Signs Temp Pulse Pulse Resp BP Pulse Ox 11/11/19 08:40 72 11/11/19 08:05 72 44 H 91 11/11/19 07:42 36.9 C 73 44 H 180/72 H 91 11/11/19 03:54 36.9 C 61 30 H 140/67 94 11/11/19 03:29 60 28 H 93 11/11/19 00:04 65 11/10/19 23:50 37.1 C 63 30 H 133/59 L 94 11/10/19 22:10 37.6 C H 11/10/19 21:45 69 37 H 93 Laboratory Results 11/11/19 05:13 11/11/19 05:13 Diagnostic Findings No new imaging PG Care Time/CCT Total # of Minutes Spent Total Time Spent with Patient: Total time spent is greater than 50% in coordination of care (as documented) at patient's floor/unit and/or counseling patient: Coding Level of Care Code 81639 Subseq Hosp Care Lvl 3 Diagnoses COVID-19 U07.1 Acute worsening of stage 3 chronic kidney disease N18.3 Acute heart failure I50.9 Respiratory failure with hypoxia J96.01 Chronicity: acute
[2019-11-11] MEDS ORDERED: LEVOTHYROXINE SODIUM 44 MCG in SYRINGE 0 ML IV SCH (09:00)
--- NOTE | 2019-11-11 09:18 | Hospitalist Progress Note ---
Date of Service November 11, 2019 Assessment & Plan (1) Comfort measures only status: Transition to comfort care measures. Remove BIPAP, morphine and/or Ativan PRN. Oxygen supplementation. PO intake as tolerated is ok. (2) Severe sepsis: comfort care (3) COVID-19: (4) Acute decompensated heart failure: stop lasix/albumin. Keep cardenas in place. (5) UTI (urinary tract infection): stop abx (6) Demand ischemia: (7) Acute worsening of stage 3 chronic kidney disease: (8) Conjunctivitis: (9) Metabolic encephalopathy: improved mentation this morning. Intermittent confusion expected in setting of mulitple sites of infection and hypoxia. (10) DMII (diabetes mellitus, type 2): stop insulin and sugar checks. (11) Hypothyroidism: (12) DVT prophylaxis: remove SCDs. DNR/DNI Dispo-transition to comfort care measures, patient is expectant. Seble [facility] and Anticipated Discharge Date Admission Date: November 10, 2019 Subjective 89 yo F with dyspnea and hypoxia 2/2 pulmonary infection and heart failure. No improvement overnight and there was a decrease in her ability to pull tidal volumes to <150cc. BIPAP pressure was increased to 20/7 and TV increased to 400-500cc, but this is likely temporary. The patient is visibly exhausted. I took her mask off and she was able to have some ice chips. She also was able to tell me who and where she was and was following directions appropriately. She appears to understand that her condition is grave and even with the mask on, there is only a slim chance that she might make it through this. She clearly told me to keep the mask off. I contacted her sons right away who were given the opportunity to Zoom her prior to any palliative medications such as morphine to treat her tachypnea. The patient currently denies any pain Review of Systems Review of Systems: limited ROS 2/2 severe fatigue and breathlessness. No pain at this time. Physical Exam Physical Exam: CONSTITUTIONAL: WNWD, vitals as above, generally ill- appearing, fatigued, exhausted, working to breathe. EYES: pupils are equal and round bilaterally, crusting on eyelashes, no scleral icterus ENT: external ear and nose normal, BIPAP mask in place, mucous membranes are very dry. NECK: trachea midline RESPIRATORY: increased respiratory effort, crackles throughout left lung, more clear on the right. CARDIOVASCULAR: regular rate and rhythm, S1 and 2 heard without murmurs, gallops or rubs, no JVD, no peripheral edema CHEST: +pacemaker GASTROINTESTINAL: soft, nontender, nondistended MUSCULOSKELETAL: strength 5/5 throughout, head is normocephalic and atraumatic SKIN: warm and dry NEUROLOGIC: oriented to person and place, limited exam 2/2 critical illness. Results & Data Results & Data ([facility]) Vital Signs (Past 12 Hours) Vital Signs Temp Pulse Pulse Resp BP Pulse Ox 11/11/19 08:40 72 11/11/19 08:05 72 44 H 91 11/11/19 07:42 36.9 C 73 44 H 180/72 H 91 11/11/19 03:54 36.9 C 61 30 H 140/67 94 11/11/19 03:29 60 28 H 93 11/11/19 00:04 65 11/10/19 23:50 37.1 C 63 30 H 133/59 L 94 11/10/19 22:10 37.6 C H 11/10/19 21:45 69 37 H 93 Laboratory Results Short CBC 11/10/19 11/11/19 Range/Units 11:43 05:13 WBC 6.52 6.35 (4.8-10.8) K/uL Hgb 12.8 11.5 L (12.0-16.0) g/dL Hct 39.4 35.3 L (37-47) % Plt Count 268 263 (130-400) K/uL BMP 11/10/19 11/11/19 11:43 05:13 Sodium 141 145 Potassium 4.7 3.9 D Chloride 111 H 113 H Carbon Dioxide 24 24 BUN 53 H 58 H Creatinine 2.29 H 2.32 H Glucose 229 H 126 H Calcium 8.5 8.4 L Cardiac Enzymes 11/10/19 11/10/19 Range/Units 11:43 18:30 Troponin I 0.046 H* 0.045 (0-0.045) ng/ml Liver Function 11/10/19 Range/Units 11:43 Total Bilirubin 0.6 (0.2-1) mg/dl AST 51 H (15-37) U/L ALT 34 (12-78) U/L Alkaline Phosphatase 63 (45-117) U/L Albumin 3.0 L (3.4-5.0) gm/dl Urine 11/10/19 Range/Units Unknown Urine Color Dark Yellow Urine Appearance Turbid A (Clear) Urine pH 8.0 H (4.5-7.5) Ur Specific [place] 1.018 (1.000-1.030) Urine Protein 2+ H (Negative) Urine Glucose (UA) Negative (Negative) Medications Administered Current Inpatient Medications Dextrose (Dextrose 50%) 25 - 50 ml IV UD PRN; Protocol PRN Reason: Hypoglycemia Protocol Stop: 12/10/19 15:04 Glucagon (Glucagen) 1 mg SQ UD PRN; Protocol PRN Reason: Hypoglycemia Protocol Stop: 12/10/19 15:04 Glucose (Dex4 Glucose) 4 - 8 tabs PO UD PRN; Protocol PRN Reason: Hypoglycemia Protocol Stop: 12/10/19 15:04 Glucose (Glucose 40%) 15 - 30 gm PO UD PRN; Protocol PRN Reason: Hypoglycemia Protocol Stop: 12/10/19 15:04 Heparin Sodium (Porcine) (Heparin Sodium (Porcine)) 5,000 units SQ Q8 NESSA Stop: 12/10/19 21:59 Last Admin: 11/11/19 05:08 Dose: 5,000 units Documented by: Acetaminophen (Ofirmev) 1,000 mg in 100 mls @ 400 mls/hr IV Q8H PRN PRN Reason: Pain or Fever Stop: 11/13/19 18:02 Last Infusion: 11/10/19 20:44 Dose: Infused Documented by: Levothyroxine Sodium 44 mcg/ (Syringe) 2.2 mls @ 1.1 mls/min IV DAILY@0900 [facility] Stop: 12/11/19 08:59 Cefepime HCl 2,000 mg/ Syringe 20 mls @ 5 mls/min IV DAILY@1999 [facility]; Protocol Stop: 11/18/19 19:59 Insulin Aspart (Novolog Flexpen) 0 units SC Q6 NESSA Stop: 12/10/19 17:59 Last Admin: 11/11/19 05:11 Dose: Not Given Documented by: Insulin Glargine (Lantus Solostar Pen) 10 units SC 0800,1999 [facility] Stop: 12/10/19 19:59 Last Admin: 11/11/19 08:34 Dose: 10 units Documented by: Miscellaneous (Carbohydrates For Hypoglycemia) 15 - 30 gm PO UD PRN PRN Reason: Hypoglycemia Protocol Stop: 12/10/19 15:04 Miscellaneous Information (Cefepime Consult Active) 1 ea N/A UD PRN PRN Reason: Consult Stop: 12/10/19 18:00 Miscellaneous Information (Consult) 1 ea N/A UD PRN PRN Reason: Consult Stop: 12/10/19 18:01 Polymyxin/Trimethoprim Sulfate (Polytrim) 1 drops OPB QID NESSA Stop: 11/17/19 20:59 Last Admin: 11/11/19 08:34 Dose: 1 drops Documented by:
[2019-11-11] MEDS ORDERED: MoRPHine SULFATE 2 MG/ML CARP IV PRN (09:35)
[2019-11-11 11:46] LABS: iSTAT Arterial Blood Gas HCO3 21 meg/L (19-24); iSTAT Arterial Blood Gas pCO2 35 mmHg (35-46); iSTAT Arterial Blood Gas pH 7.39 (7.35-7.45); iSTAT Arterial Blood Gas pO2 66 mmHg (80-95); iSTAT Carbon Dioxide 22 mmol/L (24-31); iSTAT Hematocrit 36 % (37-47); iSTAT Hemoglobin 12.2 g/dl (12.0-16.0); iSTAT Potassium 4.2 mmol/L (3.3-5.0); iSTAT Sodium 142 mmol/L (135-144)
--- NOTE | 2019-11-11 13:26 | Infectious Disease Consult ---
Date of Consultation November 11, 2019 Assessment & Plan (1) COVID-19: pt now comfort meausures only. will be available for any questions if needed. (2) Comfort measures only status: History of Present Illness Attending Physician: Seble Maya DO pt admitted from local snf with known +COVID staff and residents. had change in mental status and sob. she was found to be in resp distress and unfortunately did not respond well to oxygen and supportive care overnight. she was also evaluated by pulm and felt too high risk for experimental therapies. ID also consulted due to + COVID test done in ER, CXR with b/l infiltrates. she was started on cefepime, ua >30 wbc +4 bacteria and culture growing proteus. blood cultures pending. she has unfortunatley continued to decline. she is now comfort measures only. Allergies Allergy/AdvReac Type Severity Reaction Status Date / Time Sulfa (Sulfonamide Allergy Intermediate BLISTERS, Verified 11/10/19 12:14 Antibiotics) HIVES morphine Allergy Unknown pt unsure Unverified 11/10/19 12:14 Home Medications Home Medications Medication Instructions Recorded Confirmed Type ergocalciferol (vitamin D2) 50,000 unit PO WK 07/04/18 11/10/19 History [Vitamin D2] Lantus Solostar U-100 Insulin 38 unit SUBCUT HS 08/01/18 11/10/19 History acetaminophen 650 mg PO Q4H PRN 11/10/19 11/10/19 History atorvastatin 10 mg PO QPM 11/10/19 11/10/19 History clopidogrel 75 mg PO QAM 11/10/19 11/10/19 History docusate sodium [Colace] 100 mg PO BID 11/10/19 11/10/19 History escitalopram oxalate [Lexapro] 10 mg PO QAM 11/10/19 11/10/19 History furosemide [Lasix] 20 mg PO 3XWK 11/10/19 11/10/19 History levothyroxine 88 mcg PO QAM 11/10/19 11/10/19 History naproxen sodium 220 mg PO Q6H PRN 11/10/19 11/10/19 History sennosides [senna] 8.6 mg PO UD PRN 11/10/19 11/10/19 History Patient History Medical History Altered mental status (Acute) Bilateral knee pain (Acute) CAD (coronary artery disease) (Chronic) Contusion of multiple sites (Acute) Diabetes (Chronic) Diabetic peripheral neuropathy associated with type 2 diabetes mellitus Facial contusion (Acute) Fall (Acute) Foot deformity Head trauma (Acute) Hematoma of arm (Acute) Hypothyroidism (Chronic) Loss of sensation Obesity (Chronic) Pacemaker (Chronic) Rhabdomyolysis (Acute) Right hip pain (Acute) Right sided weakness (Acute) Sinusitis (Acute) Skin cancer (Resolved) Skin tear of forearm without complication (Acute) Surgical History Hx of appendectomy (Acute) Family History Other Family history non-contributory Social History Preferred Language: Ethiopian Communication Ability: Unable Digital Field Service Technician Required: No Beliefs That Will Affect Care: None marital status: / Current Living Situation: [facility] Current Living Situation Comment: [facility] Feels Safe at Home: Yes Smoking Status: Former smoker Second Hand Exposure: No ; Hx Alcohol Use: No Hx Substance Use: No Review of Systems Review of Systems: per h&p Results & Data ([facility]) Vital Signs (Past 12 Hours) Vital Signs Temp Pulse Pulse Resp BP Pulse Ox 11/11/19 08:40 72 11/11/19 08:05 72 44 H 91 11/11/19 07:42 36.9 C 73 44 H 180/72 H 91 11/11/19 03:54 36.9 C 61 30 H 140/67 94 11/11/19 03:29 60 28 H 93 11/11/19 00:04 65 11/10/19 23:50 37.1 C 63 30 H 133/59 L 94 11/10/19 22:10 37.6 C H 11/10/19 21:45 69 37 H 93 Laboratory Results Microbiology 11/10/19 11:42 Blood Aerobic Blood Culture - Preliminary No growth in Aerobic bottle after 24 hours. 11/10/19 11:42 Blood Anaerobic Blood Culture - Preliminary No growth in Anaerobic bottle after 24 hours. 11/10/19 11:54 Blood Aerobic Blood Culture - Final 11/10/19 11:54 Blood Anaerobic Blood Culture - Preliminary No growth in Anaerobic bottle after 24 hours. 11/10/19 Unknown Urine,Clean Catch Urine Culture - Preliminary Proteus species PG Care Time/CCT Total # of Minutes Spent Total Time Spent with Patient: Total time spent is greater than 50% in coordination of care (as documented) at patient's floor/unit and/or counseling patient: Coding Level of Care Code 09249 Inpt Consult Level 1 Diagnoses COVID-19 U07.1 Comfort measures only status Z51.5
[2019-11-11] MEDS ORDERED: MoRPHine SULFATE 2 MG/ML CARP IV STA (18:16)
[2019-11-11] MEDS ORDERED: CEFEPIME 2,000 MG in SYRINGE 7.5 ML IV ONE (20:00)
[2019-11-11] MEDS ORDERED: CEFEPIME 2,000 MG in SYRINGE 7.5 ML IV SCH (20:00)
[2019-11-11] MEDS: MoRPHine SULFATE 2 MG/ML CARP IV PRN (21:00)
[2019-11-12] MEDS: MoRPHine SULFATE 2 MG/ML CARP IV PRN ×5 (02:05→18:27)
[2019-11-12] MEDS ORDERED: MoRPHine SULFATE 2 MG/ML CARP IV STA (10:30)
--- NOTE | 2019-11-12 10:43 | Hospitalist Progress Note ---
Date of Service November 12, 2019 Assessment & Plan (1) Comfort measures only status: Continuing comfort measures with morphine. Will give additional bolus now in setting of tachypnea. Cont to titrate morphine based on RR. Ativan supplementation as needed. Will add scopolamine patch today. Cont oxygen. (2) Acute respiratory failure due to COVID-19: (3) Severe sepsis: (4) UTI (urinary tract infection): (5) Acute diastolic (congestive) heart failure: (6) Acute kidney failure: Admission and Anticipated Discharge Date Admission Date: November 10, 2019 Subjective pt is breathing about 40 times per minute, reporting no pain or discomfort. Earlier this morning she was comfortable-appearing with respiratory rate less than 20. ROS otherwise negative. Review of Systems Review of Systems: All systems reviewed & are unremarkable except as noted in Subjective Physical Exam Physical Exam: CONSTITUTIONAL: WNWD, vitals as above, generally ill- appearing, fatigued, appears comfortable EYES: crusting on eyelashes, no scleral icterus ENT: external ear and nose normal, oxygen via nasal canula in place NECK: trachea midline RESPIRATORY: rapid shallow breathing present. CARDIOVASCULAR: regular rate and rhythm, S1 and 2 heard without murmurs, gallops or rubs, no JVD, no peripheral edema CHEST: +pacemaker GASTROINTESTINAL: soft, nontender, nondistended SKIN: warm and dry, no evidence of mottling, extremities are warm to touch. Results & Data Results & Data ([facility]) Medications Administered Current Inpatient Medications Acetaminophen (Ofirmev) 1,000 mg in 100 mls @ 400 mls/hr IV Q8H PRN PRN Reason: Pain or Fever Stop: 11/13/19 18:02 Last Infusion: 11/10/19 20:44 Dose: Infused Documented by: Lorazepam (Ativan) 0.5 mg in 1 mls @ 0.5 mls/min IV Q6H PRN PRN Reason: severe agitation or anxiety Stop: 12/11/19 09:34 Morphine Sulfate (Morphine Sulfate) 1 mg IV Q1H PRN PRN Reason: If RR>20 Stop: 11/25/19 09:34 Last Admin: 11/12/19 08:52 Dose: 1 mg Documented by:
[2019-11-12] MEDS: SCOPOLAMINE 1.5 MG TDSY TD SCH (11:57)
[2019-11-12] MEDS: CHECK SCOPOLAMINE PATCH PLACEMENT SCH (15:40)
[2019-11-13] MEDS: CHECK SCOPOLAMINE PATCH PLACEMENT SCH ×3 (00:32→15:36)
[2019-11-13] MEDS: MoRPHine SULFATE 2 MG/ML CARP IV PRN (04:46)
--- NOTE | 2019-11-13 19:23 | Hospitalist Progress Note ---
Date of Service November 13, 2019 Assessment & Plan (1) Comfort measures only status: Continuing comfort measures with morphine. Tachypnea improved overnight and she appears very comfortable. Cont to titrate morphine based on needs. Ativan supplementation as needed. Oxygen supplementation (2) Acute respiratory failure due to COVID-19: (3) Severe sepsis: comfort care (4) UTI (urinary tract infection): (5) Acute diastolic (congestive) heart failure: (6) Acute kidney failure: Admission and Anticipated Discharge Date Admission Date: November 10, 2019 Subjective responds to questions but very weak asked for water but too weak to drink through a straw or even swallow denies pain too weak to speak or move much appears comfortable-no increased work of breathing. Review of Systems Review of Systems: All systems reviewed & are unremarkable except as noted in Subjective Physical Exam Physical Exam: CONSTITUTIONAL: WNWD, vitals as above, generally ill- appearing, fatigued, appears comfortable ENT: external ear and nose normal, oxygen via nasal canula in place NECK: trachea midline RESPIRATORY: shallow breathing present, no increased work of breathing. CARDIOVASCULAR: regular rate and rhythm, S1 and 2 heard without murmurs, gallops or rubs, no JVD, no peripheral edema CHEST: +pacemaker GASTROINTESTINAL: soft, nontender, nondistended SKIN: warm and dry, no evidence of mottling, extremities are warm to touch. Results & Data Results & Data ([facility]) Medications Administered Current Inpatient Medications Lorazepam (Ativan) 0.5 mg in 1 mls @ 0.5 mls/min IV Q6H PRN PRN Reason: severe agitation or anxiety Stop: 12/11/19 09:34 Miscellaneous (Check Scopolamine Patch Placement) 1 ea N/A QS NESSA Stop: 12/12/19 15:59 Last Admin: 11/13/19 15:36 Dose: 1 ea Documented by: Miscellaneous (Remove Transderm-Scop Patch) 1 ea N/A Q72H NESSA Stop: 12/15/19 10:58 Morphine Sulfate (Morphine Sulfate) 1 mg IV Q1H PRN PRN Reason: If RR>20 Stop: 11/25/19 09:34 Last Admin: 11/13/19 04:46 Dose: 1 mg Documented by: Scopolamine (Transderm-Scop) 1.5 mg TD Q72H NESSA Stop: 12/12/19 10:59 Last Admin: 11/12/19 11:57 Dose: 1.5 mg Documented by:
[2019-11-14] MEDS: CHECK SCOPOLAMINE PATCH PLACEMENT SCH ×3 (07:17→15:27)
[2019-11-14] MEDS ORDERED: MoRPHine SULFATE 2 MG/ML CARP IV STA (09:31)
[2019-11-14] MEDS: MoRPHine SULFATE 2 MG/ML CARP IV PRN ×2 (10:23→22:51)
[2019-11-14] MEDS ORDERED: LORazepam 1 MG/2 ML VIAL IV STA (11:01)
--- NOTE | 2019-11-14 11:02 | Hospitalist Progress Note ---
Date of Service November 14, 2019 Assessment & Plan (1) Comfort measures only status: Continuing comfort measures with morphine. Cont to titrate morphine based on needs. Ativan supplementation as needed. Oxygen supplementation. Family was updated by phone (2) Acute respiratory failure due to COVID-19: (3) Severe sepsis: comfort care (4) UTI (urinary tract infection): stop abx (5) Acute diastolic (congestive) heart failure: (6) Acute kidney failure: Admission and Anticipated Discharge Date Admission Date: November 10, 2019 Subjective Too weak to response Shakes head no when asked if in any pain Shakes head that she is doing OK when asked Some facial grimacing noted and grimacing when moved her arm slightly. Review of Systems Review of Systems: Unobtainable due to cognitive status Physical Exam Physical Exam: CONSTITUTIONAL: WNWD, vitals as above, generally ill- appearing, fatigued, appears comfortable ENT: external ear and nose normal, oxygen via nasal canula in place NECK: trachea midline RESPIRATORY: shallow breathing present, no increased work of breathing. CARDIOVASCULAR: regular rate and rhythm, S1 and 2 heard without murmurs, gallops or rubs, no JVD, no peripheral edema CHEST: +pacemaker GASTROINTESTINAL: soft, nontender, nondistended SKIN: warm and dry, no evidence of mottling, extremities are warm to touch. Results & Data Results & Data ([facility]) Vital Signs (Past 12 Hours) Vital Signs Resp 11/14/19 09:36 26 H Medications Administered Current Inpatient Medications Lorazepam (Ativan) 0.5 mg in 1 mls @ 0.5 mls/min IV Q6H PRN PRN Reason: severe agitation or anxiety Stop: 12/11/19 09:34 Miscellaneous (Check Scopolamine Patch Placement) 1 ea N/A QS NESSA Stop: 12/12/19 15:59 Last Admin: 11/14/19 07:17 Dose: 1 ea Documented by: Miscellaneous (Remove Transderm-Scop Patch) 1 ea N/A Q72H NESSA Stop: 12/15/19 10:58 Morphine Sulfate (Morphine Sulfate) 1 mg IV Q1H PRN PRN Reason: If RR>20 Stop: 11/25/19 09:34 Last Admin: 11/14/19 10:23 Dose: 1 mg Documented by: Scopolamine (Transderm-Scop) 1.5 mg TD Q72H NESSA Stop: 12/12/19 10:59 Last Admin: 11/12/19 11:57 Dose: 1.5 mg Documented by:
[2019-11-14] MEDS: LORazepam 0.5 MG/1 ML VIAL IV PRN (17:55)
[2019-11-15] MEDS: CHECK SCOPOLAMINE PATCH PLACEMENT SCH ×3 (01:39→16:00)
[2019-11-15] MEDS: MoRPHine SULFATE 2 MG/ML CARP IV PRN (06:32)
[2019-11-15] MEDS ORDERED: MoRPHine SULFATE 2 MG/ML CARP IV STA (09:56)
[2019-11-15] MEDS ORDERED: STAT IV Infusion **Titration per Protocol STA (10:51)
[2019-11-15] MEDS: SCOPOLAMINE 1.5 MG TDSY TD SCH (10:52)
[2019-11-15] MEDS: MoRPHine SULF/NSS 250 MG/250 ML BTL IV SCH (11:22)
--- NOTE | 2019-11-15 11:22 | Hospitalist Progress Note ---
Date of Service November 15, 2019 Assessment & Plan (1) Comfort measures only status: Continuing comfort measures with morphine. Cont morphine drip based on needs. Ativan supplementation as needed. Oxygen supplementation. Family was updated by phone (2) Acute respiratory failure due to COVID-19: (3) Severe sepsis: comfort care (4) UTI (urinary tract infection): stop abx (5) Acute diastolic (congestive) heart failure: (6) Acute kidney failure: Admission and Anticipated Discharge Date Admission Date: November 10, 2019 Subjective obtunded, ROS not available. RR was 30 so morphine drip initiated Discussed care plan with family who were in agreement. Review of Systems Review of Systems: All systems reviewed & are unremarkable except as noted in Subjective Physical Exam Physical Exam: CONSTITUTIONAL: WNWD, vitals as above, generally ill- appearing, fatigued, appears comfortable ENT: external ear and nose normal, oxygen via nasal canula in place NECK: trachea midline RESPIRATORY: shallow breathing present, slght increased work of breathing. CARDIOVASCULAR: regular rate and rhythm, S1 and 2 heard without murmurs, gallops or rubs, no JVD, no peripheral edema CHEST: +pacemaker GASTROINTESTINAL: soft, nontender, nondistended SKIN: warm and dry, no evidence of mottling, extremities are warm to touch. Results & Data Results & Data ([facility]) Medications Administered Current Inpatient Medications Lorazepam (Ativan) 0.5 mg in 1 mls @ 0.5 mls/min IV Q6H PRN PRN Reason: severe agitation or anxiety Stop: 12/11/19 09:34 Last Admin: 11/15/19 15:01 Dose: 0.5 mls/min Documented by: Morphine Sulfate (Morphine Sulf/Nss) 250 mg in 250 mls @ 2 mls/hr IV .Q24H NESSA; Protocol Stop: 11/29/19 10:59 Last Titration: 11/15/19 22:40 Dose: 2 mg/hr, 2 mls/hr Documented by: Miscellaneous (Check Scopolamine Patch Placement) 1 ea N/A QS [facility] Stop: 12/12/19 15:59 Last Admin: 11/15/19 16:00 Dose: 1 ea Documented by: Miscellaneous (Remove Transderm-Scop Patch) 1 ea N/A Q72H [facility] Stop: 12/15/19 10:58 Last Admin: 11/15/19 10:52 Dose: 1 ea Documented by: Morphine Sulfate (Morphine Sulfate) 1 mg IV Q1H PRN PRN Reason: If RR>20 Stop: 11/25/19 09:34 Last Admin: 11/15/19 06:32 Dose: 1 mg Documented by: Scopolamine (Transderm-Scop) 1.5 mg TD Q72H NESSA Stop: 12/12/19 10:59 Last Admin: 11/15/19 10:52 Dose: 1.5 mg Documented by:
[2019-11-15] MEDS: LORazepam 0.5 MG/1 ML VIAL IV PRN (15:01)
[2019-11-16] MEDS: CHECK SCOPOLAMINE PATCH PLACEMENT SCH ×3 (00:25→16:30)
[2019-11-16] MEDS: MoRPHine SULF/NSS 250 MG/250 ML BTL IV SCH (11:55)
--- NOTE | 2019-11-16 12:47 | Hospitalist Progress Note ---
Date of Service November 16, 2019 Assessment & Plan (1) Comfort measures only status: Continuing comfort measures with morphine. Cont morphine drip based on needs. Increased to 3mg/hr. Ativan supplementation as needed. Oxygen supplementation. Family was updated by phone (2) Acute respiratory failure due to COVID-19: (3) Severe sepsis: comfort care (4) UTI (urinary tract infection): stop abx (5) Acute diastolic (congestive) heart failure: (6) Acute kidney failure: Admission and Anticipated Discharge Date Admission Date: November 10, 2019 Subjective Pt appears comfortable. Not working to breathe No tachycardia noted Some apneic breathing. Review of Systems Review of Systems: All systems reviewed & are unremarkable except as noted in Subjective Physical Exam Physical Exam: CONSTITUTIONAL: WNWD, vitals as above, generally ill- appearing, fatigued, appears comfortable ENT: external ear and nose normal, oxygen via nasal canula in place NECK: trachea midline RESPIRATORY: shallow, apneic breathing present CARDIOVASCULAR: regular rate and rhythm, S1 and 2 heard without murmurs, gallops or rubs, no JVD, no peripheral edema CHEST: +pacemaker GASTROINTESTINAL: soft, nontender, nondistended SKIN: warm and dry, no evidence of mottling, extremities are warm to touch. Results & Data Results & Data ([facility]) Medications Administered Current Inpatient Medications Lorazepam (Ativan) 0.5 mg in 1 mls @ 0.5 mls/min IV Q6H PRN PRN Reason: severe agitation or anxiety Stop: 12/11/19 09:34 Last Admin: 11/15/19 15:01 Dose: 0.5 mls/min Documented by: Morphine Sulfate (Morphine Sulf/Nss) 250 mg in 250 mls @ 2 mls/hr IV .Q24H NESSA; Protocol Stop: 11/29/19 10:59 Last Titration: 11/16/19 12:47 Dose: 3 mg/hr, 3 mls/hr Documented by: Miscellaneous (Check Scopolamine Patch Placement) 1 ea N/A QS [facility] Stop: 12/12/19 15:59 Last Admin: 11/16/19 09:07 Dose: 1 ea Documented by: Miscellaneous (Remove Transderm-Scop Patch) 1 ea N/A Q72H [facility] Stop: 12/15/19 10:58 Last Admin: 11/15/19 10:52 Dose: 1 ea Documented by: Morphine Sulfate (Morphine Sulfate) 1 mg IV Q1H PRN PRN Reason: If RR>20 Stop: 11/25/19 09:34 Last Admin: 11/15/19 06:32 Dose: 1 mg Documented by: Scopolamine (Transderm-Scop) 1.5 mg TD Q72H [facility] Stop: 12/12/19 10:59 Last Admin: 11/15/19 10:52 Dose: 1.5 mg Documented by:
[2019-11-17] MEDS: CHECK SCOPOLAMINE PATCH PLACEMENT SCH (00:08)
--- NOTE | 2019-11-17 10:17 | Death Summary ---
Date of Service November 17, 2019 Pronouncement Note Date and Time of Date of : 11/17/19 Time of : 08:55 PCOD Preliminary cause of : COVID-19 Contributing Factors (1) Acute respiratory failure due to COVID-19: (2) Severe sepsis: (3) UTI (urinary tract infection): (4) Acute diastolic (congestive) heart failure: (5) Acute kidney failure: Summary Additional details: Patient ceased to breathe at 0855. No heart sounds or respirations. Pupils fixed. Family notified by phone (son Jude). Ship Surveyor: Nixon Estrada in [place]. Additional Data Confirmation of : no pulse, no respirations, no heart sounds and pupils fixed and dilated Family: contacted (Salvador Roque contacted by phone.) Attending physician: Cornelius Márquez MD
--- NOTE | 2019-11-17 10:21 | Discharge Summary ---
Date of Service Date of Admission: 11/10/19 Date of : 11/17/19 Admission HPI Per Admitting Provider 89 yo F presents with acute respiratory failure from [facility]. The patient has a h/o stroke with some questionable issues with communication at baseline, and she is currently answering some questions but not others. Intermittent confusion appears to be present, limiting the history. She reports not being in any pain, and is currently on BIPAP and appears comfortable. She cannot give more history beyond this. We did have a conversation about code status and she communicated to me that she does not want to be intubated. The question of CPR was a little more difficult to get an answer for, however, so I called and spoke with her son, Jude. He confirmed that she is a DNR/DNI and this was updated in the chart. History was gathered from reports from staff at [facility] and written records. Per staff at , she was exhibiting confusion, shortness of breath and increased fatigue over the past two days. Temp max was 99F at the facility. She began to desaturate into the high 80s on room air yesterday, with a worsening of this this morning prompting transfer to the ER. It is known that there are positive cases at her nursing facility, however, it is unknown if she was directly exposed to someone who was positive for COVID-19. Principal Diagnosis COVID-19 acute hypoxic respiratory failure severe sepsis COVID-19 pneumonia acute on chronic diastolic heart failure coronary artery disease with demand ischemia acute kidney injury metabolic encephalopathy Discharge Data Allergies Allergy/AdvReac Type Severity Reaction Status Date / Time Sulfa (Sulfonamide Allergy Intermediate BLISTERS, Verified 11/10/19 12:14 Antibiotics) HIVES morphine Allergy Unknown pt unsure Unverified 11/10/19 12:14 Consultations 11/10/19 15:09 ED Decision to Admit Stat 11/10/19 16:33 Consult Case Management - Discharge Planning Routine Consult Infectious Diseases Routine Consult Pulmonology Routine Hospital Course (1) COVID-19: 89 YO female with history of coronary artery disease, cerebrovascular disease, diabetes mellitus type 2, and other problems. She resided in a personal fdc where other residents were diagnosed with COVID-19. Presented to ED with severe sepsis, acute respiratory failure, decompensated CHF, change of mental status, and other problems. Initially placed on BiPAP. Nasopharyngeal SARS-CoV-2 PCR was positive. Consultations were obtained with ID and Pulmonary Medicine. Please see H&P, consults, and progress notes for details of specific problems. Her condition continued to worsen and she was transitioned to comfort care. She peacefully at 0855 on 11/17/19. (2) Severe sepsis: (3) Respiratory failure with hypoxia: (4) Acute respiratory failure due to COVID-19: (5) Acute diastolic (congestive) heart failure: (6) ESEQUIEL (acute kidney injury): (7) Acute UTI (urinary tract infection): (8) CAD (coronary artery disease): (9) Demand ischemia: (10) Metabolic encephalopathy: (11) Hypertension: (12) DMII (diabetes mellitus, type 2): Total Time Total Time Spent Total Time Spent (In Minutes): 0 Discharge Plan Discharge Items Patient Disposition: Reason For Visit: COVID-19 INFECTION,ACUTE RESPIRATORY FAILURE Condition on Discharge: Critical Follow-up/Referrals: [facility] [Primary Care Provider] - Stand-Alone Forms: [facility] Admission Data Admit Date/Time: 11/10/19 15:04 Other [place] Date/Time DO NOT enter until pt leaves facility: 11/17/19 08:55
== END 2019-11-17 08:55 | disposition expired | DRG 871 ==
LOC: ED 11:22 → SUATTDRO 15:04 → 2E 15:04